=== PATIENT | male | born 1970 | race Caucasian/White ===

== ENCOUNTER 2017-05-17 07:07 | Emergency (ER) | payer MEDICAID, SELFPAY ==
[2017-05-17] MEDS: KETOROLAC 60 MG/2 ML VIAL (J1885) IM ×2 (07:48)
[2017-05-17] MEDS: METHOCARBAMOL 500 MG TAB PO ×2 (07:48)
[2017-05-17] MEDS: NORCO, ANEXSIA 5/325MG TABLET (HYDROcodone/ACETAMINOPHEN) PO ×2 (07:48)
== END 2017-05-17 08:32 | disposition home or self-care (01) ==
LOC: M ED 07:07
DX: S39.012A Strain of muscle, fascia and tendon of lower back, initial encounter (principal); X50.0XXA Overexertion from strenuous movement or load, initial encounter; Y92.009 Unspecified place in unspecified non-institutional (private) residence as the place of occurrence of the external cause; Y93.89 Activity, other specified; F17.210 Nicotine dependence, cigarettes, uncomplicated; Z79.899 Other long term (current) drug therapy
CPT/HCPCS: J1885

== ENCOUNTER 2017-05-17 23:27 | Inpatient (IN) | payer MEDICAID, SELFPAY ==
[2017-05-17] MEDS: NS 1,000 ML IV ×2 (23:43→23:50)
[2017-05-17] MEDS: EPINEPHrine 1MG/10ML SYRINGE 1.5IN IV ×2 (23:45→23:48)
[2017-05-17] MEDS: SODIUM BICARBONATE 8.4% INJ 50 ML SYRINGE IV ×2 (23:45→23:47)
[2017-05-17] MEDS: VECURONIUM BROMIDE 10 MG VIAL IV (23:55)
[2017-05-17] MEDS ORDERED: ISOVUE-370 76% 100ML VIAL (Q9967) As Ordered (23:56)
[2017-05-18] MEDS: NS 1,000 ML IV ×3 (00:10→18:07)
[2017-05-18 00:38] LABS: BEDSIDE GLUCOSE 440 MG/DL (70-105)
[2017-05-18 00:39] LABS: INR 1.21; PROTHROMBIN TIME 15.5 SECONDS (12.4-14.5)
[2017-05-18 00:40] LABS: ANION GAP 16 MEQ/L (8-16); BLOOD UREA NITROGEN 32 MG/DL (7-18); CALCIUM LEVEL 8.3 MG/DL (8.5-10.1); CARBON DIOXIDE LEVEL 18 MEQ/L (21-32); CHLORIDE LEVEL 107 MEQ/L (98-107); CREATININE FOR GFR 2.45 MG/DL (0.70-1.30); GLOMERULAR FILTRATION RATE 30.2 (>60); GLUCOSE, FASTING 321 MG/DL (70-100); PARTIAL THROMBOPLASTIN TIME 23.5 SECONDS (26.8-37.9); POTASSIUM SERUM 3.4 MEQ/L (3.5-5.1); SODIUM LEVEL 141 MEQ/L (136-145)
[2017-05-18 00:41] LABS: ABG BASE EXCESS -19.7 (-2.0-2.0); ABG HCO3 11.2 MEQ/L (22.0-26.0); ABG O2 SATURATION 97.6 % (95.0-99.0); ABG PARTIAL PRESSURE CO2 54.2 mmHg (35.0-45.0); ABG PARTIAL PRESSURE O2 151.1 mmHg (75.0-100.0); ABG STANDARD HCO3 9.2 MEQ/L (22.0-26.0); ABG TOTAL CO2 12.9 MEQ/L (22.0-29.0)
[2017-05-18 00:47] LABS: ABG pH (ARTERIAL) 6.933 UNITS (7.350-7.450)
[2017-05-18 01:01] LABS: ALBUMIN 3.2 GM/DL (3.2-5.2); ALBUMIN/GLOBULIN RATIO 0.97 (1.00-1.93); ALKALINE PHOSPHATASE 78 U/L (45-117); ALT/SGPT 29 U/L (12-78); AMYLASE 29 U/L (25-115); AST/SGOT 19 U/L (7-37); BILIRUBIN,DIRECT < 0.1 MG/DL (0.0-0.2); BILIRUBIN,TOTAL 0.5 MG/DL (0.2-1.0); CK-MB VALUE MASS 5.6 NG/ML (0.0-3.6); CPK CREATINE PHOSPHOKINASE 200 U/L (39-308); ETHYL ALCOHOL (ETHANOL) < 0.003 % (0.000-0.010); LIPASE 110 U/L (73-393); TOTAL PROTEIN 6.5 GM/DL (6.4-8.2); TROPONIN I 0.29 NG/ML (< 0.10)
[2017-05-18 01:12] LABS: IMMEDIATE SPIN CROSSMATCH 1 20
[2017-05-18 01:24] LABS: LACTIC ACID SEPSIS PROTOCOL 10.2 MMOL/L (0.4-2.0)
[2017-05-18] MEDS: ceFAZolin 1GM INJ (J0690 PER 500MG) As Ordered (01:41)
[2017-05-18] MEDS: HEPARIN SOD (PORCINE) 5000 UNITS/ML VIAL As Ordered (01:45)
[2017-05-18] MEDS: VASOPRESSIN INJ 20 UNITS/ML VIAL As Ordered (01:45)
[2017-05-18 01:50] LABS: TYPE AND SCREEN 1
[2017-05-18] MEDS ORDERED: MIDAZOLAM INJ 5 MG/ML VIAL (J2250) As Ordered ×3 (01:51→02:48)
[2017-05-18] MEDS ORDERED: PHENYLephrine HCL 500 MCG/5 ML (100MCG/ML) SYRINGE (J2370) As Ordered ×3 (02:00→02:13)
[2017-05-18 02:07] LABS: BASO % 0.2 % (0.0-1.0); HEMATOCRIT 33.1 % (42.0-52.0); HEMOGLOBIN 10.8 g/dl (14.0-18.0); IMMATURE GRANULOCYTE % 1.4 % (0-3.0); LYMPH # 5.7 10^3/uL (1.5-4.5); LYMPH % 22.6 % (24.0-44.0); MEAN CORPUSCULAR HEMOGLOBIN 33.2 pg (27.0-33.0); MEAN CORPUSCULAR HGB CONC 32.6 g/dl (32.0-36.5); MEAN CORPUSCULAR VOLUME 101.8 fl (80.0-96.0); MONO # 1.4 10^3/uL (0.0-0.8); MONO % 5.6 % (0.0-5.0); NEUTROPHILS # 17.6 10^3/uL (1.8-7.7); NEUTROPHILS % 70.2 % (36.0-66.0); PLATELET COUNT, AUTOMATED 203 10^3/uL (150-450); POSITIVE DIFF POS FLAG; RED BLOOD COUNT 3.25 10^6/uL (4.30-6.10); RED CELL DISTRIBUTION WIDTH 13.1 % (11.5-14.5)
[2017-05-18 02:23] LABS: ABG DEVICE MECHAN. VENT; ABG HCO3 19.6 MEQ/L (22.0-26.0); ABG O2 SATURATION 99.3 % (95.0-99.0); ABG PARTIAL PRESSURE CO2 58.1 mmHg (35.0-45.0); ABG PARTIAL PRESSURE O2 206.8 mmHg (75.0-100.0); ABG SITE ART LINE; ABG STANDARD HCO3 17.1 MEQ/L (22.0-26.0); ABG TOTAL CO2 21.4 MEQ/L (22.0-29.0)
[2017-05-18 02:26] LABS: ABG pH (ARTERIAL) 7.146 UNITS (7.350-7.450)
[2017-05-18] MEDS ORDERED: ROCURONIUM BROMIDE 50 MG/5 ML VIAL As Ordered ×2 (02:36→02:48)
[2017-05-18] MEDS ORDERED: fentaNYL 250 MCG/5 ML INJECTION (J3010) As Ordered (02:48)
[2017-05-18] MEDS ORDERED: PROPOFOL 200 MG/20 ML VIAL As Ordered (02:48)
[2017-05-18] MEDS ORDERED: ETOMIDATE INJ 20MG/10ML VIAL As Ordered (02:48)
[2017-05-18] MEDS ORDERED: CALCIUM CHLORIDE 10% 1 GM/10 ML SYR As Ordered (02:50)
[2017-05-18] MEDS ORDERED: SODIUM BICARBONATE 8.4% INJ 50 ML SYRINGE As Ordered (02:50)
[2017-05-18 02:59] LABS: ABG BASE EXCESS -8.2 (-2.0-2.0); ABG DEVICE MECHAN. VENT; ABG HCO3 20.1 MEQ/L (22.0-26.0); ABG O2 SATURATION 99.3 % (95.0-99.0); ABG PARTIAL PRESSURE CO2 55.5 mmHg (35.0-45.0); ABG PARTIAL PRESSURE O2 221.4 mmHg (75.0-100.0); ABG STANDARD HCO3 17.8 MEQ/L (22.0-26.0); ABG TOTAL CO2 21.8 MEQ/L (22.0-29.0)
[2017-05-18 03:02] LABS: ABG pH (ARTERIAL) 7.176 UNITS (7.350-7.450)
[2017-05-18] MEDS ORDERED: FUROSEMIDE 100 MG/10 ML VIAL (J1940) As Ordered (03:03)
[2017-05-18 03:09] LABS: HEMATOCRIT 26.9 % (42.0-52.0); HEMOGLOBIN 8.9 g/dl (14.0-18.0); MEAN CORPUSCULAR HEMOGLOBIN 31.6 pg (27.0-33.0); MEAN CORPUSCULAR HGB CONC 33.1 g/dl (32.0-36.5); MEAN CORPUSCULAR VOLUME 95.4 fl (80.0-96.0); RED BLOOD COUNT 2.82 10^6/uL (4.30-6.10); RED CELL DISTRIBUTION WIDTH 14.6 % (11.5-14.5)
[2017-05-18] MEDS: ISOVUE-300 61% 50ML VIAL (Q9967) As Ordered ×2 (03:18)
[2017-05-18 03:28] LABS: INR 2.18; PROTHROMBIN TIME 25.1 SECONDS (12.4-14.5)
[2017-05-18 03:29] LABS: PLATELET COUNT, AUTOMATED 66 10^3/uL (150-450)
[2017-05-18 03:30] LABS: IMMATURE PLATELET FRACTION % 7.4 % (0.0-10.9)
[2017-05-18 03:34] LABS: FIBRINOGEN 115 MG/DL (221-452)
[2017-05-18] MEDS ORDERED: MORPHINE 2 MG/ML 1ML SYRINGE (J2270) IV (03:45)
[2017-05-18] MEDS ORDERED: MOM 30ML SUSPENSION UDC PO (03:45)
[2017-05-18] MEDS ORDERED: BISACODYL 10 MG SUPP PR (03:45)
[2017-05-18 03:55] LABS: ANION GAP 6 MEQ/L (8-16); BLOOD UREA NITROGEN 29 MG/DL (7-18); CARBON DIOXIDE LEVEL 25 MEQ/L (21-32); CHLORIDE LEVEL 113 MEQ/L (98-107); CREATININE FOR GFR 1.72 MG/DL (0.70-1.30); GLOMERULAR FILTRATION RATE 45.4 (>60); GLUCOSE, FASTING 216 MG/DL (70-100); SODIUM LEVEL 144 MEQ/L (136-145)
[2017-05-18] MEDS: METOPROLOL 5 MG/5 ML VIAL IV ×4 (04:00→21:40)
[2017-05-18 04:07] LABS: BASO # 0.1 10^3/uL (0.0-0.2); BASO % 0.3 % (0.0-1.0); EOS % 0.2 % (0.0-3.0); HEMATOCRIT 31.1 % (42.0-52.0); HEMOGLOBIN 10.4 g/dl (14.0-18.0); IMMATURE GRANULOCYTE % 3.3 % (0-3.0); LYMPH # 2.1 10^3/uL (1.5-4.5); LYMPH % 10.4 % (24.0-44.0); MEAN CORPUSCULAR HEMOGLOBIN 31.6 pg (27.0-33.0); MEAN CORPUSCULAR HGB CONC 33.4 g/dl (32.0-36.5); MEAN CORPUSCULAR VOLUME 94.5 fl (80.0-96.0); MONO # 1.4 10^3/uL (0.0-0.8); MONO % 7.1 % (0.0-5.0); NEUTROPHILS % 78.7 % (36.0-66.0); RED BLOOD COUNT 3.29 10^6/uL (4.30-6.10); RED CELL DISTRIBUTION WIDTH 14.8 % (11.5-14.5); WHITE BLOOD COUNT 20.4 10^3/uL (4.0-10.0)
[2017-05-18 04:08] LABS: PLATELET COUNT, AUTOMATED 80 10^3/uL (150-450)
[2017-05-18 04:12] LABS: CALCIUM LEVEL 5.3 MG/DL (8.5-10.1); POTASSIUM SERUM 7.1 MEQ/L (3.5-5.1)
[2017-05-18] MEDS ORDERED: CALCIUM GLUCONATE 1,000MG/10ML VIAL (100MG/ML) (J0610) As Ordered (04:13)
[2017-05-18 04:17] LABS: ABG DEVICE MECHAN. VENT; ABG O2 LITER FLOW 100; ABG O2 SATURATION 95.9 % (95.0-99.0); ABG PARTIAL PRESSURE CO2 56.2 mmHg (35.0-45.0); ABG PARTIAL PRESSURE O2 87.2 mmHg (75.0-100.0); ABG STANDARD HCO3 20.3 MEQ/L (22.0-26.0); ABG TOTAL CO2 24.7 MEQ/L (22.0-29.0)
[2017-05-18 04:18] LABS: ABG pH (ARTERIAL) 7.229 UNITS (7.350-7.450)
[2017-05-18] MEDS ORDERED: SUCCINYLCHOLINE 100 MG/5 ML SYRINGE (J0330) (04:18)
[2017-05-18] MEDS ORDERED: NOREPINEPHRINE 4 MG/4 ML AMP As Ordered (04:18)
[2017-05-18] MEDS ORDERED: ETOMIDATE INJ 20MG/10ML VIAL (04:19)
[2017-05-18] MEDS ORDERED: VECURONIUM BROMIDE 10 MG VIAL (04:19)
[2017-05-18] MEDS ORDERED: MIDAZOLAM INJ 2 MG/2 ML VIAL (J2250) As Ordered (04:25)
[2017-05-18] MEDS: NOREPINEPHRINE BITARTRATE 8 MG in D5W 492 ML IV ×5 (04:30→23:07)
[2017-05-18] MEDS: MIDAZOLAM INJ 2 MG/2 ML VIAL (J2250) IV ×12 (04:45→19:53)
[2017-05-18] MEDS: CALCIUM GLUCONATE 1,000 MG in D5W MINI-BAG PLUS 100 ML IV ×4 (04:45→21:08)
[2017-05-18] MEDS: SOD POLYSTYRENE SULFONATE SUSP 15 GM/60 ML UD NG (04:45)
[2017-05-18 05:16] LABS: ALBUMIN 2.4 GM/DL (3.2-5.2); ALKALINE PHOSPHATASE 62 U/L (45-117); ALT/SGPT 50 U/L (12-78); ANION GAP 8 MEQ/L (8-16); AST/SGOT 58 U/L (7-37); BILIRUBIN,TOTAL 0.3 MG/DL (0.2-1.0); BLOOD UREA NITROGEN 30 MG/DL (7-18); CALCIUM LEVEL 7.1 MG/DL (8.5-10.1); CARBON DIOXIDE LEVEL 24 MEQ/L (21-32); CHLORIDE LEVEL 113 MEQ/L (98-107); GLOMERULAR FILTRATION RATE 43.1 (>60); GLUCOSE, FASTING 156 MG/DL (70-100); SODIUM LEVEL 145 MEQ/L (136-145); TOTAL PROTEIN 4.8 GM/DL (6.4-8.2)
[2017-05-18 05:17] LABS: TYPE AND SCREEN 1
[2017-05-18 05:19] LABS: POTASSIUM SERUM 5.3 MEQ/L (3.5-5.1)
[2017-05-18] MEDS: NS 0.45% 1,000 ML IV ×2 (05:24→12:42)
[2017-05-18] MEDS ORDERED: SODIUM BICARBONATE 8.4% INJ 50 ML SYRINGE ×2 (05:43→06:35)
[2017-05-18] MEDS ORDERED: REFRIGERATOR IV KEYS XX (06:00)
[2017-05-18] MEDS: MIDAZOLAM HCL 100 MG in D5W 80 ML IV (06:09)
[2017-05-18 06:14] LABS: ABG BASE EXCESS -2.2 (-2.0-2.0); ABG HCO3 22.5 MEQ/L (22.0-26.0); ABG O2 SATURATION 97.3 % (95.0-99.0); ABG PARTIAL PRESSURE CO2 38.6 mmHg (35.0-45.0); ABG PARTIAL PRESSURE O2 95.6 mmHg (75.0-100.0); ABG STANDARD HCO3 22.6 MEQ/L (22.0-26.0); ABG TOTAL CO2 23.7 MEQ/L (22.0-29.0); ABG pH (ARTERIAL) 7.384 UNITS (7.350-7.450)
[2017-05-18] MEDS ORDERED: EPINEPHrine 1MG/10ML SYRINGE 1.5IN (06:35)
[2017-05-18 06:58] LABS: HEMATOCRIT 30.9 % (42.0-52.0); HEMOGLOBIN 10.4 g/dl (14.0-18.0); MEAN CORPUSCULAR HEMOGLOBIN 31.2 pg (27.0-33.0); MEAN CORPUSCULAR HGB CONC 33.7 g/dl (32.0-36.5); MEAN CORPUSCULAR VOLUME 92.8 fl (80.0-96.0); RED BLOOD COUNT 3.33 10^6/uL (4.30-6.10); WHITE BLOOD COUNT 22.5 10^3/uL (4.0-10.0)
[2017-05-18 07:00] LABS: PLATELET COUNT, AUTOMATED 79 10^3/uL (150-450)
[2017-05-18 07:11] LABS: INR 1.27; PROTHROMBIN TIME 16.2 SECONDS (12.4-14.5)
[2017-05-18 07:12] LABS: PARTIAL THROMBOPLASTIN TIME 32.4 SECONDS (26.8-37.9)
[2017-05-18 07:16] LABS: ANION GAP 8 MEQ/L (8-16); BLOOD UREA NITROGEN 32 MG/DL (7-18); CALCIUM LEVEL 7.3 MG/DL (8.5-10.1); CARBON DIOXIDE LEVEL 25 MEQ/L (21-32); CHLORIDE LEVEL 113 MEQ/L (98-107); GLOMERULAR FILTRATION RATE 40.5 (>60); GLUCOSE, FASTING 145 MG/DL (70-100); POTASSIUM SERUM 4.2 MEQ/L (3.5-5.1); SODIUM LEVEL 146 MEQ/L (136-145)
[2017-05-18] MEDS: MORPHINE 4 MG/ML 1ML VIAL/SYRINGE (J2270) IV ×7 (07:24→21:00)
[2017-05-18] MEDS: DOCUSATE SODIUM 100 MG CAP PO ×2 (07:58→21:00)
[2017-05-18] MEDS: SENOKOT S TAB PO ×2 (07:59→21:00)
[2017-05-18] MEDS: IPRATROPIUM 0.5MG/ALBUTEROL 2.5MG INH SOL UD 3ML (DUONEB)(J7620) NEB ×5 (08:14→23:40)
[2017-05-18] MEDS: PANTOPRAZOLE 40MG INJ (PROTONIX) (C9113) IV ×2 (08:26→21:08)
[2017-05-18] MEDS: CHLORHEXIDINE ORAL RINSE 0.12%/15ML 120ML BOTTLE MT ×2 (10:05→20:59)
[2017-05-18 11:17] LABS: PHOSPHORUS LEVEL 3.7 MG/DL (2.5-4.9)
[2017-05-18 12:28] LABS: ALBUMIN 2.9 GM/DL (3.2-5.2); ALBUMIN/GLOBULIN RATIO 1.12 (1.00-1.93); ALKALINE PHOSPHATASE 61 U/L (45-117); ALT/SGPT 63 U/L (12-78); ANION GAP 9 MEQ/L (8-16); AST/SGOT 92 U/L (7-37); BILIRUBIN,TOTAL 0.3 MG/DL (0.2-1.0); BLOOD UREA NITROGEN 35 MG/DL (7-18); CALCIUM LEVEL 7.3 MG/DL (8.5-10.1); CARBON DIOXIDE LEVEL 25 MEQ/L (21-32); CHLORIDE LEVEL 112 MEQ/L (98-107); GLOMERULAR FILTRATION RATE 40.5 (>60); GLUCOSE, FASTING 168 MG/DL (70-100); POTASSIUM SERUM 4.1 MEQ/L (3.5-5.1); SODIUM LEVEL 146 MEQ/L (136-145); TOTAL PROTEIN 5.5 GM/DL (6.4-8.2)
[2017-05-18 12:30] LABS: LACTIC ACID SEPSIS PROTOCOL 2.1 MMOL/L (0.4-2.0)
[2017-05-18 15:42] LABS: HEMATOCRIT 28.6 % (42.0-52.0); HEMOGLOBIN 9.9 g/dl (14.0-18.0)
[2017-05-18 17:17] LABS: HEMATOCRIT 27.6 % (42.0-52.0); HEMOGLOBIN 9.5 g/dl (14.0-18.0); MEAN CORPUSCULAR HEMOGLOBIN 31.6 pg (27.0-33.0); MEAN CORPUSCULAR HGB CONC 34.4 g/dl (32.0-36.5); MEAN CORPUSCULAR VOLUME 91.7 fl (80.0-96.0); RED BLOOD COUNT 3.01 10^6/uL (4.30-6.10); WHITE BLOOD COUNT 23.3 10^3/uL (4.0-10.0)
[2017-05-18 17:24] LABS: PLATELET COUNT, AUTOMATED 75 10^3/uL (150-450); POS COUNT POS FLAG
[2017-05-18 17:26] LABS: IMMATURE PLATELET FRACTION % 11.7 % (0.0-10.9)
[2017-05-18 17:28] LABS: INR 1.21; PARTIAL THROMBOPLASTIN TIME 26.9 SECONDS (26.8-37.9); PROTHROMBIN TIME 15.5 SECONDS (12.4-14.5)
[2017-05-18 17:40] LABS: ALBUMIN 2.9 GM/DL (3.2-5.2); ALBUMIN/GLOBULIN RATIO 1.16 (1.00-1.93); ALKALINE PHOSPHATASE 58 U/L (45-117); ALT/SGPT 60 U/L (12-78); ANION GAP 9 MEQ/L (8-16); AST/SGOT 97 U/L (7-37); BILIRUBIN,TOTAL 0.4 MG/DL (0.2-1.0); BLOOD UREA NITROGEN 38 MG/DL (7-18); CARBON DIOXIDE LEVEL 25 MEQ/L (21-32); CHLORIDE LEVEL 111 MEQ/L (98-107); CREATININE FOR GFR 2.18 MG/DL (0.70-1.30); GLOMERULAR FILTRATION RATE 34.5 (>60); GLUCOSE, FASTING 145 MG/DL (70-100); PHOSPHORUS LEVEL 4.2 MG/DL (2.5-4.9); SODIUM LEVEL 145 MEQ/L (136-145); TOTAL PROTEIN 5.4 GM/DL (6.4-8.2)
[2017-05-18 22:43] LABS: CK-MB VALUE MASS 45.6 NG/ML (0.0-3.6); CPK CREATINE PHOSPHOKINASE 3557 U/L (39-308); MB/CK RELATIVE INDEX 1.28 (< OR =4)
[2017-05-18] MEDS: NS 500 ML IV (22:45)
[2017-05-18 22:53] LABS: TROPONIN I 1.75 NG/ML (< 0.10)
[2017-05-18 23:45] LABS: CPK CREATINE PHOSPHOKINASE 3535 U/L (39-308)
[2017-05-18 23:46] LABS: CK-MB VALUE MASS 42.1 NG/ML (0.0-3.6); MB/CK RELATIVE INDEX 1.19 (< OR =4); TROPONIN I 1.71 NG/ML (< 0.10)
[2017-05-19 00:11] LABS: HEMATOCRIT 27.5 % (42.0-52.0); HEMOGLOBIN 9.5 g/dl (14.0-18.0)
[2017-05-19 00:53] LABS: CPK CREATINE PHOSPHOKINASE 3832 U/L (39-308)
[2017-05-19 00:54] LABS: MB/CK RELATIVE INDEX 1.06 (< OR =4); TROPONIN I 1.54 NG/ML (< 0.10)
[2017-05-19] MEDS: MIDAZOLAM INJ 2 MG/2 ML VIAL (J2250) IV ×8 (01:01→22:29)
[2017-05-19] MEDS: MORPHINE 4 MG/ML 1ML VIAL/SYRINGE (J2270) IV ×5 (01:02→22:29)
[2017-05-19 01:03] LABS: ABG BASE EXCESS -1.4 (-2.0-2.0); ABG HCO3 22.3 MEQ/L (22.0-26.0); ABG O2 SATURATION 88.1 % (95.0-99.0); ABG PARTIAL PRESSURE CO2 34.1 mmHg (35.0-45.0); ABG PARTIAL PRESSURE O2 54.9 mmHg (75.0-100.0); ABG STANDARD HCO3 23.1 MEQ/L (22.0-26.0); ABG TOTAL CO2 23.4 MEQ/L (22.0-29.0); ABG pH (ARTERIAL) 7.434 UNITS (7.350-7.450)
[2017-05-19] MEDS: NS 1,000 ML IV ×3 (01:31→10:00)
[2017-05-19 02:02] LABS: CPK CREATINE PHOSPHOKINASE 4331 U/L (39-308)
[2017-05-19 02:04] LABS: CK-MB VALUE MASS 43.6 NG/ML (0.0-3.6); TROPONIN I 1.74 NG/ML (< 0.10)
[2017-05-19] MEDS: MIDAZOLAM HCL 100 MG in D5W 80 ML IV (03:07)
[2017-05-19] MEDS: METOPROLOL 5 MG/5 ML VIAL IV ×4 (04:00→21:19)
[2017-05-19] MEDS: IPRATROPIUM 0.5MG/ALBUTEROL 2.5MG INH SOL UD 3ML (DUONEB)(J7620) NEB ×3 (04:10→11:28)
[2017-05-19 05:25] LABS: HEMATOCRIT 26.1 % (42.0-52.0); HEMOGLOBIN 8.9 g/dl (14.0-18.0); MEAN CORPUSCULAR HEMOGLOBIN 31.9 pg (27.0-33.0); MEAN CORPUSCULAR HGB CONC 34.1 g/dl (32.0-36.5); MEAN CORPUSCULAR VOLUME 93.5 fl (80.0-96.0); RED BLOOD COUNT 2.79 10^6/uL (4.30-6.10); RED CELL DISTRIBUTION WIDTH 16.3 % (11.5-14.5)
[2017-05-19 05:36] LABS: INR 1.22; PARTIAL THROMBOPLASTIN TIME 30.3 SECONDS (26.8-37.9); PROTHROMBIN TIME 15.6 SECONDS (12.4-14.5)
[2017-05-19 05:41] LABS: PLATELET COUNT, AUTOMATED 69 10^3/uL (150-450)
[2017-05-19 05:47] LABS: ALBUMIN 2.6 GM/DL (3.2-5.2); ALBUMIN/GLOBULIN RATIO 0.84 (1.00-1.93); ALKALINE PHOSPHATASE 57 U/L (45-117); ALT/SGPT 69 U/L (12-78); ANION GAP 8 MEQ/L (8-16); AST/SGOT 183 U/L (7-37); BILIRUBIN,DIRECT 0.1 MG/DL (0.0-0.2); BILIRUBIN,TOTAL 0.4 MG/DL (0.2-1.0); BLOOD UREA NITROGEN 39 MG/DL (7-18); CARBON DIOXIDE LEVEL 25 MEQ/L (21-32); CHLORIDE LEVEL 112 MEQ/L (98-107); CREATININE FOR GFR 1.78 MG/DL (0.70-1.30); GLOMERULAR FILTRATION RATE 43.6 (>60); GLUCOSE, FASTING 157 MG/DL (70-100); POTASSIUM SERUM 3.9 MEQ/L (3.5-5.1); SODIUM LEVEL 145 MEQ/L (136-145); TOTAL PROTEIN 5.7 GM/DL (6.4-8.2)
[2017-05-19 05:57] LABS: CPK CREATINE PHOSPHOKINASE 5189 U/L (39-308)
[2017-05-19 05:58] LABS: CK-MB VALUE MASS 43.9 NG/ML (0.0-3.6); MB/CK RELATIVE INDEX 0.84 (< OR =4); TROPONIN I 1.81 NG/ML (< 0.10)
[2017-05-19 06:01] LABS: ABG BASE EXCESS -0.8 (-2.0-2.0); ABG HCO3 22.9 MEQ/L (22.0-26.0); ABG O2 SATURATION 97.5 % (95.0-99.0); ABG PARTIAL PRESSURE CO2 34.4 mmHg (35.0-45.0); ABG PARTIAL PRESSURE O2 98.8 mmHg (75.0-100.0); ABG STANDARD HCO3 23.8 MEQ/L (22.0-26.0); ABG pH (ARTERIAL) 7.442 UNITS (7.350-7.450)
[2017-05-19] MEDS: NOREPINEPHRINE BITARTRATE 8 MG in D5W 492 ML IV ×2 (06:56→09:28)
[2017-05-19] MEDS: BUDESONIDE 0.5 MG/2 ML INHALATION SUSPENSION INH ×2 (08:00→20:23)
[2017-05-19] MEDS ORDERED: PROPOFOL 1,000 MG/100 ML VIAL As Ordered (08:10)
[2017-05-19] MEDS: PROPOFOL 1,000 MG in APPROPRIATE DILUENT 1 EA IV ×4 (08:20→23:57)
[2017-05-19] MEDS: SENOKOT S TAB PO ×2 (09:00→21:19)
[2017-05-19] MEDS: DOCUSATE SODIUM 100 MG CAP PO ×2 (09:00→20:33)
[2017-05-19 09:01] LABS: ABG BASE EXCESS -2.9 (-2.0-2.0); ABG HCO3 21.7 MEQ/L (22.0-26.0); ABG PARTIAL PRESSURE CO2 36.8 mmHg (35.0-45.0); ABG PARTIAL PRESSURE O2 56.7 mmHg (75.0-100.0); ABG STANDARD HCO3 21.9 MEQ/L (22.0-26.0); ABG TOTAL CO2 22.8 MEQ/L (22.0-29.0); ABG pH (ARTERIAL) 7.388 UNITS (7.350-7.450)
[2017-05-19 11:37] LABS: ABG BASE EXCESS -1.4 (-2.0-2.0); ABG HCO3 22.4 MEQ/L (22.0-26.0); ABG O2 SATURATION 88.6 % (95.0-99.0); ABG PARTIAL PRESSURE CO2 34.4 mmHg (35.0-45.0); ABG PARTIAL PRESSURE O2 53.7 mmHg (75.0-100.0); ABG STANDARD HCO3 23.2 MEQ/L (22.0-26.0); ABG TOTAL CO2 23.5 MEQ/L (22.0-29.0); ABG pH (ARTERIAL) 7.432 UNITS (7.350-7.450)
[2017-05-19] MEDS: CHLORHEXIDINE ORAL RINSE 0.12%/15ML 120ML BOTTLE MT ×2 (11:54→20:33)
[2017-05-19] MEDS: CALCIUM GLUCONATE 1,000 MG in D5W MINI-BAG PLUS 100 ML IV (11:54)
[2017-05-19] MEDS: PANTOPRAZOLE 40MG INJ (PROTONIX) (C9113) IV ×2 (11:54→20:15)
[2017-05-19 12:26] LABS: MAGNESIUM LEVEL 1.8 MG/DL (1.8-2.4)
[2017-05-19 13:01] LABS: HEMATOCRIT 29.2 % (42.0-52.0); HEMOGLOBIN 9.9 g/dl (14.0-18.0); MEAN CORPUSCULAR HEMOGLOBIN 31.4 pg (27.0-33.0); MEAN CORPUSCULAR HGB CONC 33.9 g/dl (32.0-36.5); MEAN CORPUSCULAR VOLUME 92.7 fl (80.0-96.0); RED BLOOD COUNT 3.15 10^6/uL (4.30-6.10); RED CELL DISTRIBUTION WIDTH 16.1 % (11.5-14.5); WHITE BLOOD COUNT 20.7 10^3/uL (4.0-10.0)
[2017-05-19 13:02] LABS: PLATELET COUNT, AUTOMATED 63 10^3/uL (150-450)
[2017-05-19 13:17] LABS: ANION GAP 7 MEQ/L (8-16); BLOOD UREA NITROGEN 37 MG/DL (7-18); CALCIUM LEVEL 7.1 MG/DL (8.5-10.1); CARBON DIOXIDE LEVEL 25 MEQ/L (21-32); CHLORIDE LEVEL 113 MEQ/L (98-107); GLOMERULAR FILTRATION RATE 49.4 (>60); GLUCOSE, FASTING 146 MG/DL (70-100); SODIUM LEVEL 145 MEQ/L (136-145)
[2017-05-19] MEDS: NS 0.45% 1,000 ML IV (14:00)
[2017-05-19] MEDS ORDERED: FUROSEMIDE 40 MG/4 ML VIAL (J1940) As Ordered (14:35)
[2017-05-19] MEDS: FUROSEMIDE 40 MG/4 ML VIAL (J1940) IV (14:45)
[2017-05-19] MEDS: ALBUTEROL SULFATE 2.5 MG/0.5 ML INH NEB SOLN NEB ×2 (15:46→20:23)
[2017-05-19] MEDS: VANCOMYCIN HCL 1,000 MG, VIAL MATE ADAPTER 1 EACH in D5W 250 ML IV ×2 (16:07→20:15)
[2017-05-19 16:31] LABS: BEDSIDE GLUCOSE 131 MG/DL (70-105)
[2017-05-19] MEDS: PIPERACILLIN/TAZOBACTAM SOD 3.375 GM in APPROPRIATE DILUENT 1 EA IV ×2 (17:57→23:56)
[2017-05-20] MEDS: ALBUTEROL SULFATE 2.5 MG/0.5 ML INH NEB SOLN NEB ×7 (00:17→23:38)
[2017-05-20] MEDS: MORPHINE 4 MG/ML 1ML VIAL/SYRINGE (J2270) IV ×2 (00:36→16:01)
[2017-05-20] MEDS: PROPOFOL 1,000 MG in APPROPRIATE DILUENT 1 EA IV ×7 (02:56→22:18)
[2017-05-20] MEDS: METOPROLOL 5 MG/5 ML VIAL IV ×5 (04:19→21:17)
[2017-05-20] MEDS: VANCOMYCIN HCL 1,000 MG, VIAL MATE ADAPTER 1 EACH in D5W 250 ML IV ×3 (04:39→20:21)
[2017-05-20] MEDS: PIPERACILLIN/TAZOBACTAM SOD 3.375 GM in APPROPRIATE DILUENT 1 EA IV ×4 (05:06→23:57)
[2017-05-20 05:23] LABS: HEMATOCRIT 27.3 % (42.0-52.0); MEAN CORPUSCULAR HEMOGLOBIN 31.3 pg (27.0-33.0); MEAN CORPUSCULAR VOLUME 94.8 fl (80.0-96.0); RED BLOOD COUNT 2.88 10^6/uL (4.30-6.10); RED CELL DISTRIBUTION WIDTH 16.4 % (11.5-14.5); WHITE BLOOD COUNT 19.7 10^3/uL (4.0-10.0)
[2017-05-20 05:24] LABS: ABG BASE EXCESS -0.5 (-2.0-2.0); ABG HCO3 23.2 MEQ/L (22.0-26.0); ABG O2 SATURATION 92.6 % (95.0-99.0); ABG PARTIAL PRESSURE CO2 34.6 mmHg (35.0-45.0); ABG PARTIAL PRESSURE O2 64.4 mmHg (75.0-100.0); ABG TOTAL CO2 24.3 MEQ/L (22.0-29.0); ABG pH (ARTERIAL) 7.445 UNITS (7.350-7.450)
[2017-05-20 05:26] LABS: IMMATURE PLATELET FRACTION % 8.6 % (0.0-10.9); PLATELET COUNT, AUTOMATED 68 10^3/uL (150-450)
[2017-05-20 05:34] LABS: INR 1.34; PARTIAL THROMBOPLASTIN TIME 33.8 SECONDS (26.8-37.9); PROTHROMBIN TIME 16.9 SECONDS (12.4-14.5)
[2017-05-20 05:39] LABS: ALBUMIN 2.5 GM/DL (3.2-5.2); ALBUMIN/GLOBULIN RATIO 0.74 (1.00-1.93); ALKALINE PHOSPHATASE 63 U/L (45-117); ALT/SGPT 83 U/L (12-78); ANION GAP 6 MEQ/L (8-16); AST/SGOT 286 U/L (7-37); BILIRUBIN,DIRECT 0.4 MG/DL (0.0-0.2); BILIRUBIN,TOTAL 0.7 MG/DL (0.2-1.0); BLOOD UREA NITROGEN 38 MG/DL (7-18); CALCIUM LEVEL 7.2 MG/DL (8.5-10.1); CARBON DIOXIDE LEVEL 26 MEQ/L (21-32); CHLORIDE LEVEL 111 MEQ/L (98-107); CREATININE FOR GFR 1.71 MG/DL (0.70-1.30); GLOMERULAR FILTRATION RATE 45.7 (>60); GLUCOSE, FASTING 159 MG/DL (70-100); POTASSIUM SERUM 3.8 MEQ/L (3.5-5.1); SODIUM LEVEL 143 MEQ/L (136-145); TOTAL PROTEIN 5.9 GM/DL (6.4-8.2)
[2017-05-20] MEDS: BUDESONIDE 0.5 MG/2 ML INHALATION SUSPENSION INH ×2 (07:51→20:07)
[2017-05-20] MEDS: MIDAZOLAM INJ 2 MG/2 ML VIAL (J2250) IV ×2 (09:24→16:00)
[2017-05-20] MEDS: DOCUSATE SODIUM 100 MG CAP PO ×2 (09:27→20:16)
[2017-05-20] MEDS: CHLORHEXIDINE ORAL RINSE 0.12%/15ML 120ML BOTTLE MT ×2 (09:27→20:16)
[2017-05-20] MEDS: PANTOPRAZOLE 40MG INJ (PROTONIX) (C9113) IV ×2 (11:01→20:17)
[2017-05-20] MEDS: SENOKOT S TAB PO ×2 (11:02→20:17)
[2017-05-20] MEDS: NS 500 ML IV ×2 (13:00→13:01)
[2017-05-20 13:10] LABS: VANCOMYCIN LEVEL TROUGH 13.5 UG/ML (10.0-20.0)
[2017-05-20] MEDS: NS 0.45% 1,000 ML IV (13:20)
[2017-05-20] MEDS: ACETAMINOPHEN TAB 650MG DOSE (2X325MG) PO (16:25)
[2017-05-20 18:28] LABS: BEDSIDE GLUCOSE 127 MG/DL (70-105)
[2017-05-21] MEDS: PROPOFOL 1,000 MG in APPROPRIATE DILUENT 1 EA IV ×8 (01:39→23:22)
[2017-05-21] MEDS: ALBUTEROL SULFATE 2.5 MG/0.5 ML INH NEB SOLN NEB ×6 (03:56→23:45)
[2017-05-21] MEDS: VANCOMYCIN HCL 1,000 MG, VIAL MATE ADAPTER 1 EACH in D5W 250 ML IV ×3 (04:24→20:49)
[2017-05-21] MEDS: METOPROLOL 5 MG/5 ML VIAL IV ×4 (04:25→21:15)
[2017-05-21] MEDS: NS 0.45% 1,000 ML IV (04:26)
[2017-05-21] MEDS: MIDAZOLAM INJ 2 MG/2 ML VIAL (J2250) IV ×4 (04:26→18:10)
[2017-05-21] MEDS: PIPERACILLIN/TAZOBACTAM SOD 3.375 GM in APPROPRIATE DILUENT 1 EA IV ×4 (06:07→23:24)
[2017-05-21 06:11] LABS: HEMATOCRIT 27.4 % (42.0-52.0); HEMOGLOBIN 8.4 g/dl (14.0-18.0); MEAN CORPUSCULAR HEMOGLOBIN 32.4 pg (27.0-33.0); MEAN CORPUSCULAR HGB CONC 30.7 g/dl (32.0-36.5); MEAN CORPUSCULAR VOLUME 105.8 fl (80.0-96.0); RED BLOOD COUNT 2.59 10^6/uL (4.30-6.10); RED CELL DISTRIBUTION WIDTH 16.4 % (11.5-14.5); WHITE BLOOD COUNT 16.8 10^3/uL (4.0-10.0)
[2017-05-21 06:13] LABS: PLATELET COUNT, AUTOMATED 87 10^3/uL (150-450)
[2017-05-21 06:14] LABS: ABG BASE EXCESS -1.5 (-2.0-2.0); ABG O2 SATURATION 96.2 % (95.0-99.0); ABG PARTIAL PRESSURE CO2 32.5 mmHg (35.0-45.0); ABG PARTIAL PRESSURE O2 82.4 mmHg (75.0-100.0); ABG STANDARD HCO3 23.2 MEQ/L (22.0-26.0); ABG pH (ARTERIAL) 7.449 UNITS (7.350-7.450)
[2017-05-21 06:15] LABS: IMMATURE PLATELET FRACTION % 8.8 % (0.0-10.9)
[2017-05-21 06:21] LABS: INR 1.21; PROTHROMBIN TIME 15.5 SECONDS (12.4-14.5)
[2017-05-21 06:22] LABS: PARTIAL THROMBOPLASTIN TIME 34.3 SECONDS (26.8-37.9)
[2017-05-21 06:31] LABS: ALBUMIN 2.3 GM/DL (3.2-5.2); ALBUMIN/GLOBULIN RATIO 0.62 (1.00-1.93); ALKALINE PHOSPHATASE 64 U/L (45-117); ALT/SGPT 84 U/L (12-78); ANION GAP 6 MEQ/L (8-16); AST/SGOT 242 U/L (7-37); BILIRUBIN,DIRECT 0.6 MG/DL (0.0-0.2); BILIRUBIN,TOTAL 1.1 MG/DL (0.2-1.0); BLOOD UREA NITROGEN 34 MG/DL (7-18); CALCIUM LEVEL 7.4 MG/DL (8.5-10.1); CARBON DIOXIDE LEVEL 25 MEQ/L (21-32); CHLORIDE LEVEL 113 MEQ/L (98-107); CREATININE FOR GFR 1.78 MG/DL (0.70-1.30); GLOMERULAR FILTRATION RATE 43.6 (>60); GLUCOSE, FASTING 144 MG/DL (70-100); POTASSIUM SERUM 3.7 MEQ/L (3.5-5.1); SODIUM LEVEL 144 MEQ/L (136-145)
[2017-05-21] MEDS: BUDESONIDE 0.5 MG/2 ML INHALATION SUSPENSION INH ×2 (07:25→19:59)
[2017-05-21] MEDS: CHLORHEXIDINE ORAL RINSE 0.12%/15ML 120ML BOTTLE MT ×2 (08:35→20:50)
[2017-05-21] MEDS: SENOKOT S TAB PO ×2 (09:37→20:50)
[2017-05-21] MEDS: PANTOPRAZOLE 40MG INJ (PROTONIX) (C9113) IV ×2 (09:37→20:49)
[2017-05-21] MEDS: DOCUSATE SODIUM 100 MG CAP PO ×2 (09:37→20:50)
[2017-05-21 11:25] LABS: MAGNESIUM LEVEL 2.5 MG/DL (1.8-2.4); PHOSPHORUS LEVEL 2.5 MG/DL (2.5-4.9)
[2017-05-21 13:37] LABS: VANCOMYCIN LEVEL TROUGH 18.9 UG/ML (10.0-20.0)
[2017-05-21] MEDS: HEPARIN SOD (PORCINE) 5000 UNITS/ML VIAL SQ ×2 (14:20→21:16)
[2017-05-21] MEDS ORDERED: SLF 3 ML SYR IV (16:00)
[2017-05-21] MEDS ORDERED: SODIUM CHLORIDE 0.9% INJ 10 ML SYR IV (16:00)
[2017-05-21] MEDS: POTASSIUM CHLORIDE IV (17:57)
[2017-05-21] MEDS: FAT EMULSION IV 20% 500 ML IV (17:57)
[2017-05-21] MEDS: SODIUM CHLORIDE IV (17:57)
[2017-05-21] MEDS: [UNRECOGNIZED DRUG - OTHER] IV (17:57)
[2017-05-21 17:58] LABS: BEDSIDE GLUCOSE 107 MG/DL (70-105)
[2017-05-21] MEDS: HumaLOG INSULIN (NovoLOG) PER UNIT SC ×2 (17:58→23:32)
[2017-05-21] MEDS: SODIUM CHLORIDE 0.9% INJ 10 ML SYR IV (21:16)
[2017-05-21] MEDS: SLF 3 ML SYR IV (21:23)
[2017-05-21 23:36] LABS: BEDSIDE GLUCOSE 144 MG/DL (70-105)
[2017-05-22] MEDS: PROPOFOL 1,000 MG in APPROPRIATE DILUENT 1 EA IV ×9 (02:13→22:16)
[2017-05-22] MEDS: ALBUTEROL SULFATE 2.5 MG/0.5 ML INH NEB SOLN NEB ×6 (02:58→22:52)
[2017-05-22] MEDS: METOPROLOL 5 MG/5 ML VIAL IV ×4 (04:10→21:34)
[2017-05-22 04:27] LABS: HEMOGLOBIN 8.2 g/dl (14.0-18.0); MEAN CORPUSCULAR HEMOGLOBIN 31.8 pg (27.0-33.0); MEAN CORPUSCULAR HGB CONC 32.8 g/dl (32.0-36.5); MEAN CORPUSCULAR VOLUME 96.9 fl (80.0-96.0); PLATELET COUNT, AUTOMATED 112 10^3/uL (150-450); RED BLOOD COUNT 2.58 10^6/uL (4.30-6.10); RED CELL DISTRIBUTION WIDTH 16.1 % (11.5-14.5); WHITE BLOOD COUNT 12.2 10^3/uL (4.0-10.0)
[2017-05-22] MEDS: VANCOMYCIN HCL 1,000 MG, VIAL MATE ADAPTER 1 EACH in D5W 250 ML IV ×3 (04:30→21:33)
[2017-05-22 04:40] LABS: ANION GAP 8 MEQ/L (8-16); BLOOD UREA NITROGEN 32 MG/DL (7-18); CALCIUM LEVEL 7.5 MG/DL (8.5-10.1); CARBON DIOXIDE LEVEL 23 MEQ/L (21-32); CHLORIDE LEVEL 116 MEQ/L (98-107); CREATININE FOR GFR 1.48 MG/DL (0.70-1.30); GLUCOSE, FASTING 145 MG/DL (70-100); MAGNESIUM LEVEL 2.5 MG/DL (1.8-2.4); PHOSPHORUS LEVEL 2.3 MG/DL (2.5-4.9); POTASSIUM SERUM 3.4 MEQ/L (3.5-5.1); SODIUM LEVEL 147 MEQ/L (136-145)
[2017-05-22 04:50] LABS: INR 1.24; PROTHROMBIN TIME 15.8 SECONDS (12.4-14.5)
[2017-05-22 04:51] LABS: PARTIAL THROMBOPLASTIN TIME 36.8 SECONDS (26.8-37.9)
[2017-05-22] MEDS: MIDAZOLAM INJ 2 MG/2 ML VIAL (J2250) IV ×5 (05:16→21:27)
[2017-05-22] MEDS: HEPARIN SOD (PORCINE) 5000 UNITS/ML VIAL SQ ×3 (05:17→21:33)
[2017-05-22] MEDS: PIPERACILLIN/TAZOBACTAM SOD 3.375 GM in APPROPRIATE DILUENT 1 EA IV ×4 (05:17→23:56)
[2017-05-22] MEDS: SODIUM CHLORIDE 0.9% INJ 10 ML SYR IV ×3 (05:17→21:35)
[2017-05-22] MEDS: SLF 3 ML SYR IV ×3 (05:17→21:35)
[2017-05-22] MEDS: HumaLOG INSULIN (NovoLOG) PER UNIT SC ×4 (05:39→23:56)
[2017-05-22 05:40] LABS: BEDSIDE GLUCOSE 182 MG/DL (70-105)
[2017-05-22 05:43] LABS: ABG BASE EXCESS -2.8 (-2.0-2.0); ABG HCO3 20.8 MEQ/L (22.0-26.0); ABG O2 SATURATION 94.4 % (95.0-99.0); ABG PARTIAL PRESSURE CO2 31.4 mmHg (35.0-45.0); ABG PARTIAL PRESSURE O2 70.7 mmHg (75.0-100.0); ABG TOTAL CO2 21.8 MEQ/L (22.0-29.0)
[2017-05-22] MEDS: KCL 20MEQ IN 100ML SWI (KRUN) 20 MEQ in APPROPRIATE DILUENT 1 EA IV (08:21)
[2017-05-22] MEDS: PANTOPRAZOLE 40MG INJ (PROTONIX) (C9113) IV (08:28)
[2017-05-22] MEDS: BUDESONIDE 0.5 MG/2 ML INHALATION SUSPENSION INH ×2 (08:41→18:12)
[2017-05-22] MEDS: DOCUSATE SODIUM 100 MG CAP PO ×2 (08:53→21:00)
[2017-05-22] MEDS: SENOKOT S TAB PO ×2 (08:53→21:00)
[2017-05-22] MEDS: CHLORHEXIDINE ORAL RINSE 0.12%/15ML 120ML BOTTLE MT ×2 (09:36→21:27)
[2017-05-22] MEDS: POTASSIUM PHOSPHATE INJ 15 MMOL in D5W 250 ML IV (09:38)
[2017-05-22] MEDS: D5W 1,000 ML IV (11:57)
[2017-05-22 12:01] LABS: BEDSIDE GLUCOSE 149 MG/DL (70-105)
[2017-05-22 17:46] LABS: BEDSIDE GLUCOSE 127 MG/DL (70-105)
[2017-05-22] MEDS: FAT EMULSION IV 20% 500 ML IV (17:49)
[2017-05-22] MEDS: [UNRECOGNIZED DRUG - OTHER] IV (17:50)
[2017-05-22] MEDS: POTASSIUM PHOSPHATE IV (17:50)
[2017-05-22] MEDS: POTASSIUM CHLORIDE IV (17:50)
[2017-05-22] MEDS: MORPHINE 4 MG/ML 1ML VIAL/SYRINGE (J2270) IV (23:34)
[2017-05-22 23:58] LABS: BEDSIDE GLUCOSE 146 MG/DL (70-105)
[2017-05-23] MEDS: PROPOFOL 1,000 MG in APPROPRIATE DILUENT 1 EA IV ×10 (00:38→22:35)
[2017-05-23] MEDS: MORPHINE 4 MG/ML 1ML VIAL/SYRINGE (J2270) IV ×2 (02:37→07:40)
[2017-05-23] MEDS: ALBUTEROL SULFATE 2.5 MG/0.5 ML INH NEB SOLN NEB ×6 (03:04→23:49)
[2017-05-23] MEDS: MIDAZOLAM INJ 2 MG/2 ML VIAL (J2250) IV ×5 (03:28→16:23)
[2017-05-23] MEDS: METOPROLOL 5 MG/5 ML VIAL IV ×4 (03:29→22:16)
[2017-05-23] MEDS: VANCOMYCIN HCL 1,000 MG, VIAL MATE ADAPTER 1 EACH in D5W 250 ML IV ×3 (05:16→20:51)
[2017-05-23 05:29] LABS: HEMATOCRIT 27.1 % (42.0-52.0); HEMOGLOBIN 8.7 g/dl (14.0-18.0); MEAN CORPUSCULAR HEMOGLOBIN 31.4 pg (27.0-33.0); MEAN CORPUSCULAR HGB CONC 32.1 g/dl (32.0-36.5); MEAN CORPUSCULAR VOLUME 97.8 fl (80.0-96.0); PLATELET COUNT, AUTOMATED 162 10^3/uL (150-450); RED BLOOD COUNT 2.77 10^6/uL (4.30-6.10); RED CELL DISTRIBUTION WIDTH 15.9 % (11.5-14.5); WHITE BLOOD COUNT 14.5 10^3/uL (4.0-10.0)
[2017-05-23 05:35] LABS: ABG BASE EXCESS -3.3 (-2.0-2.0); ABG HCO3 20.1 MEQ/L (22.0-26.0); ABG O2 SATURATION 92.3 % (95.0-99.0); ABG PARTIAL PRESSURE CO2 30.2 mmHg (35.0-45.0); ABG PARTIAL PRESSURE O2 65.3 mmHg (75.0-100.0); ABG STANDARD HCO3 21.7 MEQ/L (22.0-26.0); ABG TOTAL CO2 21.1 MEQ/L (22.0-29.0); ABG pH (ARTERIAL) 7.442 UNITS (7.350-7.450)
[2017-05-23 05:40] LABS: INR 1.16; PARTIAL THROMBOPLASTIN TIME 32.2 SECONDS (26.8-37.9)
[2017-05-23 05:49] LABS: ANION GAP 9 MEQ/L (8-16); BLOOD UREA NITROGEN 23 MG/DL (7-18); CALCIUM LEVEL 7.5 MG/DL (8.5-10.1); CARBON DIOXIDE LEVEL 23 MEQ/L (21-32); CHLORIDE LEVEL 116 MEQ/L (98-107); CREATININE FOR GFR 1.28 MG/DL (0.70-1.30); GLOMERULAR FILTRATION RATE > 60.0 (>60); GLUCOSE, FASTING 136 MG/DL (70-100); MAGNESIUM LEVEL 2.1 MG/DL (1.8-2.4); PHOSPHORUS LEVEL 3.9 MG/DL (2.5-4.9); POTASSIUM SERUM 3.8 MEQ/L (3.5-5.1); SODIUM LEVEL 148 MEQ/L (136-145)
[2017-05-23] MEDS: SODIUM CHLORIDE 0.9% INJ 10 ML SYR IV ×3 (06:00→22:17)
[2017-05-23] MEDS: HumaLOG INSULIN (NovoLOG) PER UNIT SC ×3 (06:26→17:09)
[2017-05-23] MEDS: HEPARIN SOD (PORCINE) 5000 UNITS/ML VIAL SQ ×3 (06:27→22:16)
[2017-05-23] MEDS: SLF 3 ML SYR IV ×3 (06:27→22:16)
[2017-05-23] MEDS: PIPERACILLIN/TAZOBACTAM SOD 3.375 GM in APPROPRIATE DILUENT 1 EA IV ×3 (06:28→17:09)
[2017-05-23] MEDS: BUDESONIDE 0.5 MG/2 ML INHALATION SUSPENSION INH ×2 (08:42→19:46)
[2017-05-23] MEDS: CHLORHEXIDINE ORAL RINSE 0.12%/15ML 120ML BOTTLE MT ×2 (09:13→20:51)
[2017-05-23] MEDS: PANTOPRAZOLE 40MG INJ (PROTONIX) (C9113) IV (09:13)
[2017-05-23] MEDS: SENOKOT S TAB PO (09:14)
[2017-05-23] MEDS: DOCUSATE SODIUM 100 MG CAP PO (09:14)
[2017-05-23] MEDS: ACETAMINOPHEN 325 MG/10.15 ML UDC GT ×2 (09:52→16:23)
[2017-05-23 10:19] LABS: LACTIC ACID SEPSIS PROTOCOL 0.9 MMOL/L (0.4-2.0)
[2017-05-23] MEDS: FLUCONAZOLE 200 MG in APPROPRIATE DILUENT 1 EA IV (11:32)
[2017-05-23 11:59] LABS: AMORPHOUS SEDIMENT MODERATE (NEGATIVE); APPEARANCE, URINE CLOUDY (CLEAR); BACTERIA, URINE AUTO NEGATIVE (NEGATIVE); BILIRUBIN, URINE AUTO NEGATIVE (NEGATIVE); BLOOD, URINE BLOOD 2+ (NEGATIVE); COLOR, URINE AMBER (YELLOW); GLUCOSE, URINE (UA) AUTO NEGATIVE (NEGATIVE); KETONE, URINE AUTO NEGATIVE (NEGATIVE); LEUKOCYTE ESTERASE, URINE AUTO NEGATIVE (NEGATIVE); MUCUS, URINE SMALL (NEGATIVE); NITRITE, URINE AUTO NEGATIVE (NEGATIVE); PROTEIN, URINE AUTO 2+ mg/dL (NEGATIVE); RBC, URINE AUTO 118 /HPF (0-3); SQUAMOUS EPITHELIAL CELL UR AU 0 /HPF (0-6); UROBILINOGEN, URINE AUTO 0.2 mg/dL (0.0-2.0); WBC, URINE AUTO 10 /HPF (0-3)
[2017-05-23 12:08] LABS: BEDSIDE GLUCOSE 157 MG/DL (70-105)
[2017-05-23 12:26] LABS: VANCOMYCIN LEVEL TROUGH 16.7 UG/ML (10.0-20.0)
[2017-05-23 17:02] LABS: ALBUMIN 2.1 GM/DL (3.2-5.2); ALBUMIN/GLOBULIN RATIO 0.55 (1.00-1.93); ALKALINE PHOSPHATASE 58 U/L (45-117); ALT/SGPT 90 U/L (12-78); AST/SGOT 128 U/L (7-37); BILIRUBIN,TOTAL 1.4 MG/DL (0.2-1.0); TOTAL PROTEIN 5.9 GM/DL (6.4-8.2)
[2017-05-23 17:14] LABS: BEDSIDE GLUCOSE 166 MG/DL (70-105)
[2017-05-23] MEDS ORDERED: SODIUM PHOSPHATE IV (18:00)
[2017-05-23] MEDS ORDERED: [UNRECOGNIZED DRUG - OTHER] IV (18:00)
[2017-05-23] MEDS ORDERED: FAT EMULSION IV 20% 500 ML IV (18:00)
[2017-05-23] MEDS ORDERED: POTASSIUM CHLORIDE IV (18:00)
[2017-05-24 00:01] LABS: BEDSIDE GLUCOSE 113 MG/DL (70-105)
[2017-05-24] MEDS: HumaLOG INSULIN (NovoLOG) PER UNIT SC ×3 (00:31→11:11)
[2017-05-24] MEDS: PIPERACILLIN/TAZOBACTAM SOD 3.375 GM in APPROPRIATE DILUENT 1 EA IV ×4 (00:31→17:21)
[2017-05-24] MEDS: MORPHINE 4 MG/ML 1ML VIAL/SYRINGE (J2270) IV (00:56)
[2017-05-24] MEDS: PROPOFOL 1,000 MG in APPROPRIATE DILUENT 1 EA IV ×11 (01:03→22:29)
[2017-05-24] MEDS: MIDAZOLAM INJ 2 MG/2 ML VIAL (J2250) IV ×2 (02:05→11:41)
[2017-05-24] MEDS: ALBUTEROL SULFATE 2.5 MG/0.5 ML INH NEB SOLN NEB ×6 (03:37→23:38)
[2017-05-24] MEDS: METOPROLOL 5 MG/5 ML VIAL IV ×4 (04:06→21:14)
[2017-05-24] MEDS: VANCOMYCIN HCL 1,000 MG, VIAL MATE ADAPTER 1 EACH in D5W 250 ML IV ×2 (04:21→16:05)
[2017-05-24] MEDS: ACETAMINOPHEN 325 MG/10.15 ML UDC GT ×4 (04:21→20:05)
[2017-05-24 05:20] LABS: HEMATOCRIT 29.2 % (42.0-52.0); HEMOGLOBIN 9.4 g/dl (14.0-18.0); MEAN CORPUSCULAR HEMOGLOBIN 31.3 pg (27.0-33.0); MEAN CORPUSCULAR HGB CONC 32.2 g/dl (32.0-36.5); MEAN CORPUSCULAR VOLUME 97.3 fl (80.0-96.0); PLATELET COUNT, AUTOMATED 190 10^3/uL (150-450); RED CELL DISTRIBUTION WIDTH 16.1 % (11.5-14.5); WHITE BLOOD COUNT 16.7 10^3/uL (4.0-10.0)
[2017-05-24 05:30] LABS: INR 1.17; PROTHROMBIN TIME 15.1 SECONDS (12.4-14.5)
[2017-05-24 05:31] LABS: PARTIAL THROMBOPLASTIN TIME 34.1 SECONDS (26.8-37.9)
[2017-05-24 05:37] LABS: ANION GAP 10 MEQ/L (8-16); BLOOD UREA NITROGEN 25 MG/DL (7-18); CALCIUM LEVEL 7.9 MG/DL (8.5-10.1); CARBON DIOXIDE LEVEL 22 MEQ/L (21-32); CHLORIDE LEVEL 116 MEQ/L (98-107); CREATININE FOR GFR 1.52 MG/DL (0.70-1.30); GLOMERULAR FILTRATION RATE 52.4 (>60); GLUCOSE, FASTING 114 MG/DL (70-100); MAGNESIUM LEVEL 2.3 MG/DL (1.8-2.4); PHOSPHORUS LEVEL 3.5 MG/DL (2.5-4.9); POTASSIUM SERUM 4.1 MEQ/L (3.5-5.1); SODIUM LEVEL 148 MEQ/L (136-145)
[2017-05-24 05:47] LABS: ABG BASE EXCESS -2.9 (-2.0-2.0); ABG HCO3 20.6 MEQ/L (22.0-26.0); ABG O2 SATURATION 92.9 % (95.0-99.0); ABG PARTIAL PRESSURE CO2 31.2 mmHg (35.0-45.0); ABG PARTIAL PRESSURE O2 67.1 mmHg (75.0-100.0); ABG TOTAL CO2 21.6 MEQ/L (22.0-29.0); ABG pH (ARTERIAL) 7.438 UNITS (7.350-7.450)
[2017-05-24] MEDS: SODIUM CHLORIDE 0.9% INJ 10 ML SYR IV ×4 (05:56→21:14)
[2017-05-24] MEDS: SLF 3 ML SYR IV ×3 (05:56→21:14)
[2017-05-24] MEDS: HEPARIN SOD (PORCINE) 5000 UNITS/ML VIAL SQ ×3 (05:56→21:13)
[2017-05-24] MEDS: CHLORHEXIDINE ORAL RINSE 0.12%/15ML 120ML BOTTLE MT ×2 (08:08→20:04)
[2017-05-24] MEDS: BUDESONIDE 0.5 MG/2 ML INHALATION SUSPENSION INH ×2 (08:47→19:43)
[2017-05-24] MEDS: PANTOPRAZOLE 40MG INJ (PROTONIX) (C9113) IV (09:07)
[2017-05-24] MEDS: SENOKOT S TAB PO (09:11)
[2017-05-24 11:16] LABS: BEDSIDE GLUCOSE 126 MG/DL (70-105)
[2017-05-24] MEDS ORDERED: LIDOCAINE 1% MDV 20ML VIAL As Ordered (11:31)
[2017-05-24 13:24] LABS: VANCOMYCIN LEVEL TROUGH 18.5 UG/ML (10.0-20.0)
[2017-05-24 14:45] LABS: ALBUMIN/GLOBULIN RATIO 0.48 (1.00-1.93); ALKALINE PHOSPHATASE 59 U/L (45-117); ALT/SGPT 82 U/L (12-78); AST/SGOT 110 U/L (7-37); BILIRUBIN,TOTAL 1.3 MG/DL (0.2-1.0); CHOLESTEROL LEVEL 160 MG/DL (< 200); CPK CREATINE PHOSPHOKINASE 2920 U/L (39-308); LDH LACTATE DEHYDROGENASE 430 U/L (87-241); TOTAL PROTEIN 6.2 GM/DL (6.4-8.2); TRIGLYCERIDES LEVEL 300 MG/DL (<150)
[2017-05-24] MEDS ORDERED: SODIUM CHLORIDE 0.9% INJ 10 ML SYR IV (14:45)
[2017-05-24 17:31] LABS: BEDSIDE GLUCOSE 138 MG/DL (70-105)
[2017-05-24] MEDS: IBUPROFEN 100 MG/5 ML SUSP UDC DYE FREE PO (21:15)
[2017-05-25] MEDS: METOPROLOL 5 MG/5 ML VIAL IV ×6 (00:21→21:35)
[2017-05-25] MEDS: PIPERACILLIN/TAZOBACTAM SOD 3.375 GM in APPROPRIATE DILUENT 1 EA IV ×4 (00:50→18:05)
[2017-05-25] MEDS: PROPOFOL 1,000 MG in APPROPRIATE DILUENT 1 EA IV ×8 (00:51→22:49)
[2017-05-25] MEDS: NS 1,000 ML IV (01:55)
[2017-05-25] MEDS ORDERED: FUROSEMIDE 40 MG/4 ML VIAL (J1940) As Ordered (02:43)
[2017-05-25] MEDS: FUROSEMIDE 40 MG/4 ML VIAL (J1940) IV (02:55)
[2017-05-25] MEDS: MIDAZOLAM INJ 2 MG/2 ML VIAL (J2250) IV (03:01)
[2017-05-25] MEDS ORDERED: LIDOCAINE 1% MDV 20ML VIAL As Ordered (03:17)
[2017-05-25] MEDS ORDERED: ROCURONIUM BROMIDE 50 MG/5 ML VIAL As Ordered (03:30)
[2017-05-25] MEDS ORDERED: VECURONIUM BROMIDE 10 MG VIAL As Ordered (03:47)
[2017-05-25 03:56] LABS: ABG BASE EXCESS -6.4 (-2.0-2.0); ABG HCO3 18.7 MEQ/L (22.0-26.0); ABG O2 SATURATION 95.5 % (95.0-99.0); ABG PARTIAL PRESSURE O2 88.7 mmHg (75.0-100.0); ABG STANDARD HCO3 19.2 MEQ/L (22.0-26.0); ABG TOTAL CO2 19.8 MEQ/L (22.0-29.0); ABG pH (ARTERIAL) 7.334 UNITS (7.350-7.450)
[2017-05-25] MEDS: ALBUTEROL SULFATE 2.5 MG/0.5 ML INH NEB SOLN NEB ×6 (04:00→23:36)
[2017-05-25] MEDS: VECURONIUM BROMIDE 50 MG in D5W 50 ML IV ×4 (04:43→21:25)
[2017-05-25] MEDS: VECURONIUM BROMIDE 10 MG VIAL IV (04:45)
[2017-05-25] MEDS: VANCOMYCIN HCL 1,000 MG, VIAL MATE ADAPTER 1 EACH in D5W 250 ML IV ×2 (05:21→17:37)
[2017-05-25] MEDS: diltiaZEM 125 MG in NS 100 ML IV ×2 (05:41→19:59)
[2017-05-25 05:57] LABS: MEAN CORPUSCULAR HEMOGLOBIN 30.7 pg (27.0-33.0); MEAN CORPUSCULAR HGB CONC 30.3 g/dl (32.0-36.5); MEAN CORPUSCULAR VOLUME 101.2 fl (80.0-96.0); PLATELET COUNT, AUTOMATED 225 10^3/uL (150-450); RED BLOOD COUNT 3.26 10^6/uL (4.30-6.10); WHITE BLOOD COUNT 19.9 10^3/uL (4.0-10.0)
[2017-05-25] MEDS: SODIUM CHLORIDE 0.9% INJ 10 ML SYR IV ×5 (06:00→21:26)
[2017-05-25] MEDS: SLF 3 ML SYR IV ×3 (06:00→21:26)
[2017-05-25 06:03] LABS: ABG BASE EXCESS -6.8 (-2.0-2.0); ABG HCO3 19.8 MEQ/L (22.0-26.0); ABG O2 SATURATION 93.8 % (95.0-99.0); ABG PARTIAL PRESSURE CO2 44.2 mmHg (35.0-45.0); ABG PARTIAL PRESSURE O2 81.3 mmHg (75.0-100.0); ABG STANDARD HCO3 18.8 MEQ/L (22.0-26.0); ABG TOTAL CO2 21.2 MEQ/L (22.0-29.0); ABG pH (ARTERIAL) 7.269 UNITS (7.350-7.450)
[2017-05-25 06:08] LABS: INR 1.14; PROTHROMBIN TIME 14.8 SECONDS (12.4-14.5)
[2017-05-25 06:09] LABS: PARTIAL THROMBOPLASTIN TIME 33.2 SECONDS (26.8-37.9)
[2017-05-25 06:15] LABS: ANION GAP 11 MEQ/L (8-16); BLOOD UREA NITROGEN 40 MG/DL (7-18); CALCIUM LEVEL 7.4 MG/DL (8.5-10.1); CARBON DIOXIDE LEVEL 20 MEQ/L (21-32); CHLORIDE LEVEL 117 MEQ/L (98-107); CREATININE FOR GFR 2.22 MG/DL (0.70-1.30); GLOMERULAR FILTRATION RATE 33.8 (>60); GLUCOSE, FASTING 123 MG/DL (70-100); MAGNESIUM LEVEL 2.6 MG/DL (1.8-2.4); PHOSPHORUS LEVEL 6.2 MG/DL (2.5-4.9); SODIUM LEVEL 148 MEQ/L (136-145)
[2017-05-25] MEDS: HEPARIN SOD (PORCINE) 5000 UNITS/ML VIAL SQ ×3 (06:46→21:26)
[2017-05-25] MEDS: ROCURONIUM BROMIDE 50 MG/5 ML VIAL IV (06:50)
[2017-05-25] MEDS: BUDESONIDE 0.5 MG/2 ML INHALATION SUSPENSION INH ×2 (08:00→19:45)
[2017-05-25] MEDS: SENOKOT S TAB PO (09:00)
[2017-05-25] MEDS: CHLORHEXIDINE ORAL RINSE 0.12%/15ML 120ML BOTTLE MT ×2 (09:36→20:39)
[2017-05-25] MEDS: PANTOPRAZOLE 40MG INJ (PROTONIX) (C9113) IV (10:03)
[2017-05-25 10:35] LABS: VANCOMYCIN LEVEL TROUGH 23.3 UG/ML (10.0-20.0)
[2017-05-25 10:38] LABS: HEPATITIS B SURFACE ANTIGEN NEGATIVE (NEGATIVE)
[2017-05-25 10:38] LABS: HEPATITIS C VIRUS ABY INDEX 0.1 INDEX (<0.8)
[2017-05-25 10:41] LABS: HIV 1&2 SCREEN CENTAUR NEGATIVE (NEGATIVE)
[2017-05-25] MEDS: D5W 1,000 ML IV ×2 (11:15→22:49)
[2017-05-25] MEDS: ACETAMINOPHEN 325 MG/10.15 ML UDC GT (11:18)
[2017-05-25] MEDS ORDERED: LIDOCAINE W/EPINEPHRINE 1% 20ML VIAL As Ordered (12:25)
[2017-05-25] MEDS: MORPHINE 4 MG/ML 1ML VIAL/SYRINGE (J2270) IV (13:30)
[2017-05-25 14:36] LABS: ABG BASE EXCESS -5.9 (-2.0-2.0); ABG HCO3 21.5 MEQ/L (22.0-26.0); ABG O2 SATURATION 91.1 % (95.0-99.0); ABG PARTIAL PRESSURE CO2 50.7 mmHg (35.0-45.0); ABG PARTIAL PRESSURE O2 69.3 mmHg (75.0-100.0); ABG STANDARD HCO3 19.5 MEQ/L (22.0-26.0)
[2017-05-25 14:37] LABS: ABG pH (ARTERIAL) 7.245 UNITS (7.350-7.450)
[2017-05-25 18:07] LABS: ABG BASE EXCESS -5.9 (-2.0-2.0); ABG HCO3 20.8 MEQ/L (22.0-26.0); ABG O2 SATURATION 94.3 % (95.0-99.0); ABG PARTIAL PRESSURE CO2 46.1 mmHg (35.0-45.0); ABG PARTIAL PRESSURE O2 77.9 mmHg (75.0-100.0); ABG STANDARD HCO3 19.5 MEQ/L (22.0-26.0); ABG TOTAL CO2 22.2 MEQ/L (22.0-29.0); ABG pH (ARTERIAL) 7.272 UNITS (7.350-7.450)
[2017-05-26] MEDS: PIPERACILLIN/TAZOBACTAM SOD 3.375 GM in APPROPRIATE DILUENT 1 EA IV ×5 (00:45→23:08)
[2017-05-26] MEDS: PROPOFOL 1,000 MG in APPROPRIATE DILUENT 1 EA IV ×4 (01:12→08:17)
[2017-05-26] MEDS: METOPROLOL 5 MG/5 ML VIAL IV ×4 (03:36→21:02)
[2017-05-26] MEDS: ALBUTEROL SULFATE 2.5 MG/0.5 ML INH NEB SOLN NEB ×6 (04:11→23:36)
[2017-05-26] MEDS: VANCOMYCIN HCL 1,000 MG, VIAL MATE ADAPTER 1 EACH in D5W 250 ML IV ×2 (05:27→23:51)
[2017-05-26] MEDS: HEPARIN SOD (PORCINE) 5000 UNITS/ML VIAL SQ ×3 (05:28→21:02)
[2017-05-26] MEDS: SLF 3 ML SYR IV ×3 (05:38→21:03)
[2017-05-26] MEDS: SODIUM CHLORIDE 0.9% INJ 10 ML SYR IV ×5 (05:38→21:03)
[2017-05-26] MEDS: VECURONIUM BROMIDE 50 MG in D5W 50 ML IV (05:43)
[2017-05-26 05:53] LABS: INR 1.18; PROTHROMBIN TIME 15.2 SECONDS (12.4-14.5)
[2017-05-26 05:54] LABS: PARTIAL THROMBOPLASTIN TIME 30.7 SECONDS (26.8-37.9)
[2017-05-26 06:01] LABS: ABG BASE EXCESS -7.3 (-2.0-2.0); ABG HCO3 19.6 MEQ/L (22.0-26.0); ABG O2 SATURATION 92.2 % (95.0-99.0); ABG PARTIAL PRESSURE CO2 45.8 mmHg (35.0-45.0); ABG PARTIAL PRESSURE O2 70.3 mmHg (75.0-100.0); ABG STANDARD HCO3 18.4 MEQ/L (22.0-26.0)
[2017-05-26 06:22] LABS: ANION GAP 10 MEQ/L (8-16); BLOOD UREA NITROGEN 53 MG/DL (7-18); CALCIUM LEVEL 7.3 MG/DL (8.5-10.1); CARBON DIOXIDE LEVEL 23 MEQ/L (21-32); CHLORIDE LEVEL 114 MEQ/L (98-107); CREATININE FOR GFR 2.78 MG/DL (0.70-1.30); GLOMERULAR FILTRATION RATE 26.1 (>60); GLUCOSE, FASTING 148 MG/DL (70-100); MAGNESIUM LEVEL 2.9 MG/DL (1.8-2.4); PHOSPHORUS LEVEL 6.5 MG/DL (2.5-4.9); POTASSIUM SERUM 5.1 MEQ/L (3.5-5.1); SODIUM LEVEL 147 MEQ/L (136-145)
[2017-05-26] MEDS: SENOKOT S TAB PO (07:33)
[2017-05-26] MEDS: D5W 1,000 ML IV ×2 (08:37→18:19)
[2017-05-26] MEDS: CHLORHEXIDINE ORAL RINSE 0.12%/15ML 120ML BOTTLE MT ×2 (08:37→21:02)
[2017-05-26] MEDS: PANTOPRAZOLE 40MG INJ (PROTONIX) (C9113) IV (08:37)
[2017-05-26] MEDS: BUDESONIDE 0.5 MG/2 ML INHALATION SUSPENSION INH ×2 (11:29→19:38)
[2017-05-26] MEDS: diltiaZEM 125 MG in NS 100 ML IV ×2 (14:40→17:56)
[2017-05-26] MEDS: ACETAMINOPHEN 325 MG/10.15 ML UDC GT (15:07)
[2017-05-26 19:03] LABS: VANCOMYCIN LEVEL TROUGH 22.2 UG/ML (10.0-20.0)
[2017-05-26] MEDS: MORPHINE 4 MG/ML 1ML VIAL/SYRINGE (J2270) IV (22:30)
[2017-05-26] MEDS: MIDAZOLAM INJ 2 MG/2 ML VIAL (J2250) IV ×2 (23:33→23:53)
[2017-05-27] MEDS: MIDAZOLAM INJ 2 MG/2 ML VIAL (J2250) IV ×5 (01:28→15:12)
[2017-05-27] MEDS: D5W 1,000 ML IV ×3 (03:06→23:43)
[2017-05-27] MEDS: METOPROLOL 5 MG/5 ML VIAL IV ×3 (03:07→19:21)
[2017-05-27] MEDS: ALBUTEROL SULFATE 2.5 MG/0.5 ML INH NEB SOLN NEB ×6 (03:37→23:52)
[2017-05-27 05:46] LABS: INR 1.08; PROTHROMBIN TIME 14.2 SECONDS (12.4-14.5)
[2017-05-27 05:47] LABS: PARTIAL THROMBOPLASTIN TIME 24.7 SECONDS (26.8-37.9)
[2017-05-27] MEDS: diltiaZEM 125 MG in NS 100 ML IV (05:55)
[2017-05-27 05:57] LABS: ANION GAP 10 MEQ/L (8-16); BLOOD UREA NITROGEN 71 MG/DL (7-18); CALCIUM LEVEL 7.2 MG/DL (8.5-10.1); CARBON DIOXIDE LEVEL 21 MEQ/L (21-32); CHLORIDE LEVEL 116 MEQ/L (98-107); GLOMERULAR FILTRATION RATE 20.7 (>60); GLUCOSE, FASTING 158 MG/DL (70-100); MAGNESIUM LEVEL 2.9 MG/DL (1.8-2.4); PHOSPHORUS LEVEL 1.9 MG/DL (2.5-4.9); POTASSIUM SERUM 3.5 MEQ/L (3.5-5.1); SODIUM LEVEL 147 MEQ/L (136-145)
[2017-05-27] MEDS: SODIUM CHLORIDE 0.9% INJ 10 ML SYR IV ×5 (06:00→21:15)
[2017-05-27] MEDS: SLF 3 ML SYR IV ×3 (06:00→21:15)
[2017-05-27] MEDS: HEPARIN SOD (PORCINE) 5000 UNITS/ML VIAL SQ ×3 (06:12→21:15)
[2017-05-27 06:21] LABS: ABG BASE EXCESS -5.7 (-2.0-2.0); ABG HCO3 17.9 MEQ/L (22.0-26.0); ABG O2 SATURATION 96.3 % (95.0-99.0); ABG PARTIAL PRESSURE CO2 29.2 mmHg (35.0-45.0); ABG PARTIAL PRESSURE O2 85.5 mmHg (75.0-100.0); ABG STANDARD HCO3 19.7 MEQ/L (22.0-26.0); ABG TOTAL CO2 18.8 MEQ/L (22.0-29.0); ABG pH (ARTERIAL) 7.406 UNITS (7.350-7.450)
[2017-05-27] MEDS: ACETAMINOPHEN 325 MG/10.15 ML UDC GT ×2 (07:21→19:31)
[2017-05-27] MEDS: MORPHINE 4 MG/ML 1ML VIAL/SYRINGE (J2270) IV (07:38)
[2017-05-27] MEDS: BUDESONIDE 0.5 MG/2 ML INHALATION SUSPENSION INH ×2 (08:06→20:09)
[2017-05-27] MEDS: PANTOPRAZOLE 40MG INJ (PROTONIX) (C9113) IV (08:19)
[2017-05-27] MEDS: CHLORHEXIDINE ORAL RINSE 0.12%/15ML 120ML BOTTLE MT ×2 (08:20→21:14)
[2017-05-27] MEDS: SENOKOT S TAB PO (08:20)
[2017-05-27] MEDS ORDERED: IBUPROFEN 800 MG TAB As Ordered (08:28)
[2017-05-27] MEDS: IBUPROFEN 800 MG TAB PO (08:44)
[2017-05-27] MEDS ORDERED: LIDOCAINE 1% MDV 20ML VIAL As Ordered (08:49)
[2017-05-27] MEDS: LIDOCAINE 1% MDV 20ML VIAL SC (09:10)
[2017-05-27] MEDS: NS 1,000 ML IV (09:33)
[2017-05-27] MEDS: PROPOFOL 1,000 MG in APPROPRIATE DILUENT 1 EA IV (10:54)
[2017-05-27] MEDS: OXAZEPAM 15 MG CAP PO ×3 (13:12→23:43)
[2017-05-27 20:41] LABS: VANCOMYCIN LEVEL TROUGH 21.8 UG/ML (10.0-20.0)
[2017-05-27] MEDS: NEBIVOLOL 5 MG TAB (BYSTOLIC) PO (21:15)
[2017-05-28] MEDS: METOPROLOL 5 MG/5 ML VIAL IV ×4 (02:09→19:35)
[2017-05-28] MEDS: ALBUTEROL SULFATE 2.5 MG/0.5 ML INH NEB SOLN NEB ×5 (03:30→21:47)
[2017-05-28] MEDS: MORPHINE 4 MG/ML 1ML VIAL/SYRINGE (J2270) IV ×3 (04:33→23:27)
[2017-05-28] MEDS: OXAZEPAM 15 MG CAP PO ×4 (05:06→23:26)
[2017-05-28] MEDS: HEPARIN SOD (PORCINE) 5000 UNITS/ML VIAL SQ ×3 (05:07→21:06)
[2017-05-28] MEDS: SLF 3 ML SYR IV ×2 (05:07→14:00)
[2017-05-28] MEDS: SODIUM CHLORIDE 0.9% INJ 10 ML SYR IV ×4 (05:08→17:56)
[2017-05-28] MEDS: ACETAMINOPHEN 325 MG/10.15 ML UDC GT (05:12)
[2017-05-28 05:13] LABS: INR 1.15; PROTHROMBIN TIME 14.9 SECONDS (12.4-14.5)
[2017-05-28 05:14] LABS: PARTIAL THROMBOPLASTIN TIME 30.3 SECONDS (26.8-37.9)
[2017-05-28 05:32] LABS: ANION GAP 10 MEQ/L (8-16); BLOOD UREA NITROGEN 87 MG/DL (7-18); CALCIUM LEVEL 7.4 MG/DL (8.5-10.1); CARBON DIOXIDE LEVEL 20 MEQ/L (21-32); CHLORIDE LEVEL 116 MEQ/L (98-107); CREATININE FOR GFR 4.07 MG/DL (0.70-1.30); GLOMERULAR FILTRATION RATE 16.8 (>60); GLUCOSE, FASTING 145 MG/DL (70-100); MAGNESIUM LEVEL 3.3 MG/DL (1.8-2.4); POTASSIUM SERUM 3.3 MEQ/L (3.5-5.1); SODIUM LEVEL 146 MEQ/L (136-145)
[2017-05-28 06:16] LABS: ABG BASE EXCESS -5.7 (-2.0-2.0); ABG HCO3 18.1 MEQ/L (22.0-26.0); ABG O2 SATURATION 97.4 % (95.0-99.0); ABG PARTIAL PRESSURE CO2 30.1 mmHg (35.0-45.0); ABG PARTIAL PRESSURE O2 94.1 mmHg (75.0-100.0); ABG STANDARD HCO3 19.7 MEQ/L (22.0-26.0); ABG TOTAL CO2 19.1 MEQ/L (22.0-29.0); ABG pH (ARTERIAL) 7.398 UNITS (7.350-7.450)
[2017-05-28] MEDS: BUDESONIDE 0.5 MG/2 ML INHALATION SUSPENSION INH ×2 (07:59→21:47)
[2017-05-28] MEDS: POTASSIUM CHLORIDE 10% LIQ 20 MEQ/15 ML UDC NG (08:10)
[2017-05-28] MEDS: KCL 20MEQ IN D5W 1000ML 1,000 ML IV ×2 (08:43→17:58)
[2017-05-28] MEDS: SENOKOT S TAB PO (09:00)
[2017-05-28] MEDS: VANCOMYCIN HCL 1,000 MG, VIAL MATE ADAPTER 1 EACH in D5W 250 ML IV (09:40)
[2017-05-28] MEDS: PANTOPRAZOLE 40MG INJ (PROTONIX) (C9113) IV (09:40)
[2017-05-28] MEDS: NEBIVOLOL 5 MG TAB (BYSTOLIC) PO ×2 (09:41→21:06)
[2017-05-28] MEDS: CHLORHEXIDINE ORAL RINSE 0.12%/15ML 120ML BOTTLE MT ×2 (09:42→21:06)
[2017-05-28 11:34] LABS: BASO # 0.1 10^3/uL (0.0-0.2); BASO % 0.4 % (0.0-1.0); EOS # 1.3 10^3/uL (0.0-0.50); EOS % 5.6 % (0.0-3.0); HEMATOCRIT 29.3 % (42.0-52.0); HEMOGLOBIN 9.3 g/dl (14.0-18.0); IMMATURE GRANULOCYTE % 4.9 % (0-3.0); LYMPH % 8.8 % (24.0-44.0); MEAN CORPUSCULAR HEMOGLOBIN 30.7 pg (27.0-33.0); MEAN CORPUSCULAR HGB CONC 31.7 g/dl (32.0-36.5); MEAN CORPUSCULAR VOLUME 96.7 fl (80.0-96.0); MONO # 1.2 10^3/uL (0.0-0.8); MONO % 5.2 % (0.0-5.0); NEUTROPHILS # 17.1 10^3/uL (1.8-7.7); NEUTROPHILS % 75.1 % (36.0-66.0); PLATELET COUNT, AUTOMATED 235 10^3/uL (150-450); RED BLOOD COUNT 3.03 10^6/uL (4.30-6.10); RED CELL DISTRIBUTION WIDTH 15.9 % (11.5-14.5); WHITE BLOOD COUNT 22.7 10^3/uL (4.0-10.0)
[2017-05-28] MEDS: CETIRIZINE (ZyrTEC) 5 MG/5 ML UDC DYE FREE NG (17:56)
[2017-05-29] MEDS: ALBUTEROL SULFATE 2.5 MG/0.5 ML INH NEB SOLN NEB ×7 (00:06→23:31)
[2017-05-29] MEDS: METOPROLOL 5 MG/5 ML VIAL IV ×3 (02:15→13:32)
[2017-05-29] MEDS: KCL 20MEQ IN D5W 1000ML 1,000 ML IV ×2 (03:16→13:27)
[2017-05-29] MEDS: HEPARIN SOD (PORCINE) 5000 UNITS/ML VIAL SQ ×3 (05:16→21:26)
[2017-05-29] MEDS: SODIUM CHLORIDE 0.9% INJ 10 ML SYR IV ×2 (05:17→18:03)
[2017-05-29] MEDS: OXAZEPAM 15 MG CAP PO ×3 (05:17→21:26)
[2017-05-29 05:46] LABS: HEMATOCRIT 27.6 % (42.0-52.0); HEMOGLOBIN 8.7 g/dl (14.0-18.0); MEAN CORPUSCULAR HGB CONC 31.5 g/dl (32.0-36.5); MEAN CORPUSCULAR VOLUME 98.2 fl (80.0-96.0); PLATELET COUNT, AUTOMATED 243 10^3/uL (150-450); RED BLOOD COUNT 2.81 10^6/uL (4.30-6.10); RED CELL DISTRIBUTION WIDTH 15.9 % (11.5-14.5); WHITE BLOOD COUNT 21.4 10^3/uL (4.0-10.0)
[2017-05-29 05:47] LABS: ADD MANUAL DIFFER YES; DIFF SLIDE NUMBER 65; POS COUNT POS FLAG; POSITIVE MORPH POS FLAG
[2017-05-29 05:56] LABS: INR 1.08; PROTHROMBIN TIME 14.2 SECONDS (12.4-14.5)
[2017-05-29 05:57] LABS: ABG BASE EXCESS -7.1 (-2.0-2.0); ABG HCO3 17.6 MEQ/L (22.0-26.0); ABG O2 SATURATION 95.6 % (95.0-99.0); ABG PARTIAL PRESSURE CO2 32.7 mmHg (35.0-45.0); ABG PARTIAL PRESSURE O2 80.4 mmHg (75.0-100.0); ABG STANDARD HCO3 18.6 MEQ/L (22.0-26.0); ABG TOTAL CO2 18.7 MEQ/L (22.0-29.0); PARTIAL THROMBOPLASTIN TIME 29.1 SECONDS (26.8-37.9)
[2017-05-29 06:22] LABS: ALBUMIN 1.9 GM/DL (3.2-5.2); ALBUMIN/GLOBULIN RATIO 0.45 (1.00-1.93); ALKALINE PHOSPHATASE 70 U/L (45-117); ALT/SGPT 87 U/L (12-78); ANION GAP 9 MEQ/L (8-16); AST/SGOT 94 U/L (7-37); BILIRUBIN,TOTAL 0.8 MG/DL (0.2-1.0); BLOOD UREA NITROGEN 96 MG/DL (7-18); CALCIUM LEVEL 7.2 MG/DL (8.5-10.1); CARBON DIOXIDE LEVEL 21 MEQ/L (21-32); CHLORIDE LEVEL 116 MEQ/L (98-107); CHOLESTEROL LEVEL 128 MG/DL (< 200); CPK CREATINE PHOSPHOKINASE 1456 U/L (39-308); CREATININE FOR GFR 4.03 MG/DL (0.70-1.30); GLUCOSE, FASTING 139 MG/DL (70-100); LDH LACTATE DEHYDROGENASE 803 U/L (87-241); PHOSPHORUS LEVEL 3.2 MG/DL (2.5-4.9); POTASSIUM SERUM 3.6 MEQ/L (3.5-5.1); SODIUM LEVEL 146 MEQ/L (136-145); TOTAL PROTEIN 6.1 GM/DL (6.4-8.2); TRIGLYCERIDES LEVEL 278 MG/DL (<150)
[2017-05-29 06:37] LABS: ATYPICAL LYMPH 1 % (0-5); BANDS 1 % (< 11); EOSINOPHILS 4 % (0-5); LYMPHOCYTES 9 % (16-52); METAMYELOCYTES 1 % (0-0); MONOCYTES 1 % (0-8); MYELOCYTES 1 % (0-0); NEUTROPHILS 82 % (35-75)
[2017-05-29 06:39] LABS: PLATELET ESTIMATE NORMAL (NORMAL)
[2017-05-29 06:40] LABS: ANISOCYTOSIS 1+
[2017-05-29] MEDS: BUDESONIDE 0.5 MG/2 ML INHALATION SUSPENSION INH ×2 (07:58→19:35)
[2017-05-29] MEDS: PANTOPRAZOLE 40MG INJ (PROTONIX) (C9113) IV (08:53)
[2017-05-29] MEDS: CETIRIZINE (ZyrTEC) 5 MG/5 ML UDC DYE FREE NG (08:54)
[2017-05-29] MEDS: NEBIVOLOL 5 MG TAB (BYSTOLIC) PO ×2 (08:56→21:26)
[2017-05-29] MEDS: SENOKOT S TAB PO (09:00)
[2017-05-29] MEDS: CHLORHEXIDINE ORAL RINSE 0.12%/15ML 120ML BOTTLE MT ×2 (09:13→21:24)
[2017-05-29] MEDS: FUROSEMIDE 100 MG/10 ML VIAL (J1940) IV (10:12)
[2017-05-29] MEDS: POTASSIUM CHLORIDE 10% LIQ 20 MEQ/15 ML UDC PO (10:12)
[2017-05-29] MEDS: METOPROLOL TART 25 MG TABLET PO (18:02)
[2017-05-30] MEDS: ALBUTEROL SULFATE 2.5 MG/0.5 ML INH NEB SOLN NEB ×6 (03:38→23:02)
[2017-05-30 05:27] LABS: ABG BASE EXCESS -6.3 (-2.0-2.0); ABG HCO3 17.9 MEQ/L (22.0-26.0); ABG O2 SATURATION 99.3 % (95.0-99.0); ABG PARTIAL PRESSURE CO2 30.9 mmHg (35.0-45.0); ABG PARTIAL PRESSURE O2 156.1 mmHg (75.0-100.0); ABG STANDARD HCO3 19.3 MEQ/L (22.0-26.0); ABG TOTAL CO2 18.9 MEQ/L (22.0-29.0); ABG pH (ARTERIAL) 7.381 UNITS (7.350-7.450)
[2017-05-30 06:04] LABS: HEMATOCRIT 28.2 % (42.0-52.0); MEAN CORPUSCULAR HEMOGLOBIN 31.1 pg (27.0-33.0); MEAN CORPUSCULAR HGB CONC 31.9 g/dl (32.0-36.5); MEAN CORPUSCULAR VOLUME 97.6 fl (80.0-96.0); PLATELET COUNT, AUTOMATED 230 10^3/uL (150-450); RED BLOOD COUNT 2.89 10^6/uL (4.30-6.10); WHITE BLOOD COUNT 16.8 10^3/uL (4.0-10.0)
[2017-05-30 06:14] LABS: ADD MANUAL DIFFER YES; DIFF SLIDE NUMBER 55; POS COUNT POS FLAG; POSITIVE MORPH POS FLAG
[2017-05-30 06:21] LABS: INR 1.07
[2017-05-30 06:22] LABS: PARTIAL THROMBOPLASTIN TIME 27.4 SECONDS (26.8-37.9)
[2017-05-30] MEDS: METOPROLOL TART 25 MG TABLET PO ×2 (06:26→17:25)
[2017-05-30 06:27] LABS: ANION GAP 11 MEQ/L (8-16); BLOOD UREA NITROGEN 106 MG/DL (7-18); CALCIUM LEVEL 7.9 MG/DL (8.5-10.1); CARBON DIOXIDE LEVEL 19 MEQ/L (21-32); CHLORIDE LEVEL 117 MEQ/L (98-107); CREATININE FOR GFR 4.16 MG/DL (0.70-1.30); GLOMERULAR FILTRATION RATE 16.4 (>60); GLUCOSE, FASTING 120 MG/DL (70-100); POTASSIUM SERUM 3.7 MEQ/L (3.5-5.1); SODIUM LEVEL 147 MEQ/L (136-145)
[2017-05-30] MEDS: OXAZEPAM 15 MG CAP PO ×3 (06:28→21:10)
[2017-05-30] MEDS: HEPARIN SOD (PORCINE) 5000 UNITS/ML VIAL SQ ×3 (06:28→21:10)
[2017-05-30] MEDS: SODIUM CHLORIDE 0.9% INJ 10 ML SYR IV ×2 (06:29→18:02)
[2017-05-30 06:40] LABS: ANISOCYTOSIS 1+; BANDS 1 % (< 11); EOSINOPHILS 4 % (0-5); LYMPHOCYTES 14 % (16-52); METAMYELOCYTES 2 % (0-0); MONOCYTES 3 % (0-8); MYELOCYTES 3 % (0-0); NEUTROPHILS 73 % (35-75); PLATELET ESTIMATE NORMAL (NORMAL)
[2017-05-30] MEDS: BUDESONIDE 0.5 MG/2 ML INHALATION SUSPENSION INH ×2 (08:04→20:01)
[2017-05-30] MEDS: SENOKOT S TAB PO (08:47)
[2017-05-30 09:37] LABS: ABG BASE EXCESS -5.9 (-2.0-2.0); ABG HCO3 18.1 MEQ/L (22.0-26.0); ABG O2 SATURATION 92.9 % (95.0-99.0); ABG PARTIAL PRESSURE CO2 30.4 mmHg (35.0-45.0); ABG PARTIAL PRESSURE O2 68.9 mmHg (75.0-100.0); ABG STANDARD HCO3 19.6 MEQ/L (22.0-26.0); ABG pH (ARTERIAL) 7.393 UNITS (7.350-7.450)
[2017-05-30] MEDS: CETIRIZINE (ZyrTEC) 5 MG/5 ML UDC DYE FREE NG (09:42)
[2017-05-30] MEDS: NEBIVOLOL 5 MG TAB (BYSTOLIC) PO ×2 (09:44→21:10)
[2017-05-30] MEDS: PANTOPRAZOLE 40MG INJ (PROTONIX) (C9113) IV (09:44)
[2017-05-30] MEDS: CHLORHEXIDINE ORAL RINSE 0.12%/15ML 120ML BOTTLE MT ×2 (09:44→21:11)
[2017-05-30] MEDS: MORPHINE 4 MG/ML 1ML VIAL/SYRINGE (J2270) IV ×3 (11:45→23:43)
[2017-05-30] MEDS: KCL 20MEQ IN D5W 1000ML 1,000 ML IV (14:41)
[2017-05-30] MEDS ORDERED: METOPROLOL 5 MG/5 ML VIAL As Ordered (16:25)
[2017-05-30] MEDS: METOPROLOL 5 MG/5 ML VIAL IV (16:29)
[2017-05-30 16:55] LABS: ABG BASE EXCESS -6.7 (-2.0-2.0); ABG HCO3 18.1 MEQ/L (22.0-26.0); ABG O2 SATURATION 94.8 % (95.0-99.0); ABG PARTIAL PRESSURE CO2 33.6 mmHg (35.0-45.0); ABG PARTIAL PRESSURE O2 77.4 mmHg (75.0-100.0); ABG TOTAL CO2 19.2 MEQ/L (22.0-29.0)
[2017-05-30] MEDS ORDERED: AMIODARONE HCL 150 MG/100 ML PREMIXED BAG (NEXTERONE) As Ordered (17:51)
[2017-05-30] MEDS: AMIODARONE HCL 150 MG in APPROPRIATE DILUENT 1 EA IV (18:01)
[2017-05-31] MEDS: ALBUTEROL SULFATE 2.5 MG/0.5 ML INH NEB SOLN NEB ×6 (02:55→23:32)
[2017-05-31] MEDS: OXAZEPAM 15 MG CAP PO ×3 (05:31→22:06)
[2017-05-31] MEDS: METOPROLOL TART 25 MG TABLET PO ×2 (05:32→17:10)
[2017-05-31] MEDS: SODIUM CHLORIDE 0.9% INJ 10 ML SYR IV ×2 (05:32→17:10)
[2017-05-31] MEDS: HEPARIN SOD (PORCINE) 5000 UNITS/ML VIAL SQ ×3 (05:33→22:05)
[2017-05-31 05:58] LABS: ALBUMIN 2.1 GM/DL (3.2-5.2); ALBUMIN/GLOBULIN RATIO 0.45 (1.00-1.93); ALKALINE PHOSPHATASE 71 U/L (45-117); ALT/SGPT 84 U/L (12-78); ANION GAP 6 MEQ/L (8-16); AST/SGOT 70 U/L (7-37); BILIRUBIN,TOTAL 0.7 MG/DL (0.2-1.0); BLOOD UREA NITROGEN 109 MG/DL (7-18); CALCIUM LEVEL 7.7 MG/DL (8.5-10.1); CARBON DIOXIDE LEVEL 22 MEQ/L (21-32); CHLORIDE LEVEL 121 MEQ/L (98-107); CHOLESTEROL LEVEL 105 MG/DL (< 200); CPK CREATINE PHOSPHOKINASE 480 U/L (39-308); CREATININE FOR GFR 3.99 MG/DL (0.70-1.30); GLOMERULAR FILTRATION RATE 17.2 (>60); GLUCOSE, FASTING 133 MG/DL (70-100); LDH LACTATE DEHYDROGENASE 766 U/L (87-241); PHOSPHORUS LEVEL 4.5 MG/DL (2.5-4.9); POTASSIUM SERUM 3.9 MEQ/L (3.5-5.1); SODIUM LEVEL 149 MEQ/L (136-145); TOTAL PROTEIN 6.8 GM/DL (6.4-8.2); TRIGLYCERIDES LEVEL 232 MG/DL (<150)
[2017-05-31 06:06] LABS: INR 1.18; PROTHROMBIN TIME 15.2 SECONDS (12.4-14.5)
[2017-05-31 06:07] LABS: PARTIAL THROMBOPLASTIN TIME 29.8 SECONDS (26.8-37.9)
[2017-05-31 06:36] LABS: ABG BASE EXCESS -6.5 (-2.0-2.0); ABG HCO3 17.5 MEQ/L (22.0-26.0); ABG O2 SATURATION 96.6 % (95.0-99.0); ABG PARTIAL PRESSURE CO2 29.4 mmHg (35.0-45.0); ABG PARTIAL PRESSURE O2 86.7 mmHg (75.0-100.0); ABG STANDARD HCO3 19.1 MEQ/L (22.0-26.0); ABG TOTAL CO2 18.4 MEQ/L (22.0-29.0); ABG pH (ARTERIAL) 7.392 UNITS (7.350-7.450)
[2017-05-31] MEDS: CETIRIZINE (ZyrTEC) 5 MG/5 ML UDC DYE FREE NG (08:17)
[2017-05-31] MEDS: NEBIVOLOL 5 MG TAB (BYSTOLIC) PO (08:17)
[2017-05-31] MEDS: PANTOPRAZOLE 40MG INJ (PROTONIX) (C9113) IV (08:17)
[2017-05-31] MEDS: SENOKOT S TAB PO (08:18)
[2017-05-31] MEDS: KCL 20MEQ IN D5W 1000ML 1,000 ML IV (08:19)
[2017-05-31] MEDS: CHLORHEXIDINE ORAL RINSE 0.12%/15ML 120ML BOTTLE MT ×2 (08:19→22:05)
[2017-05-31] MEDS: BUDESONIDE 0.5 MG/2 ML INHALATION SUSPENSION INH ×2 (09:16→19:44)
[2017-05-31] MEDS: METOPROLOL TART 50 MG TAB PO (22:06)
[2017-06-01] MEDS: ALBUTEROL SULFATE 2.5 MG/0.5 ML INH NEB SOLN NEB ×6 (03:52→23:55)
[2017-06-01] MEDS: KCL 20MEQ IN D5W 1000ML 1,000 ML IV ×2 (04:42→16:41)
[2017-06-01] MEDS: OXAZEPAM 15 MG CAP PO ×3 (05:12→22:11)
[2017-06-01] MEDS: HEPARIN SOD (PORCINE) 5000 UNITS/ML VIAL SQ ×3 (05:12→22:12)
[2017-06-01] MEDS: METOPROLOL TART 50 MG TAB PO ×3 (05:12→18:00)
[2017-06-01] MEDS: SODIUM CHLORIDE 0.9% INJ 10 ML SYR IV ×2 (05:13→17:06)
[2017-06-01 06:22] LABS: ABG HCO3 19.9 MEQ/L (22.0-26.0); ABG O2 SATURATION 97.4 % (95.0-99.0); ABG PARTIAL PRESSURE CO2 32.2 mmHg (35.0-45.0); ABG PARTIAL PRESSURE O2 94.2 mmHg (75.0-100.0); ABG STANDARD HCO3 21.2 MEQ/L (22.0-26.0); ABG TOTAL CO2 20.9 MEQ/L (22.0-29.0); ABG pH (ARTERIAL) 7.409 UNITS (7.350-7.450)
[2017-06-01 06:44] LABS: INR 1.17; PARTIAL THROMBOPLASTIN TIME 30.5 SECONDS (26.8-37.9); PROTHROMBIN TIME 15.1 SECONDS (12.4-14.5)
[2017-06-01 06:53] LABS: ALBUMIN 2.2 GM/DL (3.2-5.2); ALBUMIN/GLOBULIN RATIO 0.41 (1.00-1.93); ALKALINE PHOSPHATASE 70 U/L (45-117); ALT/SGPT 80 U/L (12-78); ANION GAP 8 MEQ/L (8-16); AST/SGOT 67 U/L (7-37); BILIRUBIN,TOTAL 0.6 MG/DL (0.2-1.0); BLOOD UREA NITROGEN 114 MG/DL (7-18); CALCIUM LEVEL 8.1 MG/DL (8.5-10.1); CARBON DIOXIDE LEVEL 22 MEQ/L (21-32); CHLORIDE LEVEL 125 MEQ/L (98-107); CHOLESTEROL LEVEL 101 MG/DL (< 200); CPK CREATINE PHOSPHOKINASE 354 U/L (39-308); CREATININE FOR GFR 3.67 MG/DL (0.70-1.30); GLOMERULAR FILTRATION RATE 18.9 (>60); GLUCOSE, FASTING 129 MG/DL (70-100); LDH LACTATE DEHYDROGENASE 762 U/L (87-241); PHOSPHORUS LEVEL 3.7 MG/DL (2.5-4.9); POTASSIUM SERUM 4.2 MEQ/L (3.5-5.1); SODIUM LEVEL 155 MEQ/L (136-145); TOTAL PROTEIN 7.6 GM/DL (6.4-8.2); TRIGLYCERIDES LEVEL 225 MG/DL (<150)
[2017-06-01 08:03] LABS: BASO # 0.1 10^3/uL (0.0-0.2); BASO % 0.7 % (0.0-1.0); EOS # 0.5 10^3/uL (0.0-0.50); EOS % 3.7 % (0.0-3.0); HEMATOCRIT 31.2 % (42.0-52.0); HEMOGLOBIN 9.7 g/dl (14.0-18.0); IMMATURE GRANULOCYTE % 3.9 % (0-3.0); LYMPH # 1.4 10^3/uL (1.5-4.5); LYMPH % 11.4 % (24.0-44.0); MEAN CORPUSCULAR HEMOGLOBIN 30.9 pg (27.0-33.0); MEAN CORPUSCULAR HGB CONC 31.1 g/dl (32.0-36.5); MEAN CORPUSCULAR VOLUME 99.4 fl (80.0-96.0); MONO # 1.3 10^3/uL (0.0-0.8); MONO % 9.9 % (0.0-5.0); NEUTROPHILS # 8.9 10^3/uL (1.8-7.7); NEUTROPHILS % 70.4 % (36.0-66.0); PLATELET COUNT, AUTOMATED 257 10^3/uL (150-450); RED BLOOD COUNT 3.14 10^6/uL (4.30-6.10); RED CELL DISTRIBUTION WIDTH 16.9 % (11.5-14.5); WHITE BLOOD COUNT 12.6 10^3/uL (4.0-10.0)
[2017-06-01] MEDS: CETIRIZINE (ZyrTEC) 5 MG/5 ML UDC DYE FREE NG (08:24)
[2017-06-01] MEDS: PANTOPRAZOLE 40MG INJ (PROTONIX) (C9113) IV (08:24)
[2017-06-01] MEDS: SENOKOT S TAB PO (08:25)
[2017-06-01] MEDS: CHLORHEXIDINE ORAL RINSE 0.12%/15ML 120ML BOTTLE MT ×2 (08:25→22:12)
[2017-06-01] MEDS: BUDESONIDE 0.5 MG/2 ML INHALATION SUSPENSION INH ×2 (08:34→20:09)
[2017-06-01 16:27] LABS: ALBUMIN 2.1 GM/DL (3.2-5.2); ANION GAP 6 MEQ/L (8-16); BLOOD UREA NITROGEN 112 MG/DL (7-18); CARBON DIOXIDE LEVEL 23 MEQ/L (21-32); CHLORIDE LEVEL 124 MEQ/L (98-107); CREATININE FOR GFR 3.61 MG/DL (0.70-1.30); GLOMERULAR FILTRATION RATE 19.3 (>60); GLUCOSE, FASTING 132 MG/DL (70-100); PHOSPHORUS LEVEL 3.9 MG/DL (2.5-4.9); POTASSIUM SERUM 4.4 MEQ/L (3.5-5.1); SODIUM LEVEL 153 MEQ/L (136-145)
[2017-06-01] MEDS: D5W 1,000 ML IV (22:11)
[2017-06-02] MEDS: METOPROLOL TART 50 MG TAB PO ×5 (00:17→23:41)
[2017-06-02] MEDS: ALBUTEROL SULFATE 2.5 MG/0.5 ML INH NEB SOLN NEB ×2 (03:14→07:55)
[2017-06-02 04:22] LABS: BASO # 0.1 10^3/uL (0.0-0.2); EOS # 0.5 10^3/uL (0.0-0.50); EOS % 4.1 % (0.0-3.0); HEMATOCRIT 31.1 % (42.0-52.0); HEMOGLOBIN 9.6 g/dl (14.0-18.0); IMMATURE GRANULOCYTE % 2.2 % (0-3.0); LYMPH # 1.8 10^3/uL (1.5-4.5); MEAN CORPUSCULAR HGB CONC 30.9 g/dl (32.0-36.5); MEAN CORPUSCULAR VOLUME 100.3 fl (80.0-96.0); MONO # 1.1 10^3/uL (0.0-0.8); MONO % 8.3 % (0.0-5.0); NEUTROPHILS # 9.2 10^3/uL (1.8-7.7); NEUTROPHILS % 70.4 % (36.0-66.0); PLATELET COUNT, AUTOMATED 202 10^3/uL (150-450); RED CELL DISTRIBUTION WIDTH 16.6 % (11.5-14.5)
[2017-06-02 04:31] LABS: INR 1.08; PROTHROMBIN TIME 14.2 SECONDS (12.4-14.5)
[2017-06-02 04:32] LABS: PARTIAL THROMBOPLASTIN TIME 21.4 SECONDS (26.8-37.9)
[2017-06-02 04:46] LABS: ALBUMIN 2.1 GM/DL (3.2-5.2); ALBUMIN/GLOBULIN RATIO 0.39 (1.00-1.93); ALKALINE PHOSPHATASE 73 U/L (45-117); ALT/SGPT 81 U/L (12-78); ANION GAP 8 MEQ/L (8-16); AST/SGOT 73 U/L (7-37); BILIRUBIN,TOTAL 0.5 MG/DL (0.2-1.0); BLOOD UREA NITROGEN 105 MG/DL (7-18); CARBON DIOXIDE LEVEL 23 MEQ/L (21-32); CHLORIDE LEVEL 120 MEQ/L (98-107); CHOLESTEROL LEVEL 93 MG/DL (< 200); CPK CREATINE PHOSPHOKINASE 233 U/L (39-308); CREATININE FOR GFR 3.47 MG/DL (0.70-1.30); GLOMERULAR FILTRATION RATE 20.2 (>60); GLUCOSE, FASTING 133 MG/DL (70-100); LDH LACTATE DEHYDROGENASE 767 U/L (87-241); MAGNESIUM LEVEL 2.7 MG/DL (1.8-2.4); PHOSPHORUS LEVEL 3.9 MG/DL (2.5-4.9); POTASSIUM SERUM 4.1 MEQ/L (3.5-5.1); SODIUM LEVEL 151 MEQ/L (136-145); TOTAL PROTEIN 7.5 GM/DL (6.4-8.2); TRIGLYCERIDES LEVEL 260 MG/DL (<150)
[2017-06-02 06:03] LABS: ABG BASE EXCESS -4.6 (-2.0-2.0); ABG HCO3 19.2 MEQ/L (22.0-26.0); ABG O2 SATURATION 95.6 % (95.0-99.0); ABG PARTIAL PRESSURE CO2 31.4 mmHg (35.0-45.0); ABG PARTIAL PRESSURE O2 80.3 mmHg (75.0-100.0); ABG STANDARD HCO3 20.6 MEQ/L (22.0-26.0); ABG TOTAL CO2 20.2 MEQ/L (22.0-29.0); ABG pH (ARTERIAL) 7.405 UNITS (7.350-7.450)
[2017-06-02] MEDS: HEPARIN SOD (PORCINE) 5000 UNITS/ML VIAL SQ ×3 (06:41→22:30)
[2017-06-02] MEDS: SODIUM CHLORIDE 0.9% INJ 10 ML SYR IV ×2 (06:42→17:52)
[2017-06-02] MEDS: OXAZEPAM 15 MG CAP PO ×3 (06:42→22:00)
[2017-06-02] MEDS: D5W 1,000 ML IV ×2 (07:37→18:03)
[2017-06-02] MEDS: BUDESONIDE 0.5 MG/2 ML INHALATION SUSPENSION INH ×2 (07:55→19:29)
[2017-06-02] MEDS: CHLORHEXIDINE ORAL RINSE 0.12%/15ML 120ML BOTTLE MT (08:41)
[2017-06-02] MEDS: SENOKOT S TAB PO (08:41)
[2017-06-02] MEDS: CETIRIZINE (ZyrTEC) 5 MG/5 ML UDC DYE FREE NG (08:45)
[2017-06-02] MEDS: PANTOPRAZOLE 40MG INJ (PROTONIX) (C9113) IV (08:46)
[2017-06-02] MEDS: IPRATROPIUM 0.5MG/ALBUTEROL 2.5MG INH SOL UD 3ML (DUONEB)(J7620) NEB ×2 (13:23→19:29)
[2017-06-02] MEDS: DIGOXIN INJ 0.5 MG/2 ML AMP (J1160) IV ×4 (20:01→23:41)
[2017-06-02] MEDS: AMIODARONE HCL 150 MG in APPROPRIATE DILUENT 1 EA IV ×2 (21:35→22:39)
[2017-06-02] MEDS: NS 0.45% 500 ML IV (22:30)
[2017-06-03] MEDS: MORPHINE 4 MG/ML 1ML VIAL/SYRINGE (J2270) IV (00:41)
[2017-06-03] MEDS: IPRATROPIUM 0.5MG/ALBUTEROL 2.5MG INH SOL UD 3ML (DUONEB)(J7620) NEB ×4 (01:29→19:49)
[2017-06-03] MEDS: METOPROLOL TART 50 MG TAB PO ×5 (01:52→23:53)
[2017-06-03] MEDS: AMIODARONE HCL 150 MG in APPROPRIATE DILUENT 1 EA IV (01:53)
[2017-06-03] MEDS: NS 0.45% 500 ML IV ×2 (01:53→02:00)
[2017-06-03 06:01] LABS: ABG BASE EXCESS -5.1 (-2.0-2.0); ABG HCO3 19.3 MEQ/L (22.0-26.0); ABG PARTIAL PRESSURE CO2 33.8 mmHg (35.0-45.0); ABG PARTIAL PRESSURE O2 95.4 mmHg (75.0-100.0); ABG TOTAL CO2 20.4 MEQ/L (22.0-29.0); ABG pH (ARTERIAL) 7.375 UNITS (7.350-7.450)
[2017-06-03 06:02] LABS: ABG O2 SATURATION 97.2 % (95.0-99.0); ABG STANDARD HCO3 20.4 MEQ/L (22.0-26.0)
[2017-06-03] MEDS ORDERED: METOPROLOL TART 50 MG TAB As Ordered (06:09)
[2017-06-03] MEDS ORDERED: HEPARIN SOD (PORCINE) 5000 UNITS/ML VIAL As Ordered (06:09)
[2017-06-03] MEDS ORDERED: OXAZEPAM 15 MG CAP As Ordered (06:09)
[2017-06-03 06:12] LABS: BASO # 0.1 10^3/uL (0.0-0.2); BASO % 0.7 % (0.0-1.0); EOS # 0.6 10^3/uL (0.0-0.50); EOS % 4.3 % (0.0-3.0); HEMATOCRIT 30.7 % (42.0-52.0); HEMOGLOBIN 9.4 g/dl (14.0-18.0); IMMATURE GRANULOCYTE % 1.9 % (0-3.0); LYMPH # 2.3 10^3/uL (1.5-4.5); LYMPH % 15.3 % (24.0-44.0); MEAN CORPUSCULAR HEMOGLOBIN 30.6 pg (27.0-33.0); MEAN CORPUSCULAR HGB CONC 30.6 g/dl (32.0-36.5); MONO % 6.9 % (0.0-5.0); NEUTROPHILS # 10.7 10^3/uL (1.8-7.7); NEUTROPHILS % 70.9 % (36.0-66.0); PLATELET COUNT, AUTOMATED 224 10^3/uL (150-450); RED BLOOD COUNT 3.07 10^6/uL (4.30-6.10); RED CELL DISTRIBUTION WIDTH 16.4 % (11.5-14.5)
[2017-06-03] MEDS: OXAZEPAM 15 MG CAP PO ×3 (06:17→21:24)
[2017-06-03] MEDS: HEPARIN SOD (PORCINE) 5000 UNITS/ML VIAL SQ ×3 (06:18→21:24)
[2017-06-03] MEDS: SODIUM CHLORIDE 0.9% INJ 10 ML SYR IV ×2 (06:18→18:05)
[2017-06-03 06:23] LABS: INR 1.12; PROTHROMBIN TIME 14.6 SECONDS (12.4-14.5)
[2017-06-03 06:24] LABS: PARTIAL THROMBOPLASTIN TIME 30.7 SECONDS (26.8-37.9)
[2017-06-03 06:50] LABS: ALBUMIN/GLOBULIN RATIO 0.41 (1.00-1.93); ALKALINE PHOSPHATASE 70 U/L (45-117); ALT/SGPT 81 U/L (12-78); ANION GAP 10 MEQ/L (8-16); AST/SGOT 73 U/L (7-37); BILIRUBIN,TOTAL 0.5 MG/DL (0.2-1.0); BLOOD UREA NITROGEN 94 MG/DL (7-18); CALCIUM LEVEL 7.6 MG/DL (8.5-10.1); CARBON DIOXIDE LEVEL 21 MEQ/L (21-32); CHLORIDE LEVEL 116 MEQ/L (98-107); CHOLESTEROL LEVEL 88 MG/DL (< 200); CPK CREATINE PHOSPHOKINASE 208 U/L (39-308); CREATININE FOR GFR 2.99 MG/DL (0.70-1.30); GLUCOSE, FASTING 253 MG/DL (70-100); LDH LACTATE DEHYDROGENASE 723 U/L (87-241); MAGNESIUM LEVEL 2.4 MG/DL (1.8-2.4); PHOSPHORUS LEVEL 4.5 MG/DL (2.5-4.9); POTASSIUM SERUM 3.9 MEQ/L (3.5-5.1); SODIUM LEVEL 147 MEQ/L (136-145); TOTAL PROTEIN 6.9 GM/DL (6.4-8.2); TRIGLYCERIDES LEVEL 265 MG/DL (<150)
[2017-06-03] MEDS: BUDESONIDE 0.5 MG/2 ML INHALATION SUSPENSION INH ×2 (07:47→19:49)
[2017-06-03] MEDS: CETIRIZINE (ZyrTEC) 5 MG/5 ML UDC DYE FREE NG (08:21)
[2017-06-03] MEDS: D5W 1,000 ML IV (11:02)
[2017-06-03] MEDS: KCL 20MEQ IN 0.45NS 1000ML 1,000 ML IV (11:42)
[2017-06-03] MEDS: AMIODARONE 200 MG TAB (PACERONE) NG ×3 (13:31→21:25)
[2017-06-03] MEDS: KCL 20MEQ IN D5W 1000ML 1,000 ML IV (15:30)
[2017-06-04] MEDS: IPRATROPIUM 0.5MG/ALBUTEROL 2.5MG INH SOL UD 3ML (DUONEB)(J7620) NEB ×4 (02:22→19:54)
[2017-06-04 02:53] LABS: BEDSIDE GLUCOSE 142 MG/DL (70-105)
[2017-06-04 04:34] LABS: BASO # 0.1 10^3/uL (0.0-0.2); BASO % 0.9 % (0.0-1.0); EOS # 0.8 10^3/uL (0.0-0.50); EOS % 5.8 % (0.0-3.0); HEMATOCRIT 31.4 % (42.0-52.0); HEMOGLOBIN 9.7 g/dl (14.0-18.0); IMMATURE GRANULOCYTE % 1.4 % (0-3.0); LYMPH # 2.3 10^3/uL (1.5-4.5); LYMPH % 16.3 % (24.0-44.0); MEAN CORPUSCULAR HEMOGLOBIN 30.5 pg (27.0-33.0); MEAN CORPUSCULAR HGB CONC 30.9 g/dl (32.0-36.5); MEAN CORPUSCULAR VOLUME 98.7 fl (80.0-96.0); MONO # 0.8 10^3/uL (0.0-0.8); MONO % 5.7 % (0.0-5.0); NEUTROPHILS # 9.7 10^3/uL (1.8-7.7); NEUTROPHILS % 69.9 % (36.0-66.0); PLATELET COUNT, AUTOMATED 208 10^3/uL (150-450); RED BLOOD COUNT 3.18 10^6/uL (4.30-6.10); WHITE BLOOD COUNT 13.8 10^3/uL (4.0-10.0)
[2017-06-04] MEDS: KCL 20MEQ IN D5W 1000ML 1,000 ML IV ×2 (04:35→14:00)
[2017-06-04 04:39] LABS: INR 1.07; PROTHROMBIN TIME 14.1 SECONDS (12.4-14.5)
[2017-06-04 04:49] LABS: ALBUMIN 2.1 GM/DL (3.2-5.2); ALT/SGPT 73 U/L (12-78); ANION GAP 8 MEQ/L (8-16); AST/SGOT 60 U/L (7-37); BLOOD UREA NITROGEN 89 MG/DL (7-18); CALCIUM LEVEL 7.9 MG/DL (8.5-10.1); CARBON DIOXIDE LEVEL 22 MEQ/L (21-32); CHLORIDE LEVEL 123 MEQ/L (98-107); CHOLESTEROL LEVEL 96 MG/DL (< 200); CREATININE FOR GFR 2.81 MG/DL (0.70-1.30); GLOMERULAR FILTRATION RATE 25.8 (>60); GLUCOSE, FASTING 125 MG/DL (70-100); MAGNESIUM LEVEL 2.5 MG/DL (1.8-2.4); POTASSIUM SERUM 4.3 MEQ/L (3.5-5.1); SODIUM LEVEL 153 MEQ/L (136-145); TROPONIN I < 0.02 NG/ML (< 0.10)
[2017-06-04 04:52] LABS: ALKALINE PHOSPHATASE 69 U/L (45-117); BILIRUBIN,TOTAL 0.5 MG/DL (0.2-1.0); CPK CREATINE PHOSPHOKINASE 160 U/L (39-308); LDH LACTATE DEHYDROGENASE 672 U/L (87-241); PHOSPHORUS LEVEL 3.8 MG/DL (2.5-4.9); TOTAL PROTEIN 7.3 GM/DL (6.4-8.2); TRIGLYCERIDES LEVEL 266 MG/DL (<150)
[2017-06-04] MEDS: OXAZEPAM 15 MG CAP PO (05:22)
[2017-06-04] MEDS: SODIUM CHLORIDE 0.9% INJ 10 ML SYR IV ×2 (05:23→18:20)
[2017-06-04] MEDS: METOPROLOL TART 50 MG TAB PO ×4 (05:23→23:58)
[2017-06-04] MEDS: HEPARIN SOD (PORCINE) 5000 UNITS/ML VIAL SQ ×3 (05:23→22:16)
[2017-06-04] MEDS: BUDESONIDE 0.5 MG/2 ML INHALATION SUSPENSION INH ×2 (07:49→19:54)
[2017-06-04] MEDS: CETIRIZINE (ZyrTEC) 5 MG/5 ML UDC DYE FREE NG (09:25)
[2017-06-04] MEDS: AMIODARONE 200 MG TAB (PACERONE) NG ×4 (09:26→20:43)
[2017-06-04] MEDS: D5W 1000 ML IV (09:30)
[2017-06-04] MEDS: ALBUTEROL SULFATE 2.5 MG/0.5 ML INH NEB SOLN NEB (10:46)
[2017-06-04] MEDS: ACETAMINOPHEN 325 MG/10.15 ML UDC GT (15:38)
[2017-06-04] MEDS: D5W 500 ML IV (17:12)
[2017-06-04 20:10] LABS: ANION GAP 11 MEQ/L (8-16); BLOOD UREA NITROGEN 81 MG/DL (7-18); CALCIUM LEVEL 7.7 MG/DL (8.5-10.1); CARBON DIOXIDE LEVEL 21 MEQ/L (21-32); CHLORIDE LEVEL 118 MEQ/L (98-107); CREATININE FOR GFR 2.61 MG/DL (0.70-1.30); GLOMERULAR FILTRATION RATE 28.1 (>60); GLUCOSE, FASTING 131 MG/DL (70-100); POTASSIUM SERUM 4.6 MEQ/L (3.5-5.1); SODIUM LEVEL 150 MEQ/L (136-145)
[2017-06-04] MEDS: D5W 1,000 ML IV (20:43)
[2017-06-05] MEDS: IPRATROPIUM 0.5MG/ALBUTEROL 2.5MG INH SOL UD 3ML (DUONEB)(J7620) NEB ×4 (01:09→20:45)
[2017-06-05 04:58] LABS: BASO # 0.1 10^3/uL (0.0-0.2); BASO % 0.6 % (0.0-1.0); EOS # 0.8 10^3/uL (0.0-0.50); EOS % 4.7 % (0.0-3.0); HEMATOCRIT 33.3 % (42.0-52.0); HEMOGLOBIN 10.4 g/dl (14.0-18.0); IMMATURE GRANULOCYTE % 1.7 % (0-3.0); LYMPH % 11.4 % (24.0-44.0); MEAN CORPUSCULAR HEMOGLOBIN 30.9 pg (27.0-33.0); MEAN CORPUSCULAR HGB CONC 31.2 g/dl (32.0-36.5); MEAN CORPUSCULAR VOLUME 98.8 fl (80.0-96.0); MONO % 5.5 % (0.0-5.0); NEUTROPHILS # 13.3 10^3/uL (1.8-7.7); NEUTROPHILS % 76.1 % (36.0-66.0); PLATELET COUNT, AUTOMATED 193 10^3/uL (150-450); RED BLOOD COUNT 3.37 10^6/uL (4.30-6.10); RED CELL DISTRIBUTION WIDTH 16.1 % (11.5-14.5); WHITE BLOOD COUNT 17.5 10^3/uL (4.0-10.0)
[2017-06-05 05:09] LABS: PROTHROMBIN TIME 14.4 SECONDS (12.4-14.5)
[2017-06-05 05:10] LABS: PARTIAL THROMBOPLASTIN TIME 28.8 SECONDS (26.8-37.9)
[2017-06-05 05:25] LABS: ALBUMIN 2.3 GM/DL (3.2-5.2); ALBUMIN/GLOBULIN RATIO 0.44 (1.00-1.93); ALKALINE PHOSPHATASE 70 U/L (45-117); ALT/SGPT 73 U/L (12-78); ANION GAP 9 MEQ/L (8-16); AST/SGOT 56 U/L (7-37); BILIRUBIN,TOTAL 0.4 MG/DL (0.2-1.0); BLOOD UREA NITROGEN 78 MG/DL (7-18); CARBON DIOXIDE LEVEL 21 MEQ/L (21-32); CHLORIDE LEVEL 119 MEQ/L (98-107); CHOLESTEROL LEVEL 98 MG/DL (< 200); CPK CREATINE PHOSPHOKINASE 129 U/L (39-308); CREATININE FOR GFR 2.44 MG/DL (0.70-1.30); GLOMERULAR FILTRATION RATE 30.3 (>60); GLUCOSE, FASTING 138 MG/DL (70-100); LDH LACTATE DEHYDROGENASE 648 U/L (87-241); MAGNESIUM LEVEL 2.2 MG/DL (1.8-2.4); PHOSPHORUS LEVEL 3.8 MG/DL (2.5-4.9); POTASSIUM SERUM 4.6 MEQ/L (3.5-5.1); SODIUM LEVEL 149 MEQ/L (136-145); TOTAL PROTEIN 7.5 GM/DL (6.4-8.2); TRIGLYCERIDES LEVEL 241 MG/DL (<150)
[2017-06-05] MEDS: METOPROLOL TART 50 MG TAB PO ×3 (06:00→18:23)
[2017-06-05] MEDS: HEPARIN SOD (PORCINE) 5000 UNITS/ML VIAL SQ ×3 (06:00→21:13)
[2017-06-05] MEDS: SODIUM CHLORIDE 0.9% INJ 10 ML SYR IV ×2 (06:00→18:21)
[2017-06-05] MEDS: D5W 1,000 ML IV ×2 (06:12→18:23)
[2017-06-05] MEDS: AMIODARONE 200 MG TAB (PACERONE) NG ×4 (07:52→21:13)
[2017-06-05] MEDS: CETIRIZINE (ZyrTEC) 5 MG/5 ML UDC DYE FREE NG (07:52)
[2017-06-05] MEDS: BUDESONIDE 0.5 MG/2 ML INHALATION SUSPENSION INH ×2 (08:00→20:45)
[2017-06-06] MEDS: METOPROLOL TART 50 MG TAB PO ×4 (00:14→17:02)
[2017-06-06] MEDS: SANTYL OINT 30GM TOP ×2 (01:00→08:31)
[2017-06-06] MEDS: IPRATROPIUM 0.5MG/ALBUTEROL 2.5MG INH SOL UD 3ML (DUONEB)(J7620) NEB ×4 (02:03→19:32)
[2017-06-06] MEDS: D5W 1,000 ML IV ×3 (02:30→22:16)
[2017-06-06 05:05] LABS: BASO # 0.1 10^3/uL (0.0-0.2); BASO % 0.7 % (0.0-1.0); EOS # 0.6 10^3/uL (0.0-0.50); EOS % 3.4 % (0.0-3.0); HEMATOCRIT 33.5 % (42.0-52.0); HEMOGLOBIN 10.6 g/dl (14.0-18.0); IMMATURE GRANULOCYTE % 2.6 % (0-3.0); LYMPH # 2.7 10^3/uL (1.5-4.5); LYMPH % 15.1 % (24.0-44.0); MEAN CORPUSCULAR HEMOGLOBIN 31.1 pg (27.0-33.0); MEAN CORPUSCULAR HGB CONC 31.6 g/dl (32.0-36.5); MEAN CORPUSCULAR VOLUME 98.2 fl (80.0-96.0); MONO # 1.2 10^3/uL (0.0-0.8); MONO % 6.9 % (0.0-5.0); NEUTROPHILS # 12.7 10^3/uL (1.8-7.7); NEUTROPHILS % 71.3 % (36.0-66.0); PLATELET COUNT, AUTOMATED 181 10^3/uL (150-450); RED BLOOD COUNT 3.41 10^6/uL (4.30-6.10); RED CELL DISTRIBUTION WIDTH 16.1 % (11.5-14.5); WHITE BLOOD COUNT 17.8 10^3/uL (4.0-10.0)
[2017-06-06 05:15] LABS: INR 1.13; PROTHROMBIN TIME 14.7 SECONDS (12.4-14.5)
[2017-06-06 05:16] LABS: PARTIAL THROMBOPLASTIN TIME 30.9 SECONDS (26.8-37.9)
[2017-06-06] MEDS: HEPARIN SOD (PORCINE) 5000 UNITS/ML VIAL SQ ×3 (05:35→20:57)
[2017-06-06] MEDS: SODIUM CHLORIDE 0.9% INJ 10 ML SYR IV ×2 (05:35→17:03)
[2017-06-06 05:36] LABS: ALBUMIN 2.3 GM/DL (3.2-5.2); ALBUMIN/GLOBULIN RATIO 0.42 (1.00-1.93); ALKALINE PHOSPHATASE 80 U/L (45-117); ALT/SGPT 69 U/L (12-78); ANION GAP 8 MEQ/L (8-16); AST/SGOT 51 U/L (7-37); BILIRUBIN,TOTAL 0.5 MG/DL (0.2-1.0); BLOOD UREA NITROGEN 69 MG/DL (7-18); CARBON DIOXIDE LEVEL 23 MEQ/L (21-32); CHLORIDE LEVEL 118 MEQ/L (98-107); CHOLESTEROL LEVEL 96 MG/DL (< 200); CPK CREATINE PHOSPHOKINASE 111 U/L (39-308); CREATININE FOR GFR 2.37 MG/DL (0.70-1.30); GLOMERULAR FILTRATION RATE 31.4 (>60); GLUCOSE, FASTING 131 MG/DL (70-100); LDH LACTATE DEHYDROGENASE 628 U/L (87-241); MAGNESIUM LEVEL 2.2 MG/DL (1.8-2.4); PHOSPHORUS LEVEL 3.9 MG/DL (2.5-4.9); POTASSIUM SERUM 4.3 MEQ/L (3.5-5.1); SODIUM LEVEL 149 MEQ/L (136-145); TOTAL PROTEIN 7.8 GM/DL (6.4-8.2); TRIGLYCERIDES LEVEL 203 MG/DL (<150)
[2017-06-06] MEDS: BUDESONIDE 0.5 MG/2 ML INHALATION SUSPENSION INH ×2 (07:54→19:32)
[2017-06-06] MEDS: CETIRIZINE (ZyrTEC) 5 MG/5 ML UDC DYE FREE NG (08:31)
[2017-06-06] MEDS: AMIODARONE 200 MG TAB (PACERONE) NG ×4 (08:31→20:56)
[2017-06-06] MEDS ORDERED: SANTYL OINT 30GM TOP (09:00)
[2017-06-07] MEDS: METOPROLOL 5 MG/5 ML VIAL IV ×5 (01:13→23:47)
[2017-06-07] MEDS: IPRATROPIUM 0.5MG/ALBUTEROL 2.5MG INH SOL UD 3ML (DUONEB)(J7620) NEB ×4 (01:22→19:11)
[2017-06-07 05:13] LABS: MAGNESIUM LEVEL 2.3 MG/DL (1.8-2.4)
[2017-06-07 05:18] LABS: BASO # 0.2 10^3/uL (0.0-0.2); BASO % 0.9 % (0.0-1.0); EOS # 0.7 10^3/uL (0.0-0.50); HEMATOCRIT 36.5 % (42.0-52.0); HEMOGLOBIN 11.3 g/dl (14.0-18.0); IMMATURE GRANULOCYTE % 2.8 % (0-3.0); LYMPH % 16.5 % (24.0-44.0); MONO # 1.2 10^3/uL (0.0-0.8); MONO % 6.7 % (0.0-5.0); NEUTROPHILS # 12.7 10^3/uL (1.8-7.7); NEUTROPHILS % 69.1 % (36.0-66.0); PLATELET COUNT, AUTOMATED 144 10^3/uL (150-450); RED BLOOD COUNT 3.65 10^6/uL (4.30-6.10); RED CELL DISTRIBUTION WIDTH 16.2 % (11.5-14.5); WHITE BLOOD COUNT 18.3 10^3/uL (4.0-10.0)
[2017-06-07] MEDS: HEPARIN SOD (PORCINE) 5000 UNITS/ML VIAL SQ ×3 (06:01→21:09)
[2017-06-07] MEDS: SODIUM CHLORIDE 0.9% INJ 10 ML SYR IV ×2 (06:02→17:13)
[2017-06-07] MEDS: BUDESONIDE 0.5 MG/2 ML INHALATION SUSPENSION INH ×2 (07:53→19:11)
[2017-06-07] MEDS: AMIODARONE 200 MG TAB (PACERONE) NG ×4 (08:40→21:08)
[2017-06-07] MEDS: D5W 1,000 ML IV ×3 (08:40→23:27)
[2017-06-07] MEDS: SANTYL OINT 30GM TOP (08:40)
[2017-06-07] MEDS: CETIRIZINE (ZyrTEC) 5 MG/5 ML UDC DYE FREE NG (08:40)
[2017-06-07 09:51] LABS: ANION GAP 12 MEQ/L (8-16); BLOOD UREA NITROGEN 66 MG/DL (7-18); CALCIUM LEVEL 8.2 MG/DL (8.5-10.1); CARBON DIOXIDE LEVEL 15 MEQ/L (21-32); CHLORIDE LEVEL 119 MEQ/L (98-107); GLOMERULAR FILTRATION RATE 30.9 (>60); GLUCOSE, FASTING 78 MG/DL (70-100); POTASSIUM SERUM 5.1 MEQ/L (3.5-5.1); SODIUM LEVEL 146 MEQ/L (136-145)
[2017-06-07 11:15] LABS: ANION GAP 7 MEQ/L (8-16); BLOOD UREA NITROGEN 66 MG/DL (7-18); CALCIUM LEVEL 8.2 MG/DL (8.5-10.1); CARBON DIOXIDE LEVEL 24 MEQ/L (21-32); CHLORIDE LEVEL 118 MEQ/L (98-107); CREATININE FOR GFR 2.33 MG/DL (0.70-1.30); GLUCOSE, FASTING 114 MG/DL (70-100); POTASSIUM SERUM 5.1 MEQ/L (3.5-5.1); SODIUM LEVEL 149 MEQ/L (136-145)
[2017-06-08] MEDS: IPRATROPIUM 0.5MG/ALBUTEROL 2.5MG INH SOL UD 3ML (DUONEB)(J7620) NEB ×3 (02:11→20:01)
[2017-06-08 04:36] LABS: BASO # 0.1 10^3/uL (0.0-0.2); BASO % 0.8 % (0.0-1.0); EOS # 0.7 10^3/uL (0.0-0.50); EOS % 4.1 % (0.0-3.0); HEMATOCRIT 36.2 % (42.0-52.0); HEMOGLOBIN 11.2 g/dl (14.0-18.0); IMMATURE GRANULOCYTE % 3.3 % (0-3.0); LYMPH # 2.9 10^3/uL (1.5-4.5); LYMPH % 17.6 % (24.0-44.0); MEAN CORPUSCULAR HEMOGLOBIN 30.4 pg (27.0-33.0); MEAN CORPUSCULAR HGB CONC 30.9 g/dl (32.0-36.5); MEAN CORPUSCULAR VOLUME 98.4 fl (80.0-96.0); MONO # 1.1 10^3/uL (0.0-0.8); MONO % 6.5 % (0.0-5.0); NEUTROPHILS # 11.2 10^3/uL (1.8-7.7); NEUTROPHILS % 67.7 % (36.0-66.0); PLATELET COUNT, AUTOMATED 159 10^3/uL (150-450); RED BLOOD COUNT 3.68 10^6/uL (4.30-6.10); WHITE BLOOD COUNT 16.5 10^3/uL (4.0-10.0)
[2017-06-08 04:45] LABS: ANION GAP 8 MEQ/L (8-16); BLOOD UREA NITROGEN 58 MG/DL (7-18); CALCIUM LEVEL 8.1 MG/DL (8.5-10.1); CARBON DIOXIDE LEVEL 23 MEQ/L (21-32); CHLORIDE LEVEL 115 MEQ/L (98-107); CREATININE FOR GFR 2.26 MG/DL (0.70-1.30); GLOMERULAR FILTRATION RATE 33.1 (>60); GLUCOSE, FASTING 118 MG/DL (70-100); MAGNESIUM LEVEL 2.1 MG/DL (1.8-2.4); POTASSIUM SERUM 4.3 MEQ/L (3.5-5.1); SODIUM LEVEL 146 MEQ/L (136-145)
[2017-06-08] MEDS: METOPROLOL 5 MG/5 ML VIAL IV (06:00)
[2017-06-08] MEDS: BUDESONIDE 0.5 MG/2 ML INHALATION SUSPENSION INH ×2 (06:11→20:01)
[2017-06-08] MEDS: SODIUM CHLORIDE 0.9% INJ 10 ML SYR IV ×2 (06:18→18:00)
[2017-06-08] MEDS: HEPARIN SOD (PORCINE) 5000 UNITS/ML VIAL SQ ×4 (06:18→23:18)
[2017-06-08] MEDS: METOPROLOL TART 50 MG TAB PO ×4 (06:20→23:19)
[2017-06-08] MEDS: D5W 1,000 ML IV ×3 (06:25→23:19)
[2017-06-08] MEDS: CETIRIZINE (ZyrTEC) 5 MG/5 ML UDC DYE FREE NG (08:43)
[2017-06-08] MEDS: AMIODARONE 200 MG TAB (PACERONE) NG (08:44)
[2017-06-08] MEDS: SANTYL OINT 30GM TOP (08:46)
[2017-06-08] MEDS: AMIODARONE 200 MG TAB (PACERONE) PO ×4 (13:31→23:19)
[2017-06-09] MEDS: METOPROLOL TART 50 MG TAB PO ×4 (00:20→18:01)
[2017-06-09] MEDS: IPRATROPIUM 0.5MG/ALBUTEROL 2.5MG INH SOL UD 3ML (DUONEB)(J7620) NEB ×4 (02:32→19:53)
[2017-06-09] MEDS: HEPARIN SOD (PORCINE) 5000 UNITS/ML VIAL SQ ×3 (05:45→21:23)
[2017-06-09 07:07] LABS: BASO # 0.2 10^3/uL (0.0-0.2); BASO % 0.9 % (0.0-1.0); EOS # 0.6 10^3/uL (0.0-0.50); EOS % 3.4 % (0.0-3.0); HEMATOCRIT 36.2 % (42.0-52.0); HEMOGLOBIN 11.3 g/dl (14.0-18.0); IMMATURE GRANULOCYTE % 3.8 % (0-3.0); LYMPH # 2.9 10^3/uL (1.5-4.5); LYMPH % 17.4 % (24.0-44.0); MEAN CORPUSCULAR HEMOGLOBIN 30.7 pg (27.0-33.0); MEAN CORPUSCULAR HGB CONC 31.2 g/dl (32.0-36.5); MEAN CORPUSCULAR VOLUME 98.4 fl (80.0-96.0); MONO # 1.2 10^3/uL (0.0-0.8); MONO % 7.2 % (0.0-5.0); NEUTROPHILS # 11.1 10^3/uL (1.8-7.7); NEUTROPHILS % 67.3 % (36.0-66.0); PLATELET COUNT, AUTOMATED 135 10^3/uL (150-450); RED BLOOD COUNT 3.68 10^6/uL (4.30-6.10); WHITE BLOOD COUNT 16.5 10^3/uL (4.0-10.0)
[2017-06-09 07:27] LABS: ANION GAP 9 MEQ/L (8-16); BLOOD UREA NITROGEN 57 MG/DL (7-18); CALCIUM LEVEL 8.4 MG/DL (8.5-10.1); CARBON DIOXIDE LEVEL 22 MEQ/L (21-32); CHLORIDE LEVEL 113 MEQ/L (98-107); CREATININE FOR GFR 2.24 MG/DL (0.70-1.30); GLOMERULAR FILTRATION RATE 33.5 (>60); GLUCOSE, FASTING 102 MG/DL (70-100); POTASSIUM SERUM 4.5 MEQ/L (3.5-5.1); SODIUM LEVEL 144 MEQ/L (136-145)
[2017-06-09] MEDS: BUDESONIDE 0.5 MG/2 ML INHALATION SUSPENSION INH ×2 (08:05→19:53)
[2017-06-09] MEDS: AMIODARONE 200 MG TAB (PACERONE) PO ×4 (09:25→21:22)
[2017-06-09] MEDS: CETIRIZINE (ZyrTEC) 10 MG TAB PO (09:27)
[2017-06-09] MEDS: SANTYL OINT 30GM TOP (09:29)
[2017-06-10] MEDS: METOPROLOL TART 50 MG TAB PO ×4 (00:17→18:00)
[2017-06-10] MEDS: IPRATROPIUM 0.5MG/ALBUTEROL 2.5MG INH SOL UD 3ML (DUONEB)(J7620) NEB ×4 (01:29→20:44)
[2017-06-10] MEDS: HEPARIN SOD (PORCINE) 5000 UNITS/ML VIAL SQ ×3 (05:15→21:51)
[2017-06-10 06:23] LABS: BASO # 0.1 10^3/uL (0.0-0.2); BASO % 0.6 % (0.0-1.0); EOS # 0.3 10^3/uL (0.0-0.50); EOS % 1.7 % (0.0-3.0); HEMATOCRIT 34.2 % (42.0-52.0); HEMOGLOBIN 10.7 g/dl (14.0-18.0); IMMATURE GRANULOCYTE % 2.5 % (0-3.0); LYMPH # 2.8 10^3/uL (1.5-4.5); LYMPH % 14.4 % (24.0-44.0); MEAN CORPUSCULAR HEMOGLOBIN 30.8 pg (27.0-33.0); MEAN CORPUSCULAR HGB CONC 31.3 g/dl (32.0-36.5); MEAN CORPUSCULAR VOLUME 98.6 fl (80.0-96.0); MONO # 1.6 10^3/uL (0.0-0.8); MONO % 8.3 % (0.0-5.0); NEUTROPHILS % 72.5 % (36.0-66.0); PLATELET COUNT, AUTOMATED 135 10^3/uL (150-450); RED BLOOD COUNT 3.47 10^6/uL (4.30-6.10); WHITE BLOOD COUNT 19.3 10^3/uL (4.0-10.0)
[2017-06-10 06:51] LABS: ANION GAP 8 MEQ/L (8-16); BLOOD UREA NITROGEN 58 MG/DL (7-18); CALCIUM LEVEL 8.2 MG/DL (8.5-10.1); CARBON DIOXIDE LEVEL 21 MEQ/L (21-32); CHLORIDE LEVEL 111 MEQ/L (98-107); GLOMERULAR FILTRATION RATE 32.5 (>60); GLUCOSE, FASTING 103 MG/DL (70-100); POTASSIUM SERUM 4.7 MEQ/L (3.5-5.1); SODIUM LEVEL 140 MEQ/L (136-145)
[2017-06-10] MEDS: BUDESONIDE 0.5 MG/2 ML INHALATION SUSPENSION INH ×2 (07:05→20:44)
[2017-06-10] MEDS: AMIODARONE 200 MG TAB (PACERONE) PO ×4 (08:47→21:35)
[2017-06-10] MEDS: CETIRIZINE (ZyrTEC) 10 MG TAB PO (08:50)
[2017-06-10] MEDS: SANTYL OINT 30GM TOP (09:00)
[2017-06-10] MEDS: ALBUTEROL SULFATE 2.5 MG/0.5 ML INH NEB SOLN NEB (23:00)
[2017-06-11] MEDS: IPRATROPIUM 0.5MG/ALBUTEROL 2.5MG INH SOL UD 3ML (DUONEB)(J7620) NEB ×4 (01:05→22:08)
[2017-06-11] MEDS: METOPROLOL TART 50 MG TAB PO ×5 (01:41→23:41)
[2017-06-11 04:40] LABS: BASO # 0.1 10^3/uL (0.0-0.2); BASO % 0.4 % (0.0-1.0); EOS # 0.2 10^3/uL (0.0-0.50); EOS % 1.3 % (0.0-3.0); HEMATOCRIT 31.8 % (42.0-52.0); HEMOGLOBIN 10.3 g/dl (14.0-18.0); IMMATURE GRANULOCYTE % 2.5 % (0-3.0); LYMPH # 2.7 10^3/uL (1.5-4.5); LYMPH % 14.2 % (24.0-44.0); MEAN CORPUSCULAR HEMOGLOBIN 31.3 pg (27.0-33.0); MEAN CORPUSCULAR HGB CONC 32.4 g/dl (32.0-36.5); MEAN CORPUSCULAR VOLUME 96.7 fl (80.0-96.0); MONO % 10.2 % (0.0-5.0); NEUTROPHILS # 13.7 10^3/uL (1.8-7.7); NEUTROPHILS % 71.4 % (36.0-66.0); PLATELET COUNT, AUTOMATED 131 10^3/uL (150-450); RED BLOOD COUNT 3.29 10^6/uL (4.30-6.10); WHITE BLOOD COUNT 19.2 10^3/uL (4.0-10.0)
[2017-06-11 05:00] LABS: ANION GAP 9 MEQ/L (8-16); BLOOD UREA NITROGEN 50 MG/DL (7-18); CALCIUM LEVEL 7.9 MG/DL (8.5-10.1); CARBON DIOXIDE LEVEL 21 MEQ/L (21-32); CHLORIDE LEVEL 108 MEQ/L (98-107); CREATININE FOR GFR 2.18 MG/DL (0.70-1.30); GLOMERULAR FILTRATION RATE 34.5 (>60); GLUCOSE, FASTING 103 MG/DL (70-100); SODIUM LEVEL 138 MEQ/L (136-145)
[2017-06-11] MEDS: HEPARIN SOD (PORCINE) 5000 UNITS/ML VIAL SQ ×3 (06:01→22:44)
[2017-06-11] MEDS: BUDESONIDE 0.5 MG/2 ML INHALATION SUSPENSION INH ×2 (07:57→22:07)
[2017-06-11] MEDS: AMIODARONE 200 MG TAB (PACERONE) PO ×4 (09:04→21:00)
[2017-06-11] MEDS: CETIRIZINE (ZyrTEC) 10 MG TAB PO (09:05)
[2017-06-11] MEDS: SANTYL OINT 30GM TOP (10:01)
[2017-06-11 10:17] LABS: ALBUMIN 2.4 GM/DL (3.2-5.2)
[2017-06-11] MEDS ORDERED: SLF 3 ML SYR IV (17:45)
[2017-06-11] MEDS: SLF 3 ML SYR IV (22:00)
[2017-06-12] MEDS: IPRATROPIUM 0.5MG/ALBUTEROL 2.5MG INH SOL UD 3ML (DUONEB)(J7620) NEB ×4 (02:00→20:17)
[2017-06-12 05:25] LABS: IONIZED CALCIUM 4.5 MG/DL (4.5-5.3)
[2017-06-12 05:32] LABS: BASO # 0.1 10^3/uL (0.0-0.2); BASO % 0.6 % (0.0-1.0); EOS # 0.3 10^3/uL (0.0-0.50); EOS % 1.7 % (0.0-3.0); HEMATOCRIT 30.8 % (42.0-52.0); IMMATURE GRANULOCYTE % 3.3 % (0-3.0); LYMPH # 2.8 10^3/uL (1.5-4.5); LYMPH % 16.6 % (24.0-44.0); MEAN CORPUSCULAR HEMOGLOBIN 31.3 pg (27.0-33.0); MEAN CORPUSCULAR HGB CONC 32.5 g/dl (32.0-36.5); MEAN CORPUSCULAR VOLUME 96.3 fl (80.0-96.0); MONO # 1.8 10^3/uL (0.0-0.8); MONO % 10.4 % (0.0-5.0); NEUTROPHILS # 11.3 10^3/uL (1.8-7.7); NEUTROPHILS % 67.4 % (36.0-66.0); PLATELET COUNT, AUTOMATED 125 10^3/uL (150-450); RED CELL DISTRIBUTION WIDTH 15.9 % (11.5-14.5); WHITE BLOOD COUNT 16.8 10^3/uL (4.0-10.0)
[2017-06-12 05:54] LABS: ANION GAP 9 MEQ/L (8-16); BLOOD UREA NITROGEN 45 MG/DL (7-18); CALCIUM LEVEL 7.8 MG/DL (8.5-10.1); CARBON DIOXIDE LEVEL 22 MEQ/L (21-32); CHLORIDE LEVEL 107 MEQ/L (98-107); CREATININE FOR GFR 2.04 MG/DL (0.70-1.30); GLOMERULAR FILTRATION RATE 37.3 (>60); GLUCOSE, FASTING 101 MG/DL (70-100); MAGNESIUM LEVEL 1.9 MG/DL (1.8-2.4); PHOSPHORUS LEVEL 4.3 MG/DL (2.5-4.9); SODIUM LEVEL 138 MEQ/L (136-145)
[2017-06-12] MEDS: SLF 3 ML SYR IV ×3 (06:00→21:49)
[2017-06-12] MEDS: METOPROLOL TART 50 MG TAB PO ×2 (06:00→12:43)
[2017-06-12] MEDS: HEPARIN SOD (PORCINE) 5000 UNITS/ML VIAL SQ ×3 (06:00→21:49)
[2017-06-12] MEDS: AMIODARONE 200 MG TAB (PACERONE) PO ×3 (09:13→17:36)
[2017-06-12] MEDS: CETIRIZINE (ZyrTEC) 10 MG TAB PO (09:13)
[2017-06-12] MEDS: BUDESONIDE 0.5 MG/2 ML INHALATION SUSPENSION INH ×2 (11:17→20:17)
[2017-06-12] MEDS: SANTYL OINT 30GM TOP (12:40)
[2017-06-12] MEDS: METOPROLOL TART 25 MG TABLET PO (21:00)
[2017-06-13] MEDS: IPRATROPIUM 0.5MG/ALBUTEROL 2.5MG INH SOL UD 3ML (DUONEB)(J7620) NEB ×4 (01:39→20:30)
[2017-06-13 05:32] LABS: BASO # 0.1 10^3/uL (0.0-0.2); BASO % 0.7 % (0.0-1.0); EOS # 0.2 10^3/uL (0.0-0.50); EOS % 1.5 % (0.0-3.0); HEMATOCRIT 29.6 % (42.0-52.0); HEMOGLOBIN 9.7 g/dl (14.0-18.0); IMMATURE GRANULOCYTE % 2.6 % (0-3.0); LYMPH # 2.4 10^3/uL (1.5-4.5); LYMPH % 16.3 % (24.0-44.0); MEAN CORPUSCULAR HGB CONC 32.8 g/dl (32.0-36.5); MEAN CORPUSCULAR VOLUME 94.6 fl (80.0-96.0); MONO # 1.4 10^3/uL (0.0-0.8); MONO % 9.4 % (0.0-5.0); NEUTROPHILS # 10.4 10^3/uL (1.8-7.7); NEUTROPHILS % 69.5 % (36.0-66.0); PLATELET COUNT, AUTOMATED 133 10^3/uL (150-450); RED BLOOD COUNT 3.13 10^6/uL (4.30-6.10); RED CELL DISTRIBUTION WIDTH 16.1 % (11.5-14.5); WHITE BLOOD COUNT 14.9 10^3/uL (4.0-10.0)
[2017-06-13 05:57] LABS: ANION GAP 9 MEQ/L (8-16); BLOOD UREA NITROGEN 40 MG/DL (7-18); CARBON DIOXIDE LEVEL 22 MEQ/L (21-32); CHLORIDE LEVEL 106 MEQ/L (98-107); CREATININE FOR GFR 1.86 MG/DL (0.70-1.30); GLOMERULAR FILTRATION RATE 41.5 (>60); GLUCOSE, FASTING 107 MG/DL (70-100); POTASSIUM SERUM 3.5 MEQ/L (3.5-5.1); SODIUM LEVEL 137 MEQ/L (136-145)
[2017-06-13] MEDS: HEPARIN SOD (PORCINE) 5000 UNITS/ML VIAL SQ ×3 (06:09→21:47)
[2017-06-13] MEDS: SLF 3 ML SYR IV ×3 (06:09→21:47)
[2017-06-13] MEDS: BUDESONIDE 0.5 MG/2 ML INHALATION SUSPENSION INH ×2 (07:37→20:30)
[2017-06-13] MEDS: CETIRIZINE (ZyrTEC) 10 MG TAB PO (08:59)
[2017-06-13] MEDS: METOPROLOL TART 25 MG TABLET PO ×2 (09:00→21:47)
[2017-06-13] MEDS: SANTYL OINT 30GM TOP (11:29)
[2017-06-14] MEDS: IPRATROPIUM 0.5MG/ALBUTEROL 2.5MG INH SOL UD 3ML (DUONEB)(J7620) NEB ×4 (01:32→20:10)
[2017-06-14] MEDS: ACETAMINOPHEN 325 MG/10.15 ML UDC GT (04:07)
[2017-06-14 05:31] LABS: BASO # 0.1 10^3/uL (0.0-0.2); BASO % 0.7 % (0.0-1.0); EOS # 0.2 10^3/uL (0.0-0.50); EOS % 1.5 % (0.0-3.0); HEMATOCRIT 29.8 % (42.0-52.0); HEMOGLOBIN 9.7 g/dl (14.0-18.0); IMMATURE GRANULOCYTE % 2.9 % (0-3.0); LYMPH # 2.3 10^3/uL (1.5-4.5); LYMPH % 16.6 % (24.0-44.0); MEAN CORPUSCULAR HGB CONC 32.6 g/dl (32.0-36.5); MEAN CORPUSCULAR VOLUME 95.2 fl (80.0-96.0); MONO # 1.4 10^3/uL (0.0-0.8); MONO % 10.1 % (0.0-5.0); NEUTROPHILS # 9.3 10^3/uL (1.8-7.7); NEUTROPHILS % 68.2 % (36.0-66.0); PLATELET COUNT, AUTOMATED 134 10^3/uL (150-450); RED BLOOD COUNT 3.13 10^6/uL (4.30-6.10); RED CELL DISTRIBUTION WIDTH 15.9 % (11.5-14.5); WHITE BLOOD COUNT 13.6 10^3/uL (4.0-10.0)
[2017-06-14] MEDS: HEPARIN SOD (PORCINE) 5000 UNITS/ML VIAL SQ ×2 (05:55→14:00)
[2017-06-14] MEDS: SLF 3 ML SYR IV ×3 (05:55→21:55)
[2017-06-14 05:57] LABS: ANION GAP 10 MEQ/L (8-16); BLOOD UREA NITROGEN 33 MG/DL (7-18); CALCIUM LEVEL 7.6 MG/DL (8.5-10.1); CARBON DIOXIDE LEVEL 21 MEQ/L (21-32); CHLORIDE LEVEL 106 MEQ/L (98-107); CREATININE FOR GFR 1.84 MG/DL (0.70-1.30); GLUCOSE, FASTING 123 MG/DL (70-100); POTASSIUM SERUM 3.5 MEQ/L (3.5-5.1); SODIUM LEVEL 137 MEQ/L (136-145)
[2017-06-14] MEDS: BUDESONIDE 0.5 MG/2 ML INHALATION SUSPENSION INH ×2 (07:10→20:10)
[2017-06-14] MEDS: D5W 1,000 ML IV (10:00)
[2017-06-14] MEDS: METOPROLOL TART 25 MG TABLET PO ×2 (10:01→21:00)
[2017-06-14] MEDS: CETIRIZINE (ZyrTEC) 10 MG TAB PO (10:02)
[2017-06-14] MEDS: SANTYL OINT 30GM TOP (10:02)
[2017-06-14] MEDS: INFLUENZA QUADRIVALENT PF VACCINE 0.5ML SYRINGE (90686) IM (10:17)
[2017-06-14] MEDS: HEPARIN DRIP 25,000 UNITS in APPROPRIATE DILUENT 1 EA IV (17:53)
[2017-06-14] MEDS: ALBUTEROL SULFATE 2.5 MG/0.5 ML INH NEB SOLN NEB (23:13)
[2017-06-15 00:36] LABS: PARTIAL THROMBOPLASTIN TIME 42.2 SECONDS (26.8-37.9)
[2017-06-15] MEDS: HEPARIN SOD (PORCINE) 5000 UNITS/ML VIAL IV ×3 (00:56→14:50)
[2017-06-15] MEDS: IPRATROPIUM 0.5MG/ALBUTEROL 2.5MG INH SOL UD 3ML (DUONEB)(J7620) NEB ×4 (02:00→19:25)
[2017-06-15] MEDS: SLF 3 ML SYR IV ×3 (05:26→22:00)
[2017-06-15] MEDS: ACETAMINOPHEN 325 MG/10.15 ML UDC GT ×2 (05:41→21:02)
[2017-06-15] MEDS: BUDESONIDE 0.5 MG/2 ML INHALATION SUSPENSION INH ×2 (06:11→19:25)
[2017-06-15 07:27] LABS: BASO # 0.1 10^3/uL (0.0-0.2); BASO % 0.5 % (0.0-1.0); EOS # 0.1 10^3/uL (0.0-0.50); EOS % 0.8 % (0.0-3.0); HEMATOCRIT 29.4 % (42.0-52.0); HEMOGLOBIN 9.5 g/dl (14.0-18.0); IMMATURE GRANULOCYTE % 2.5 % (0-3.0); LYMPH # 2.4 10^3/uL (1.5-4.5); LYMPH % 15.6 % (24.0-44.0); MEAN CORPUSCULAR HEMOGLOBIN 30.7 pg (27.0-33.0); MEAN CORPUSCULAR HGB CONC 32.3 g/dl (32.0-36.5); MEAN CORPUSCULAR VOLUME 95.1 fl (80.0-96.0); MONO # 1.2 10^3/uL (0.0-0.8); MONO % 8.1 % (0.0-5.0); NEUTROPHILS # 10.9 10^3/uL (1.8-7.7); NEUTROPHILS % 72.5 % (36.0-66.0); PLATELET COUNT, AUTOMATED 152 10^3/uL (150-450); RED BLOOD COUNT 3.09 10^6/uL (4.30-6.10); RED CELL DISTRIBUTION WIDTH 16.1 % (11.5-14.5)
[2017-06-15 07:48] LABS: PARTIAL THROMBOPLASTIN TIME 86.6 SECONDS (26.8-37.9)
[2017-06-15] MEDS: CETIRIZINE (ZyrTEC) 10 MG TAB PO (09:19)
[2017-06-15] MEDS: POTASSIUM CHLORIDE 10 MEQ SR TABLET PO (09:22)
[2017-06-15] MEDS: METOPROLOL TART 25 MG TABLET PO ×2 (09:22→20:56)
[2017-06-15] MEDS: HEPARIN DRIP 25,000 UNITS in APPROPRIATE DILUENT 1 EA IV (09:30)
[2017-06-15] MEDS: SANTYL OINT 30GM TOP (13:33)
[2017-06-15 13:51] LABS: PARTIAL THROMBOPLASTIN TIME 37.8 SECONDS (26.8-37.9)
[2017-06-15 21:31] LABS: PARTIAL THROMBOPLASTIN TIME 71.5 SECONDS (26.8-37.9)
[2017-06-16] MEDS: HEPARIN DRIP 25,000 UNITS in APPROPRIATE DILUENT 1 EA IV ×2 (00:22→14:27)
[2017-06-16] MEDS: IPRATROPIUM 0.5MG/ALBUTEROL 2.5MG INH SOL UD 3ML (DUONEB)(J7620) NEB ×4 (01:47→19:20)
[2017-06-16 04:30] LABS: PARTIAL THROMBOPLASTIN TIME 69.8 SECONDS (26.8-37.9)
[2017-06-16] MEDS: SLF 3 ML SYR IV ×3 (06:00→21:41)
[2017-06-16] MEDS: BUDESONIDE 0.5 MG/2 ML INHALATION SUSPENSION INH ×2 (08:10→20:00)
[2017-06-16 08:28] LABS: BASO # 0.1 10^3/uL (0.0-0.2); BASO % 0.5 % (0.0-1.0); EOS # 0.1 10^3/uL (0.0-0.50); EOS % 0.6 % (0.0-3.0); HEMOGLOBIN 10.2 g/dl (14.0-18.0); IMMATURE GRANULOCYTE % 1.7 % (0-3.0); LYMPH # 2.3 10^3/uL (1.5-4.5); LYMPH % 12.5 % (24.0-44.0); MEAN CORPUSCULAR HEMOGLOBIN 30.8 pg (27.0-33.0); MEAN CORPUSCULAR HGB CONC 31.9 g/dl (32.0-36.5); MEAN CORPUSCULAR VOLUME 96.7 fl (80.0-96.0); MONO # 1.4 10^3/uL (0.0-0.8); MONO % 7.7 % (0.0-5.0); PLATELET COUNT, AUTOMATED 162 10^3/uL (150-450); RED BLOOD COUNT 3.31 10^6/uL (4.30-6.10); RED CELL DISTRIBUTION WIDTH 16.1 % (11.5-14.5); WHITE BLOOD COUNT 18.1 10^3/uL (4.0-10.0)
[2017-06-16 09:05] LABS: ALBUMIN 2.3 GM/DL (3.2-5.2); ALBUMIN/GLOBULIN RATIO 0.46 (1.00-1.93); ALKALINE PHOSPHATASE 134 U/L (45-117); ALT/SGPT 123 U/L (12-78); ANION GAP 8 MEQ/L (8-16); AST/SGOT 68 U/L (7-37); BILIRUBIN,TOTAL 0.7 MG/DL (0.2-1.0); BLOOD UREA NITROGEN 24 MG/DL (7-18); CALCIUM LEVEL 7.9 MG/DL (8.5-10.1); CARBON DIOXIDE LEVEL 24 MEQ/L (21-32); CHLORIDE LEVEL 105 MEQ/L (98-107); CREATININE FOR GFR 1.75 MG/DL (0.70-1.30); GLOMERULAR FILTRATION RATE 44.5 (>60); GLUCOSE, FASTING 91 MG/DL (70-100); MAGNESIUM LEVEL 1.7 MG/DL (1.8-2.4); POTASSIUM SERUM 3.8 MEQ/L (3.5-5.1); SODIUM LEVEL 137 MEQ/L (136-145); TOTAL PROTEIN 7.3 GM/DL (6.4-8.2)
[2017-06-16 10:32] LABS: APPEARANCE, URINE CLOUDY (CLEAR); BACTERIA, URINE AUTO 2+ (NEGATIVE); BILIRUBIN, URINE AUTO NEGATIVE (NEGATIVE); BLOOD, URINE BLOOD 2+ (NEGATIVE); COLOR, URINE YELLOW (YELLOW); GLUCOSE, URINE (UA) AUTO NEGATIVE (NEGATIVE); KETONE, URINE AUTO NEGATIVE (NEGATIVE); LEUKOCYTE ESTERASE, URINE AUTO 3+ (NEGATIVE); NITRITE, URINE AUTO NEGATIVE (NEGATIVE); PROTEIN, URINE AUTO NEGATIVE (NEGATIVE); RBC, URINE AUTO 46 /HPF (0-3); SPECIFIC GRAVITY URINE AUTO 1.005 (1.002-1.035); SQUAMOUS EPITHELIAL CELL UR AU 0 /HPF (0-6); UROBILINOGEN, URINE AUTO 0.2 mg/dL (0.0-2.0); WBC, URINE AUTO 167 /HPF (0-3)
[2017-06-16] MEDS: CETIRIZINE (ZyrTEC) 10 MG TAB PO (10:43)
[2017-06-16] MEDS: METOPROLOL TART 25 MG TABLET PO ×2 (10:44→21:36)
[2017-06-16] MEDS: PIPERACILLIN/TAZOBACTAM SOD 2.25 GM in APPROPRIATE DILUENT 1 EA IV ×3 (11:26→21:36)
[2017-06-16] MEDS: SANTYL OINT 30GM TOP (13:09)
[2017-06-17] MEDS: IPRATROPIUM 0.5MG/ALBUTEROL 2.5MG INH SOL UD 3ML (DUONEB)(J7620) NEB ×4 (00:45→19:52)
[2017-06-17] MEDS: ACETAMINOPHEN 325 MG/10.15 ML UDC GT ×2 (01:31→23:48)
[2017-06-17] MEDS: NS 1,000 ML IV (01:43)
[2017-06-17] MEDS: PIPERACILLIN/TAZOBACTAM SOD 2.25 GM in APPROPRIATE DILUENT 1 EA IV ×4 (04:31→21:00)
[2017-06-17 05:30] LABS: PARTIAL THROMBOPLASTIN TIME 60.8 SECONDS (26.8-37.9)
[2017-06-17] MEDS: SLF 3 ML SYR IV ×3 (06:00→21:07)
[2017-06-17] MEDS: HEPARIN DRIP 25,000 UNITS in APPROPRIATE DILUENT 1 EA IV ×2 (06:02→18:16)
[2017-06-17] MEDS: BUDESONIDE 0.5 MG/2 ML INHALATION SUSPENSION INH ×2 (07:23→19:52)
[2017-06-17 08:05] LABS: BASO # 0.1 10^3/uL (0.0-0.2); BASO % 0.3 % (0.0-1.0); EOS # 0.1 10^3/uL (0.0-0.50); EOS % 0.8 % (0.0-3.0); HEMATOCRIT 28.1 % (42.0-52.0); IMMATURE GRANULOCYTE % 1.6 % (0-3.0); LYMPH # 2.5 10^3/uL (1.5-4.5); LYMPH % 15.7 % (24.0-44.0); MEAN CORPUSCULAR VOLUME 96.9 fl (80.0-96.0); MONO # 1.2 10^3/uL (0.0-0.8); MONO % 7.9 % (0.0-5.0); NEUTROPHILS # 11.6 10^3/uL (1.8-7.7); NEUTROPHILS % 73.7 % (36.0-66.0); PLATELET COUNT, AUTOMATED 173 10^3/uL (150-450); RED CELL DISTRIBUTION WIDTH 15.9 % (11.5-14.5); WHITE BLOOD COUNT 15.7 10^3/uL (4.0-10.0)
[2017-06-17 08:09] LABS: ALBUMIN/GLOBULIN RATIO 0.39 (1.00-1.93); ALKALINE PHOSPHATASE 115 U/L (45-117); ALT/SGPT 105 U/L (12-78); ANION GAP 7 MEQ/L (8-16); AST/SGOT 58 U/L (7-37); BILIRUBIN,TOTAL 0.5 MG/DL (0.2-1.0); BLOOD UREA NITROGEN 30 MG/DL (7-18); CALCIUM LEVEL 7.9 MG/DL (8.5-10.1); CARBON DIOXIDE LEVEL 23 MEQ/L (21-32); CHLORIDE LEVEL 106 MEQ/L (98-107); GLOMERULAR FILTRATION RATE 49.4 (>60); GLUCOSE, FASTING 94 MG/DL (70-100); MAGNESIUM LEVEL 1.8 MG/DL (1.8-2.4); POTASSIUM SERUM 3.6 MEQ/L (3.5-5.1); SODIUM LEVEL 136 MEQ/L (136-145); TOTAL PROTEIN 7.1 GM/DL (6.4-8.2)
[2017-06-17] MEDS: METOPROLOL TART 25 MG TABLET PO ×2 (08:49→20:52)
[2017-06-17] MEDS: SANTYL OINT 30GM TOP (08:50)
[2017-06-17] MEDS: CETIRIZINE (ZyrTEC) 10 MG TAB PO (08:50)
[2017-06-17 11:59] LABS: PARTIAL THROMBOPLASTIN TIME 55.3 SECONDS (26.8-37.9)
[2017-06-17] MEDS: HEPARIN SOD (PORCINE) 5000 UNITS/ML VIAL IV (12:46)
[2017-06-17 18:57] LABS: PARTIAL THROMBOPLASTIN TIME > 240.0 SECONDS (26.8-37.9)
[2017-06-18] MEDS: IPRATROPIUM 0.5MG/ALBUTEROL 2.5MG INH SOL UD 3ML (DUONEB)(J7620) NEB ×4 (02:45→20:29)
[2017-06-18] MEDS: PIPERACILLIN/TAZOBACTAM SOD 2.25 GM in APPROPRIATE DILUENT 1 EA IV ×4 (03:00→21:23)
[2017-06-18 03:12] LABS: HEMATOCRIT 27.4 % (42.0-52.0); HEMOGLOBIN 8.9 g/dl (14.0-18.0); MEAN CORPUSCULAR HEMOGLOBIN 31.1 pg (27.0-33.0); MEAN CORPUSCULAR HGB CONC 32.5 g/dl (32.0-36.5); MEAN CORPUSCULAR VOLUME 95.8 fl (80.0-96.0); PLATELET COUNT, AUTOMATED 178 10^3/uL (150-450); RED BLOOD COUNT 2.86 10^6/uL (4.30-6.10); RED CELL DISTRIBUTION WIDTH 15.9 % (11.5-14.5); WHITE BLOOD COUNT 13.1 10^3/uL (4.0-10.0)
[2017-06-18 03:23] LABS: PARTIAL THROMBOPLASTIN TIME 64.1 SECONDS (26.8-37.9)
[2017-06-18 03:34] LABS: ANION GAP 7 MEQ/L (8-16); BLOOD UREA NITROGEN 23 MG/DL (7-18); CALCIUM LEVEL 7.5 MG/DL (8.5-10.1); CARBON DIOXIDE LEVEL 25 MEQ/L (21-32); CHLORIDE LEVEL 106 MEQ/L (98-107); GLOMERULAR FILTRATION RATE 53.2 (>60); GLUCOSE, FASTING 119 MG/DL (70-100); MAGNESIUM LEVEL 1.8 MG/DL (1.8-2.4); POTASSIUM SERUM 3.7 MEQ/L (3.5-5.1); SODIUM LEVEL 138 MEQ/L (136-145)
[2017-06-18] MEDS: HEPARIN SOD (PORCINE) 5000 UNITS/ML VIAL IV ×2 (04:43→13:34)
[2017-06-18] MEDS: SLF 3 ML SYR IV ×3 (06:00→21:24)
[2017-06-18] MEDS: BUDESONIDE 0.5 MG/2 ML INHALATION SUSPENSION INH ×2 (06:59→20:29)
[2017-06-18] MEDS: METOPROLOL TART 25 MG TABLET PO ×2 (09:00→21:24)
[2017-06-18] MEDS: CETIRIZINE (ZyrTEC) 10 MG TAB PO (09:10)
[2017-06-18] MEDS: SANTYL OINT 30GM TOP (09:11)
[2017-06-18 11:29] LABS: PARTIAL THROMBOPLASTIN TIME 59.9 SECONDS (26.8-37.9)
[2017-06-18] MEDS: HEPARIN DRIP 25,000 UNITS in APPROPRIATE DILUENT 1 EA IV (17:28)
[2017-06-18 21:06] LABS: PARTIAL THROMBOPLASTIN TIME 87.3 SECONDS (26.8-37.9)
[2017-06-19] MEDS: IPRATROPIUM 0.5MG/ALBUTEROL 2.5MG INH SOL UD 3ML (DUONEB)(J7620) NEB ×4 (01:41→19:54)
[2017-06-19 02:22] LABS: PARTIAL THROMBOPLASTIN TIME 91.3 SECONDS (26.8-37.9)
[2017-06-19] MEDS: PIPERACILLIN/TAZOBACTAM SOD 3.375 GM in APPROPRIATE DILUENT 1 EA IV ×4 (04:31→21:04)
[2017-06-19] MEDS: HEPARIN DRIP 25,000 UNITS in APPROPRIATE DILUENT 1 EA IV (04:33)
[2017-06-19] MEDS: SLF 3 ML SYR IV ×3 (05:45→21:04)
[2017-06-19 05:56] LABS: HEMOGLOBIN 8.9 g/dl (14.0-18.0); MEAN CORPUSCULAR HEMOGLOBIN 30.3 pg (27.0-33.0); MEAN CORPUSCULAR HGB CONC 31.8 g/dl (32.0-36.5); MEAN CORPUSCULAR VOLUME 95.2 fl (80.0-96.0); PLATELET COUNT, AUTOMATED 204 10^3/uL (150-450); RED BLOOD COUNT 2.94 10^6/uL (4.30-6.10); RED CELL DISTRIBUTION WIDTH 15.6 % (11.5-14.5); WHITE BLOOD COUNT 12.9 10^3/uL (4.0-10.0)
[2017-06-19 06:15] LABS: ANION GAP 6 MEQ/L (8-16); BLOOD UREA NITROGEN 17 MG/DL (7-18); CARBON DIOXIDE LEVEL 28 MEQ/L (21-32); CHLORIDE LEVEL 104 MEQ/L (98-107); CREATININE FOR GFR 1.44 MG/DL (0.70-1.30); GLOMERULAR FILTRATION RATE 55.7 (>60); GLUCOSE, FASTING 99 MG/DL (70-100); MAGNESIUM LEVEL 1.7 MG/DL (1.8-2.4); POTASSIUM SERUM 3.6 MEQ/L (3.5-5.1); SODIUM LEVEL 138 MEQ/L (136-145)
[2017-06-19] MEDS: BUDESONIDE 0.5 MG/2 ML INHALATION SUSPENSION INH ×2 (07:39→19:54)
[2017-06-19] MEDS: CETIRIZINE (ZyrTEC) 10 MG TAB PO (09:46)
[2017-06-19] MEDS: MAGNESIUM OXIDE 400 MG TAB (MAG-OX) PO ×2 (09:46→21:04)
[2017-06-19] MEDS: METOPROLOL TART 25 MG TABLET PO ×2 (09:46→20:50)
[2017-06-19] MEDS: RIVAROXABAN 15 MG TAB (XARELTO) PO (17:26)
[2017-06-19] MEDS: ALBUTEROL SULFATE 2.5 MG/0.5 ML INH NEB SOLN NEB (22:06)
[2017-06-20] MEDS: IPRATROPIUM 0.5MG/ALBUTEROL 2.5MG INH SOL UD 3ML (DUONEB)(J7620) NEB ×4 (02:03→19:27)
[2017-06-20] MEDS: PIPERACILLIN/TAZOBACTAM SOD 3.375 GM in APPROPRIATE DILUENT 1 EA IV ×4 (03:47→21:31)
[2017-06-20] MEDS: SLF 3 ML SYR IV ×3 (03:48→21:31)
[2017-06-20 05:51] LABS: HEMATOCRIT 28.2 % (42.0-52.0); MEAN CORPUSCULAR HEMOGLOBIN 30.4 pg (27.0-33.0); MEAN CORPUSCULAR HGB CONC 31.9 g/dl (32.0-36.5); MEAN CORPUSCULAR VOLUME 95.3 fl (80.0-96.0); PLATELET COUNT, AUTOMATED 217 10^3/uL (150-450); RED BLOOD COUNT 2.96 10^6/uL (4.30-6.10); RED CELL DISTRIBUTION WIDTH 15.9 % (11.5-14.5); WHITE BLOOD COUNT 14.7 10^3/uL (4.0-10.0)
[2017-06-20 06:16] LABS: ANION GAP 7 MEQ/L (8-16); BLOOD UREA NITROGEN 16 MG/DL (7-18); CALCIUM LEVEL 8.4 MG/DL (8.5-10.1); CARBON DIOXIDE LEVEL 27 MEQ/L (21-32); CHLORIDE LEVEL 104 MEQ/L (98-107); CREATININE FOR GFR 1.36 MG/DL (0.70-1.30); GLOMERULAR FILTRATION RATE 59.5 (>60); GLUCOSE, FASTING 106 MG/DL (70-100); MAGNESIUM LEVEL 1.9 MG/DL (1.8-2.4); POTASSIUM SERUM 3.8 MEQ/L (3.5-5.1); SODIUM LEVEL 138 MEQ/L (136-145)
[2017-06-20] MEDS: BUDESONIDE 0.5 MG/2 ML INHALATION SUSPENSION INH ×2 (07:28→19:27)
[2017-06-20] MEDS: MAGNESIUM OXIDE 400 MG TAB (MAG-OX) PO ×2 (09:10→21:00)
[2017-06-20] MEDS: METOPROLOL TART 25 MG TABLET PO ×2 (09:10→21:00)
[2017-06-20] MEDS: RIVAROXABAN 15 MG TAB (XARELTO) PO ×2 (09:10→17:53)
[2017-06-20] MEDS: CETIRIZINE (ZyrTEC) 10 MG TAB PO (09:11)
[2017-06-20] MEDS: SANTYL OINT 30GM TOP (17:53)
[2017-06-21] MEDS: IPRATROPIUM 0.5MG/ALBUTEROL 2.5MG INH SOL UD 3ML (DUONEB)(J7620) NEB ×4 (01:59→20:02)
[2017-06-21] MEDS: PIPERACILLIN/TAZOBACTAM SOD 3.375 GM in APPROPRIATE DILUENT 1 EA IV ×4 (04:00→20:55)
[2017-06-21] MEDS: SLF 3 ML SYR IV ×3 (04:06→20:56)
[2017-06-21 05:36] LABS: HEMATOCRIT 27.3 % (42.0-52.0); HEMOGLOBIN 8.5 g/dl (14.0-18.0); MEAN CORPUSCULAR HEMOGLOBIN 29.9 pg (27.0-33.0); MEAN CORPUSCULAR HGB CONC 31.1 g/dl (32.0-36.5); MEAN CORPUSCULAR VOLUME 96.1 fl (80.0-96.0); PLATELET COUNT, AUTOMATED 232 10^3/uL (150-450); RED BLOOD COUNT 2.84 10^6/uL (4.30-6.10); RED CELL DISTRIBUTION WIDTH 15.8 % (11.5-14.5); WHITE BLOOD COUNT 11.2 10^3/uL (4.0-10.0)
[2017-06-21 05:47] LABS: ANION GAP 6 MEQ/L (8-16); BLOOD UREA NITROGEN 16 MG/DL (7-18); CARBON DIOXIDE LEVEL 28 MEQ/L (21-32); CHLORIDE LEVEL 105 MEQ/L (98-107); GLOMERULAR FILTRATION RATE > 60.0 (>60); GLUCOSE, FASTING 125 MG/DL (70-100); MAGNESIUM LEVEL 1.8 MG/DL (1.8-2.4); POTASSIUM SERUM 3.8 MEQ/L (3.5-5.1); SODIUM LEVEL 139 MEQ/L (136-145)
[2017-06-21] MEDS: BUDESONIDE 0.5 MG/2 ML INHALATION SUSPENSION INH ×2 (07:12→20:02)
[2017-06-21] MEDS: METOPROLOL TART 25 MG TABLET PO ×2 (08:52→20:56)
[2017-06-21] MEDS: MAGNESIUM OXIDE 400 MG TAB (MAG-OX) PO ×2 (08:52→20:56)
[2017-06-21] MEDS: RIVAROXABAN 15 MG TAB (XARELTO) PO ×2 (08:52→18:01)
[2017-06-21] MEDS: CETIRIZINE (ZyrTEC) 10 MG TAB PO (08:53)
[2017-06-21] MEDS: SANTYL OINT 30GM TOP (08:53)
[2017-06-22] MEDS: IPRATROPIUM 0.5MG/ALBUTEROL 2.5MG INH SOL UD 3ML (DUONEB)(J7620) NEB ×3 (01:46→13:17)
[2017-06-22] MEDS: SLF 3 ML SYR IV ×2 (05:14→14:00)
[2017-06-22] MEDS: LevoFLOXacin 750 MG TABLET PO (05:14)
[2017-06-22 05:56] LABS: HEMATOCRIT 28.7 % (42.0-52.0); HEMOGLOBIN 8.9 g/dl (14.0-18.0); MEAN CORPUSCULAR HEMOGLOBIN 30.1 pg (27.0-33.0); PLATELET COUNT, AUTOMATED 228 10^3/uL (150-450); RED BLOOD COUNT 2.96 10^6/uL (4.30-6.10); RED CELL DISTRIBUTION WIDTH 15.8 % (11.5-14.5); WHITE BLOOD COUNT 11.2 10^3/uL (4.0-10.0)
[2017-06-22 06:21] LABS: ANION GAP 7 MEQ/L (8-16); BLOOD UREA NITROGEN 14 MG/DL (7-18); CARBON DIOXIDE LEVEL 27 MEQ/L (21-32); CHLORIDE LEVEL 103 MEQ/L (98-107); CREATININE FOR GFR 1.24 MG/DL (0.70-1.30); GLOMERULAR FILTRATION RATE > 60.0 (>60); GLUCOSE, FASTING 111 MG/DL (70-100); MAGNESIUM LEVEL 1.8 MG/DL (1.8-2.4); POTASSIUM SERUM 3.5 MEQ/L (3.5-5.1); SODIUM LEVEL 137 MEQ/L (136-145)
[2017-06-22] MEDS: BUDESONIDE 0.5 MG/2 ML INHALATION SUSPENSION INH (07:27)
[2017-06-22] MEDS: RIVAROXABAN 15 MG TAB (XARELTO) PO (09:26)
[2017-06-22] MEDS: MAGNESIUM OXIDE 400 MG TAB (MAG-OX) PO (09:26)
[2017-06-22] MEDS: SANTYL OINT 30GM TOP (09:26)
[2017-06-22] MEDS: CETIRIZINE (ZyrTEC) 10 MG TAB PO (09:26)
[2017-06-22] MEDS: METOPROLOL TART 25 MG TABLET PO (09:26)
[2017-06-22 09:35] LABS: C REACTIVE PROTEIN QUANTITATIV 6.43 MG/DL (0.00-0.30)
== END 2017-06-22 15:29 | disposition home health service (06) | DRG 4 ==
LOC: M PCU 06-08 16:24 → M ED 23:27 → M ED INP 05-18 01:00 → M ICU 05-18 03:30
PROC: 0BH17EZ Insertion of Endotracheal Airway into Trachea, Via Natural or Artificial Opening (ICD-10-PCS; principal; 2017-05-18 01:33)
PROC: 0BCJ8ZZ Extirpation of Matter from Left Lower Lung Lobe, Via Natural or Artificial Opening Endoscopic (ICD-10-PCS; 2017-05-18 01:33)
PROC: 0B9M8ZZ Drainage of Bilateral Lungs, Via Natural or Artificial Opening Endoscopic (ICD-10-PCS; 2017-05-18 01:33)
PROC: 0B114F4 Bypass Trachea to Cutaneous with Tracheostomy Device, Percutaneous Endoscopic Approach (ICD-10-PCS; 2017-05-18 01:33)
PROC: 0BJ08ZZ Inspection of Tracheobronchial Tree, Via Natural or Artificial Opening Endoscopic (ICD-10-PCS; 2017-05-18 01:33)
PROC: 5A1955Z Respiratory Ventilation, Greater than 96 Consecutive Hours (ICD-10-PCS; 2017-05-18 01:33)
PROC: 0B918ZZ Drainage of Trachea, Via Natural or Artificial Opening Endoscopic (ICD-10-PCS; 2017-05-18 01:33)
PROC: 02HV33Z Insertion of Infusion Device into Superior Vena Cava, Percutaneous Approach (ICD-10-PCS; 2017-05-18 01:33)
PROC: 30253N1 (ICD-10-PCS; 2017-05-18 01:33)
PROC: 30253K1 (ICD-10-PCS; 2017-05-18 01:33)
PROC: 30253R1 (ICD-10-PCS; 2017-05-18 01:33)
PROC: 04V03DZ Restriction of Abdominal Aorta with Intraluminal Device, Percutaneous Approach (ICD-10-PCS; 2017-05-18 01:33)
PROC: 0HB6XZZ Excision of Back Skin, External Approach (ICD-10-PCS; 2017-05-18 01:33)
DX: I71.3 Abdominal aortic aneurysm, ruptured (principal); R57.8 Other shock; K72.00 Acute and subacute hepatic failure without coma; J69.0 Pneumonitis due to inhalation of food and vomit; G62.81 Critical illness polyneuropathy; A41.9 Sepsis, unspecified organism; G93.41 Metabolic encephalopathy; N17.9 Acute kidney failure, unspecified; E87.0 Hyperosmolality and hypernatremia; L89.320 Pressure ulcer of left buttock, unstageable; J96.01 Acute respiratory failure with hypoxia; E46 Unspecified protein-calorie malnutrition; I82.412 Acute embolism and thrombosis of left femoral vein; D69.6 Thrombocytopenia, unspecified; E87.2 Acidosis; I47.1 Supraventricular tachycardia; J43.9 Emphysema, unspecified; B96.20 Unspecified Escherichia coli [E. coli] as the cause of diseases classified elsewhere; G47.33 Obstructive sleep apnea (adult) (pediatric); F17.210 Nicotine dependence, cigarettes, uncomplicated; E83.41 Hypermagnesemia; E87.6 Hypokalemia; J98.11 Atelectasis; D64.9 Anemia, unspecified; E83.39 Other disorders of phosphorus metabolism; I48.91 Unspecified atrial fibrillation; I48.92 Unspecified atrial flutter; I11.9 Hypertensive heart disease without heart failure; Z79.891 Long term (current) use of opiate analgesic; Z79.82 Long term (current) use of aspirin; Z79.899 Other long term (current) drug therapy

== ENCOUNTER 2017-06-25 16:21 | Emergency (ER) | payer MEDICAID, OTHER ==
[2017-06-25 19:36] LABS: KETONE, URINE AUTO RFX NEGATIVE (NEGATIVE); LEUKOCYTE ESTERASE UR AUTO RFX NEGATIVE (NEGATIVE); NITRITE, URINE AUTO RFX NEGATIVE (NEGATIVE); RBC, URINE AUTO RFX 5 /HPF (0-3); SPECIFIC GRAVITY UR AUTO RFX 1.006 (1.002-1.035); SQUAM EPITHELIAL CELL UR AURFX 0 /HPF (0-6); WBC, URINE AUTO RFX 4 /HPF (0-3)
[2017-06-25 20:04] LABS: BASO # 0.1 10^3/uL (0.0-0.2); BASO % 0.5 % (0.0-1.0); EOS # 0.3 10^3/uL (0.0-0.50); EOS % 2.5 % (0.0-3.0); HEMATOCRIT 33.4 % (42.0-52.0); HEMOGLOBIN 10.8 g/dl (14.0-18.0); IMMATURE GRANULOCYTE % 3.8 % (0-3.0); LYMPH # 2.2 10^3/uL (1.5-4.5); MEAN CORPUSCULAR HEMOGLOBIN 31.3 pg (27.0-33.0); MEAN CORPUSCULAR HGB CONC 32.3 g/dl (32.0-36.5); MEAN CORPUSCULAR VOLUME 96.8 fl (80.0-96.0); MONO # 0.8 10^3/uL (0.0-0.8); MONO % 7.4 % (0.0-5.0); NEUTROPHILS # 7.2 10^3/uL (1.8-7.7); NEUTROPHILS % 65.8 % (36.0-66.0); PLATELET COUNT, AUTOMATED 223 10^3/uL (150-450); RED BLOOD COUNT 3.45 10^6/uL (4.30-6.10); RED CELL DISTRIBUTION WIDTH 15.9 % (11.5-14.5); WHITE BLOOD COUNT 10.9 10^3/uL (4.0-10.0)
[2017-06-25 20:20] LABS: INR 2.03; PROTHROMBIN TIME 23.7 SECONDS (12.4-14.5)
[2017-06-25 20:21] LABS: PARTIAL THROMBOPLASTIN TIME 59.6 SECONDS (26.8-37.9)
[2017-06-25 20:27] LABS: LACTIC ACID SEPSIS PROTOCOL 1.7 MMOL/L (0.4-2.0)
[2017-06-25 20:27] LABS: ALBUMIN 2.5 GM/DL (3.2-5.2); ALBUMIN/GLOBULIN RATIO 0.43 (1.00-1.93); ALKALINE PHOSPHATASE 115 U/L (45-117); ALT/SGPT 69 U/L (12-78); ANION GAP 8 MEQ/L (8-16); AST/SGOT 37 U/L (7-37); BILIRUBIN,DIRECT 0.2 MG/DL (0.0-0.2); BILIRUBIN,TOTAL 0.3 MG/DL (0.2-1.0); BLOOD UREA NITROGEN 17 MG/DL (7-18); CALCIUM LEVEL 8.4 MG/DL (8.5-10.1); CARBON DIOXIDE LEVEL 28 MEQ/L (21-32); CHLORIDE LEVEL 102 MEQ/L (98-107); CREATININE FOR GFR 1.14 MG/DL (0.70-1.30); GLOMERULAR FILTRATION RATE > 60.0 (>60); GLUCOSE, FASTING 93 MG/DL (70-100); POTASSIUM SERUM 4.1 MEQ/L (3.5-5.1); SODIUM LEVEL 138 MEQ/L (136-145); TOTAL PROTEIN 8.3 GM/DL (6.4-8.2)
== END 2017-06-25 22:56 | disposition home or self-care (01) ==
LOC: M ED 16:21
DX: I82.402 Acute embolism and thrombosis of unspecified deep veins of left lower extremity (principal); I48.91 Unspecified atrial fibrillation; Z86.79 Personal history of other diseases of the circulatory system; R51 Headache; G47.30 Sleep apnea, unspecified; Z87.891 Personal history of nicotine dependence; Z79.82 Long term (current) use of aspirin; Z79.899 Other long term (current) drug therapy; Z88.6 Allergy status to analgesic agent; Z88.5 Allergy status to narcotic agent
CPT/HCPCS: 93971

== ENCOUNTER → 2017-07-23 | Outpatient (CLI) | payer OTHER, MEDICAID | LOC: M RAD 07:51 | DX: I71.3 Abdominal aortic aneurysm, ruptured (principal) | CPT/HCPCS: 76775 ==

== ENCOUNTER → 2017-08-26 | Outpatient (CLI) | payer OTHER | LOC: M SLEEP 20:00 | DX: G47.30 Sleep apnea, unspecified (principal) | CPT/HCPCS: 95811 ==

== ENCOUNTER → 2017-09-24 | Outpatient (CLI) | payer OTHER | LOC: M RAD 10:10 | DX: I70.203 Unspecified atherosclerosis of native arteries of extremities, bilateral legs (principal); I82.432 Acute embolism and thrombosis of left popliteal vein | CPT/HCPCS: 93923 ==

== ENCOUNTER → 2018-05-28 | Outpatient (CLI) | payer OTHER ==
[~2018-05-28] MED LIST: ASPI1CHW2 PO; ASPI1TAB15 PO; ATEN25TA PO; GLUCTAB6 PO; LEVA750T7 PO; METO1TAB87 PO; NORCOTAB PO; ROBA500T PO; SANT250O8 TOP; XARE15TA PO
--- NOTE | 2018-05-28 08:46 | REP ---
LEFT LOWER EXTREMITY DOPPLER VENOUS ULTRASOUND: 05/28/2018. 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 Comparison: 06/25/2017. Findings. Study again shows nonocclusive DVT from the groin to the popliteus Color flow is seen within. There is some respiratory variation and augmented flow but incomplete compressibility of the deep venous system again noted. Impression: 1. Study positive for deep venous thrombosis from the inguinal region with the common femoral vein through the popliteal fossa. The vessel loops are incompletely compressible but color flow is maintained. This represents chronic DVT. I do not see significant interval change. Electronically Signed by Jeffrey Waggoner MD 05/28/2018 05:43 P
--- NOTE | 2018-05-29 06:17 | REP ---
Clinical: Ruptured abdominal aortic aneurysm. Comparison: 07/23/2017 Technique: Real time liu scale ultrasound examination using curved array transducer. Findings: Examination is severely limited due to body habitus and overlying bowel gas. The visualized proximal aorta measures 3.0 x 3.6 cm. The mid to distal aorta measures between 6.2 x 8.4 cm and 5.3 x 6.6 cm, respectively. A 6.6 x 4.9 x 6.0 cm fluid collection along the right side of the distal aorta is identified and has decreased from prior examination. Aorto iliac stent extends into the right common iliac artery. Impression: Stented abdominal aortic aneurysm. Decreased periaortic fluid collection. Electronically Signed by Diomedes Perez MD 05/29/2018 06:07 A
== END ==
LOC: M RAD 07:17
PROVIDERS: ATTEND Surgery Vascular Surgery
DX: I82.502 Chronic embolism and thrombosis of unspecified deep veins of left lower extremity (principal)

== ENCOUNTER 2018-12-09 09:03 | Emergency (ER) | payer OTHER ==
[~2018-12-09] VITALS: Ht 188 cm; Wt 126.0 kg
[~2018-12-09 09:03] MED LIST changes: +HYDR-3715 PO; -NORCOTAB PO
[2018-12-09] MEDS ORDERED: ATOR1TAB21 (09:12)
[2018-12-09] MEDS ORDERED: LISI10TA15 (09:12)
[2018-12-09] MEDS ORDERED: XARE20TA (09:12)
[2018-12-09] MEDS ORDERED: ISOVUE-370 76% 100ML VIAL (Q9967) As Ordered ONE (09:34)
[2018-12-09 10:04] LABS: BASO # 0.1 10^3/uL (0.0-0.2); BASO % 0.3 % (0.0-1.0); EOS # 0.1 10^3/uL (0.0-0.5); EOS % 0.4 % (0.0-3.0); HEMATOCRIT 44.6 % (42.0-52.0); HEMOGLOBIN 15.4 g/dl (13.5-17.5); LYMPH # 2.9 10^3/uL (1.5-5.0); LYMPH % 15.9 % (24.0-44.0); MEAN CORPUSCULAR HEMOGLOBIN 33.8 pg (27.0-33.0); MEAN CORPUSCULAR HGB CONC 34.5 g/dl (32.0-36.5); MONO # 1.8 10^3/uL (0.0-0.8); MONO % 9.9 % (0.0-5.0); NEUTROPHILS # 13.2 10^3/uL (1.5-8.5); NEUTROPHILS % 72.8 % (36.0-66.0); PLATELET COUNT, AUTOMATED 144 10^3/uL (150-450); RED BLOOD COUNT 4.55 10^6/uL (4.30-6.10); WHITE BLOOD COUNT 18.1 10^3/uL (4.0-10.0)
[2018-12-09 10:09] LABS: ALBUMIN 3.5 GM/DL (3.2-5.2); ALT/SGPT 73 U/L (12-78); BILIRUBIN,DIRECT 0.3 MG/DL (0.0-0.2); BLOOD UREA NITROGEN 17 MG/DL (7-18); CALCIUM LEVEL 8.8 MG/DL (8.5-10.1); CARBON DIOXIDE LEVEL 23 MEQ/L (21-32); CHLORIDE LEVEL 106 MEQ/L (98-107); CREATININE FOR GFR 1.16 MG/DL (0.70-1.30); GLOMERULAR FILTRATION RATE > 60.0 (>60); GLUCOSE, FASTING 181 MG/DL (70-100); LIPASE 116 U/L (73-393); POTASSIUM SERUM 3.8 MEQ/L (3.5-5.1); SODIUM LEVEL 137 MEQ/L (136-145); TOTAL PROTEIN 7.9 GM/DL (6.4-8.2)
[2018-12-09] MEDS: NS 1,000 ML IV ONE (10:12)
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
[2018-12-09] MEDS: CIPROFLOXACIN 500 MG TAB PO ONE (10:43)
[2018-12-09] MEDS: metroNIDAZOLE (FLAGYL) 500 MG TAB PO ONE (10:43)
[2018-12-09 11:16] VITALS: BP 109/70
[2018-12-09] MEDS ORDERED: CIPR-249 PO (11:23)
[2018-12-09] MEDS ORDERED: FLAG500T PO (11:23)
== END 2018-12-09 11:43 | disposition home or self-care (01) ==
LOC: M ED 09:03
DX: K57.32 Diverticulitis of large intestine without perforation or abscess without bleeding (principal); Z79.899 Other long term (current) drug therapy; Z79.82 Long term (current) use of aspirin
CPT/HCPCS: 36415; 74174; 80048; 80076; 81001; 83690; 85025; 86850; 86900; 86901; 93041; 99285; Q9967

== ENCOUNTER → 2019-03-04 | Outpatient (CLI) | payer OTHER ==
[~2019-03-04] MED LIST changes: +ATOR1TAB21; +CIPR-249 PO; +FLAG500T PO; +LISI10TA15; +XARE20TA
--- NOTE | 2019-03-04 08:02 | REP ---
Clinical: History of DVT . Comparison: 05/28/2018 Technique: Mejia scale and color Doppler evaluation of the left lower extremity using linear high frequency transducer. Findings: Ultrasound examination of the left lower extremity deep venous structures from the common femoral vein to the popliteal vein demonstrates chronic nonocclusive thrombus from the superficial femoral vein through popliteal vein. Thrombus may be slightly decreased when compared with prior examination. Impression: Continued evidence for chronic nonocclusive thrombus involving the femoral through popliteal vein. Electronically Signed by Diomedes Perez MD 03/04/2019 07:54 A
--- NOTE | 2019-03-04 08:07 | REP ---
Clinical: History of ruptured abdominal aortic aneurysm. Comparison: 05/28/2018 Technique: Real time liu scale ultrasound examination using curved array transducer. Findings: Evaluation is significantly limited due to body habitus and overlying bowel gas. The patient is noted to be status post endoluminal aortic stenting for prior ruptured aneurysm. There is no obvious evidence for leak. A known hematoma/fluid collection along the right distal aorta currently measures approximately 5.0 x 3.9 x 3.4 cm and is decreased from prior examination. Proximal aorta 2.5 x 3.2 cm. Mid aorta (renal artery level) not visualized Mid aorta 3.6 x 3.4 cm. Distal aorta 3.6 x 5.3 cm. Right common iliac artery 2.0 cm maximal diameter. Left common iliac artery 2.0 cm maximal diameter. Impression: 1. Limited examination demonstrating satisfactory aortoiliac stent placement without evidence for endoleak. 2. The right para-aortic hematoma/fluid collection is decreased when compared to prior examination. Electronically Signed by Diomedes Perez MD 03/04/2019 07:59 A
== END ==
LOC: M RAD 06:30
PROVIDERS: ATTEND Physician Assistant
DX: I82.502 Chronic embolism and thrombosis of unspecified deep veins of left lower extremity (principal); I71.3 Abdominal aortic aneurysm, ruptured

== ENCOUNTER → 2019-04-03 | Outpatient (CLI) | payer OTHER ==
[~2019-04-03] MED LIST changes: +ISOVUE-370 76% 100ML VIAL (Q9967) As Ordered ONE
--- NOTE | 2019-04-03 09:10 | REP ---
Clinical: Follow up abdominal aneurysm stenting. Technique: Axial contrast enhanced images from the lung bases to the pubic symphysis using angiographic technique with 100 ml Isovue 370 intravenous contrast material. Multiplanar and volume rendered MIP re-formations obtained. Comparison: 12/09/2018 Findings: Satisfactory arterial enhancement is achieved. The aortobi-iliac intraluminal stent graft is in satisfactory stable position. The excluded infrarenal aneurysm is stable in size/volume and there is no evidence for endoleak. Satisfactory enhancement of the major aortic branch vessels including celiac axis, superior mesenteric artery, bilateral solitary renal arteries, and inferior mesenteric artery is appreciated along with satisfactory enhancement through the bifurcation to iliac arteries. Hepatomegaly and fatty infiltration to the liver is again noted without focal hepatic lesion. Spleen, pancreas, gallbladder, bilateral kidneys and left adrenal gland are normal. 1 cm left adrenal adenoma remains stable. The enteric system is without obstruction. Colonic diverticulosis is appreciated and there is subtle stranding adjacent to a proximal sigmoid diverticulum (images 117 - 124) which may reflect sequelae from prior diverticulitis based on comparison examination but should be correlated clinically. Pelvis demonstrates normal bladder and age appropriate prostate/seminal vesicles. No ascites. No free air. No adenopathy. Musculoskeletal structures stable. Impression: 1. Aortobi-iliac stent graft and arterial vasculature appear relatively stable/normal as described above. 2. Hepatomegaly and hepatic steatosis. 3. Colonic diverticulosis with subtle changes to the proximal sigmoid colon likely reflecting chronic change related to prior diverticulitis. Electronically Signed by Diomedes Perez MD 04/03/2019 09:02 A
== END ==
LOC: M RAD 07:12
PROVIDERS: ATTEND Physician Assistant
DX: I71.3 Abdominal aortic aneurysm, ruptured (principal)
CPT/HCPCS: 74174; Q9967

== ENCOUNTER → 2020-03-26 | Outpatient (CLI) | payer OTHER ==
[~2020-03-26] MED LIST changes: +ASPI-546 PO; -ASPI1TAB15 PO; -ISOVUE-370 76% 100ML VIAL (Q9967) As Ordered ONE
--- NOTE | 2020-03-26 08:47 | REP ---
INDICATION: PAIN. COMPARISON: Comparison left knee radiographs are from March 02, 2015.. TECHNIQUE: AP and lateral views. FINDINGS: AP and lateral views of the left knee demonstrate 3 compartment osteoarthritis similar to the 2015 prior study.. No fracture or subluxation is seen. No opaque foreign body noted. There are innumerable osteocartilaginous loose bodies at the anterior and posterior joint space line. These are felt to be indicative of synovial chondromatosis. Some of these are a little larger and better mineralized but the findings are not new. There is patellofemoral narrowing and patellofemoral and medial compartment spurring is most pronounced. There is some lateral compartment spurring. 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 Innumerable osteocartilaginous loose bodies. Findings quite similar to the 2015 prior study. Some of the presumed loose bodies have become a little larger and more mineralized.. <Electronically signed by Gilles Lucero > 03/26/20 [id number]
[2020-03-26 12:09] LABS: BLOOD UREA NITROGEN 19 MG/DL (7-18); CALCIUM LEVEL 8.7 MG/DL (8.5-10.1); CARBON DIOXIDE LEVEL 24 MEQ/L (21-32); CHLORIDE LEVEL 104 MEQ/L (98-107); CREATININE FOR GFR 1.14 MG/DL (0.70-1.30); GLOMERULAR FILTRATION RATE > 60.0 (>56); GLUCOSE, FASTING 307 MG/DL (70-100); POTASSIUM SERUM 4.1 MEQ/L (3.5-5.1); SODIUM LEVEL 136 MEQ/L (136-145)
[2020-03-26 12:44] LABS: HEMOGLOBIN A1c 9.5 %
== END ==
LOC: M WUC 08:04
PROVIDERS: ATTEND Physician Assistant Medical
DX: R73.01 Impaired fasting glucose (principal); M25.562 Pain in left knee

== ENCOUNTER → 2020-05-06 | Outpatient (CLI) | payer OTHER ==
--- NOTE | 2020-05-06 10:09 | REP ---
INDICATION: ABDOMINAL AORTIC ANEURYSM, RUPTURED COMPARISON: None TECHNIQUE: Axial noncontrast images from the lung bases to the pubic symphysis with coronal and sagittal reformations. This CT examination was performed using the following dose reduction techniques: Automated exposure control, adjustment of mA and/or kv according to the patient's size, and use of iterative reconstruction technique. FINDINGS: Patient is noted to be status post aorto-bi iliac stent graft placement. The aorta measures 3.9 cm maximal diameter and appears decreased from prior examination. No periaortic inflammatory stranding or fluid is identified to suggest rupture. Hepatosteatosis. Spleen, pancreas, gallbladder, bilateral kidneys and left adrenal glands are normal. 1.1 cm right adrenal adenoma again noted. Evaluation of the enteric system demonstrates mucosal thickening and pericolonic stranding involving the sigmoid colon in the setting of diverticula and is concerning for acute diverticulitis. Clinical and physical correlation is recommended. No associated bowel obstruction or perforation. No ascites or drainable collection. Remainder of the small and large bowel is unremarkable including normal terminal ileum, cecum and appendix. Pelvis demonstrates normal bladder and age-appropriate prostate/seminal vesicles. Small fat containing left inguinal hernia noted. No ascites. No free air. No adenopathy. Musculoskeletal structures without acute osseous abnormality. Lung bases are clear. IMPRESSION: 1. Aortoiliac stent graft without increased aortic aneurysm or evidence for aortic rupture/perforation. 2. Findings suspicious for sigmoid diverticulitis and correlation is required. <Electronically signed by Diomedes Perez > 05/06/20 [id number]
== END ==
LOC: M RAD 08:31
PROVIDERS: ATTEND Physician Assistant
DX: I71.4 Abdominal aortic aneurysm, without rupture (principal); Z95.1 Presence of aortocoronary bypass graft

== ENCOUNTER → 2020-05-19 | Outpatient (CLI) | payer OTHER ==
[2020-05-19 16:32] LABS: BLOOD UREA NITROGEN 19 MG/DL (7-18); CREATININE FOR GFR 1.07 MG/DL (0.70-1.30); GLOMERULAR FILTRATION RATE > 60.0 (>56)
== END ==
LOC: M WUC 14:37
PROVIDERS: ATTEND Orthopaedic Surgery
DX: M25.562 Pain in left knee (principal); M17.12 Unilateral primary osteoarthritis, left knee

== ENCOUNTER → 2020-06-29 | Outpatient (CLI) | payer OTHER ==
--- NOTE | 2020-06-29 09:41 | REP ---
INDICATION: ATHEROSCLEROSIS. COMPARISON: None. 09/24/2017. TECHNIQUE: Doppler ultrasound of the lower extremity arteries bilaterally. FINDINGS: Right lower extremity: Brachial peak systole: 120 mmHg Dorsalis pedis peak systole: 110 mmHg [employer] peak systole: 120 mmHg LIBBY: 0.91 ATMOSPHERIC PHYSICS PROFESSOR: 101 velocity, triphasic phasicity Profunda: 91 velocity, triphasic phasicity SFA prox: 87 velocity, triphasic phasicity SFA mid: 78 velocity, triphasic phasicity SFA dist: 82 velocity, triphasic phasicity Pop: 47 velocity, triphasic phasicity DOM prox: 54 velocity, biphasic phasicity Tib/P tr: 67 velocity, monophasic phasicity [employer] pr: 48 velocity, biphasic phasicity [employer] dst: 100 velocity, monophasic phasicity DOM dst: 37 velocity, monophasic phasicity Left lower extremity: Brachial peak systole: 120 mmHg Dorsalis pedis peak systole: 120 mmHg [employer] peak systole: 130 mmHg LIBBY: 1 ATMOSPHERIC PHYSICS PROFESSOR: 80 velocity, triphasic phasicity Profunda: 63 velocity, triphasic phasicity SFA prox: 56 velocity, biphasic phasicity SFA mid: 78 velocity, triphasic phasicity SFA dist: 84 velocity, triphasic phasicity Pop: 45 velocity, biphasic phasicity DOM prox: 32 velocity, monophasic phasicity Tib/P tr: 41 velocity, monophasic phasicity [employer] pr: 41 velocity, monophasic phasicity [employer] dst: 74 velocity, biphasic phasicity DOM dst: 26 velocity, monophasic phasicity IMPRESSION: Right lower extremity: There is moderate atheromatous plaque from the ATMOSPH[employer]IC PHYSICS PROFESSOR to the ankle. There are triphasic waveforms from the ATMOS[employer] PHYS[employer] PROFESSOR to the popliteal artery. There are monophasic waveforms distal to this except for biphasic waveforms in the proximal DOM and in the proximal [employer]. There is focal dilatation of the distal SFA measuring 1.4 x 1.3 cm for a craniocaudad length of 3.4 cm, compatible with focal ectasias versus aneurysm. There is no significant stenosis. Left lower extremity: There is moderate plaque from the ATMOS[employer] PHYSICS PROFESSOR to the ankle. There are triphasic/biphasic waveforms from the ATMOS[employer] PHYS[employer] PROFESSOR to the popliteal artery. There are monophasic waveforms distal to this except for the distal [employer] with there is a biphasic waveform. There is a focal dilatation of the proximal popliteal artery above the knee measuring 1.9 x 1.5 cm for a craniocaudad length of 3.1 cm. This could represent ectasia or aneurysm. There is no significant stenosis. <Electronically signed by Stanislaw Méndez > 06/29/20 [id number]
== END ==
LOC: M RAD 07:06
PROVIDERS: ATTEND Surgery Vascular Surgery
DX: I70.213 Atherosclerosis of native arteries of extremities with intermittent claudication, bilateral legs (principal)

== ENCOUNTER → 2020-07-21 | Outpatient (CLI) | payer OTHER ==
[2020-07-21 12:32] LABS: BLOOD UREA NITROGEN 17 MG/DL (7-18); CARBON DIOXIDE LEVEL 26 MEQ/L (21-32); CHLORIDE LEVEL 105 MEQ/L (98-107); CREATININE FOR GFR 1.04 MG/DL (0.70-1.30); GLOMERULAR FILTRATION RATE > 60.0 (>56); GLUCOSE, FASTING 167 MG/DL (70-100); POTASSIUM SERUM 4.1 MEQ/L (3.5-5.1); SODIUM LEVEL 138 MEQ/L (136-145)
[2020-07-21 12:33] LABS: CALCIUM LEVEL 9.5 MG/DL (8.5-10.1)
[2020-07-21 13:01] LABS: MALB URINE SIEMENS 18.8 MG/L
[2020-07-22 14:45] LABS: HEMOGLOBIN A1c 6.6 %
== END ==
LOC: M WUC 09:15
PROVIDERS: ATTEND Physician Assistant Medical
DX: E11.9 Type 2 diabetes mellitus without complications (principal)

== ENCOUNTER → 2020-11-17 | Outpatient (CLI) | payer OTHER | LOC: M WUC 11:01 | PROVIDERS: ATTEND Family Medicine | DX: E11.9 Type 2 diabetes mellitus without complications (principal) ==

== ENCOUNTER → 2020-11-23 | Outpatient (CLI) | payer OTHER ==
[2020-11-23 16:28] LABS: BASO # 0.1 10^3/uL (0.0-0.2); EOS # 0.3 10^3/uL (0.0-0.5); EOS % 3.7 % (0.0-3.0); HEMATOCRIT 45.8 % (42.0-52.0); HEMOGLOBIN 15.1 g/dl (13.5-17.5); LYMPH % 35.1 % (24.0-44.0); MEAN CORPUSCULAR HEMOGLOBIN 32.6 pg (27.0-33.0); MEAN CORPUSCULAR VOLUME 98.9 fl (80.0-96.0); MONO # 0.5 10^3/uL (0.0-0.8); MONO % 6.1 % (2.0-8.0); NEUTROPHILS # 4.6 10^3/uL (1.5-8.5); NEUTROPHILS % 53.6 % (36.0-66.0); PLATELET COUNT, AUTOMATED 151 10^3/uL (150-450); RED BLOOD COUNT 4.63 10^6/uL (4.30-6.10); WHITE BLOOD COUNT 8.7 10^3/uL (4.0-10.0)
[2020-11-23 16:58] LABS: ALBUMIN 3.8 GM/DL (3.2-5.2); ALT/SGPT 61 U/L (12-78); BILIRUBIN,TOTAL 0.5 MG/DL (0.2-1.0); BLOOD UREA NITROGEN 17 MG/DL (7-18); CALCIUM LEVEL 8.9 MG/DL (8.5-10.1); CARBON DIOXIDE LEVEL 25 MEQ/L (21-32); CHLORIDE LEVEL 106 MEQ/L (98-107); GLOMERULAR FILTRATION RATE > 60.0 (>56); GLUCOSE, FASTING 190 MG/DL (70-100); POTASSIUM SERUM 4.1 MEQ/L (3.5-5.1); SODIUM LEVEL 138 MEQ/L (136-145); TOTAL PROTEIN 7.6 GM/DL (6.4-8.2)
== END ==
LOC: M WUC 11:21
PROVIDERS: ATTEND Family Medicine
DX: E11.9 Type 2 diabetes mellitus without complications (principal)

== ENCOUNTER → 2021-03-09 | Outpatient (CLI) | payer OTHER ==
[~2021-03-09] MED LIST changes: -LISI10TA15; +LISI10TA24
== END ==
LOC: M SOG 07:56
PROVIDERS: ATTEND Orthopaedic Surgery Adult Reconstructive Orthopaedic Surgery
DX: M25.562 Pain in left knee (principal); M17.12 Unilateral primary osteoarthritis, left knee

== ENCOUNTER → 2021-04-14 | Outpatient (REF) | payer OTHER ==
[~2021-04-14] MED LIST changes: +LISI10TA15; -LISI10TA24
[2021-04-14 12:17] LABS: BLOOD UREA NITROGEN 15 MG/DL (7-18); CREATININE FOR GFR 1.08 MG/DL (0.70-1.30); GLOMERULAR FILTRATION RATE > 60.0 (>56)
== END ==
LOC: M WUC 11:07
PROVIDERS: ATTEND Orthopaedic Surgery Adult Reconstructive Orthopaedic Surgery
DX: M79.9 Soft tissue disorder, unspecified (principal)

== ENCOUNTER → 2021-06-14 | Outpatient (REF) | payer OTHER ==
[~2021-06-14] MED LIST changes: -LISI10TA15; +LISI10TA24
== END ==
LOC: M LAB REF 18:22
PROVIDERS: ATTEND Orthopaedic Surgery
DX: L72.0 Epidermal cyst (principal)

== ENCOUNTER → 2021-08-15 | Outpatient (CLI) | payer OTHER ==
[2021-08-15 10:53] LABS: BASO # 0.1 10^3/uL (0.0-0.2); BASO % 0.8 % (0.0-1.0); EOS # 0.1 10^3/uL (0.0-0.5); EOS % 1.1 % (0.0-3.0); HEMATOCRIT 47.6 % (42.0-52.0); LYMPH # 2.5 10^3/uL (1.5-5.0); LYMPH % 37.8 % (24.0-44.0); MEAN CORPUSCULAR HEMOGLOBIN 32.9 pg (27.0-33.0); MEAN CORPUSCULAR HGB CONC 33.6 g/dl (32.0-36.5); MEAN CORPUSCULAR VOLUME 97.9 fl (80.0-96.0); MONO % 15.7 % (2.0-8.0); NEUTROPHILS # 2.9 10^3/uL (1.5-8.5); PLATELET COUNT, AUTOMATED 149 10^3/uL (150-450); RED BLOOD COUNT 4.86 10^6/uL (4.30-6.10); WHITE BLOOD COUNT 6.6 10^3/uL (4.0-10.0)
[2021-08-15 11:50] LABS: MALB URINE SIEMENS 62.2 MG/L; MAU/CREAT RATIO 16.2 MCG/MG (0.0-30.0)
[2021-08-15 11:54] LABS: ALT/SGPT 64 U/L (12-78); BILIRUBIN,TOTAL 0.8 MG/DL (0.2-1.0); BLOOD UREA NITROGEN 20 MG/DL (7-18); CALCIUM LEVEL 8.8 MG/DL (8.5-10.1); CARBON DIOXIDE LEVEL 29 MEQ/L (21-32); CHLORIDE LEVEL 105 MEQ/L (98-107); CHOLESTEROL LEVEL 102 MG/DL (<200); CHOLESTEROL RISK RATIO 3.642 (<5); CREATININE FOR GFR 1.13 MG/DL (0.70-1.30); GLOMERULAR FILTRATION RATE > 60.0 (>56); GLUCOSE, FASTING 121 MG/DL (70-100); HDL CHOLESTEROL 28 MG/DL (>40); LDL CHOLESTEROL 42 MG/DL (<100); NON-HDL-C 74 MG/DL; POTASSIUM SERUM 3.8 MEQ/L (3.5-5.1); SODIUM LEVEL 138 MEQ/L (136-145); TOTAL PROTEIN 8.4 GM/DL (6.4-8.2); TRIGLYCERIDES LEVEL 161 MG/DL (<150)
[2021-08-15 12:55] LABS: HEMOGLOBIN A1c 5.9 %
== END ==
LOC: M WUC 09:16
PROVIDERS: ATTEND Family Medicine
DX: E11.9 Type 2 diabetes mellitus without complications (principal)

== ENCOUNTER → 2021-12-19 | Outpatient (CLI) | payer OTHER ==
[~2021-12-19] MED LIST changes: -GLUCTAB6 PO; +GLUCTAB7 PO
[2021-12-19 16:33] LABS: BASO # 0.1 10^3/uL (0.0-0.2); BASO % 0.9 % (0.0-1.0); EOS # 0.2 10^3/uL (0.0-0.5); EOS % 2.2 % (0.0-3.0); HEMATOCRIT 45.6 % (42.0-52.0); LYMPH # 3.2 10^3/uL (1.5-5.0); LYMPH % 30.9 % (24.0-44.0); MEAN CORPUSCULAR HEMOGLOBIN 32.4 pg (27.0-33.0); MEAN CORPUSCULAR HGB CONC 32.9 g/dl (32.0-36.5); MEAN CORPUSCULAR VOLUME 98.5 fl (80.0-96.0); MONO # 0.7 10^3/uL (0.0-0.8); MONO % 7.1 % (2.0-8.0); NEUTROPHILS # 6.1 10^3/uL (1.5-8.5); NEUTROPHILS % 58.2 % (36.0-66.0); PLATELET COUNT, AUTOMATED 146 10^3/uL (150-450); RED BLOOD COUNT 4.63 10^6/uL (4.30-6.10); WHITE BLOOD COUNT 10.4 10^3/uL (4.0-10.0)
[2021-12-19 16:52] LABS: INR 1.05; PROTHROMBIN TIME 14.1 SECONDS (12.7-14.5)
[2021-12-19 16:53] LABS: PARTIAL THROMBOPLASTIN TIME 30.5 SECONDS (25.9-37.0)
[2021-12-19 17:45] LABS: ALBUMIN 3.8 GM/DL (3.2-5.2); ALT/SGPT 82 U/L (12-78); BILIRUBIN,TOTAL 0.4 MG/DL (0.2-1.0); BLOOD UREA NITROGEN 18 MG/DL (7-18); CALCIUM LEVEL 9.4 MG/DL (8.5-10.1); CARBON DIOXIDE LEVEL 26 MEQ/L (21-32); CHLORIDE LEVEL 109 MEQ/L (98-107); CREATININE FOR GFR 1.12 MG/DL (0.70-1.30); GLOMERULAR FILTRATION RATE > 60.0 (>56); GLUCOSE, FASTING 97 MG/DL (70-100); SODIUM LEVEL 139 MEQ/L (136-145); TOTAL PROTEIN 7.8 GM/DL (6.4-8.2)
== END ==
LOC: M WUC 14:26
PROVIDERS: ATTEND Nurse Practitioner Family
DX: I10 Essential (primary) hypertension (principal); E11.9 Type 2 diabetes mellitus without complications; I82.509 Chronic embolism and thrombosis of unspecified deep veins of unspecified lower extremity; Z01.818 Encounter for other preprocedural examination

== ENCOUNTER → 2022-06-16 | Outpatient (CLI) | payer MEDICAID, MEDICARE | LOC: M PLAIMG 10:41 | PROVIDERS: ATTEND Surgery | DX: Z95.828 Presence of other vascular implants and grafts (principal) ==

== ENCOUNTER → 2022-07-26 | Outpatient (CLI) | payer MEDICARE ==
[2022-07-26 10:25] LABS: BASO # 0.1 10^3/uL (0.0-0.2); BASO % 0.8 % (0.0-1.0); EOS # 0.3 10^3/uL (0.0-0.5); EOS % 2.9 % (0.0-3.0); HEMATOCRIT 45.9 % (42.0-52.0); HEMOGLOBIN 15.1 g/dl (13.5-17.5); LYMPH % 33.2 % (24.0-44.0); MEAN CORPUSCULAR HEMOGLOBIN 32.5 pg (27.0-33.0); MEAN CORPUSCULAR HGB CONC 32.9 g/dl (32.0-36.5); MEAN CORPUSCULAR VOLUME 98.9 fl (80.0-96.0); MONO # 0.7 10^3/uL (0.0-0.8); MONO % 7.5 % (2.0-8.0); NEUTROPHILS # 5.1 10^3/uL (1.5-8.5); NEUTROPHILS % 55.2 % (36.0-66.0); PLATELET COUNT, AUTOMATED 159 10^3/uL (150-450); RED BLOOD COUNT 4.64 10^6/uL (4.30-6.10); WHITE BLOOD COUNT 9.2 10^3/uL (4.0-10.0)
[2022-07-26 10:52] LABS: ALBUMIN 3.8 G/DL (3.2-5.2); ALKALINE PHOSPHATASE 90 U/L (46-116); ALT/SGPT 48 U/L (7.0-40); AST/SGOT 32 U/L (<34); BILIRUBIN,TOTAL 0.3 MG/DL (0.3-1.2); BLOOD UREA NITROGEN 16 MG/DL (9-23); CALCIUM LEVEL 8.8 MG/DL (8.5-10.1); CARBON DIOXIDE LEVEL 27 MMOL/L (20-31); CHLORIDE LEVEL 104 MMOL/L (98-107); CHOLESTEROL LEVEL 148 MG/DL (<200); CHOLESTEROL RISK RATIO 6.51 (<5); CREATININE FOR GFR 1.02 MG/DL (0.70-1.30); GLOMERULAR FILTRATION RATE > 60.0 (>56); GLUCOSE, FASTING 143 MG/DL (60-100); HDL CHOLESTEROL 22.7 MG/DL (>40); NON-HDL-C 125.3 MG/DL; POTASSIUM SERUM 4.3 MMOL/L (3.5-5.1); SODIUM LEVEL 137 MMOL/L (136-145); TOTAL PROTEIN 7.5 G/DL (5.7-8.2); TRIGLYCERIDES LEVEL 572 MG/DL (<150)
[2022-07-26 11:00] LABS: CREATININE, URINE 239.8 MG/DL; MAU/CREAT RATIO 1.6 MCG/MG (0.0-30.0)
[2022-07-26 11:10] LABS: HEMOGLOBIN A1c 6.1 % (4.0-6.0)
== END ==
LOC: M WUC 08:01
PROVIDERS: ATTEND Nurse Practitioner Family
DX: E11.9 Type 2 diabetes mellitus without complications (principal); E78.2 Mixed hyperlipidemia

== ENCOUNTER → 2022-11-17 | Outpatient (CLI) | payer MEDICARE | LOC: M RAD 11:24 | PROVIDERS: ATTEND Chiropractor | DX: M54.41 Lumbago with sciatica, right side (principal); M99.03 Segmental and somatic dysfunction of lumbar region; M50.31 Other cervical disc degeneration, high cervical region; M99.01 Segmental and somatic dysfunction of cervical region; M51.34 Other intervertebral disc degeneration, thoracic region; M99.02 Segmental and somatic dysfunction of thoracic region ==

== ENCOUNTER → 2022-12-28 | Outpatient (CLI) | payer MEDICARE ==
[2022-12-28 12:07] LABS: ALBUMIN 3.8 G/DL (3.2-5.2); BILIRUBIN,DIRECT 0.2 MG/DL (<0.4); BILIRUBIN,TOTAL 0.4 MG/DL (0.3-1.2); CHOLESTEROL RISK RATIO 4.95 (<5); HDL CHOLESTEROL 24.4 MG/DL (>40); NON-HDL-C 96.6 MG/DL
== END ==
LOC: M WUC 08:13
PROVIDERS: ATTEND Registered Nurse
DX: E78.2 Mixed hyperlipidemia (principal)

== ENCOUNTER → 2023-03-13 | Outpatient (REF) | payer MEDICARE ==
[2023-03-13 18:06] LABS: HEMOGLOBIN A1c 5.9 % (4.0-6.0)
== END ==
LOC: M LABWUC 16:33
PROVIDERS: ATTEND Nurse Practitioner Family
DX: E11.9 Type 2 diabetes mellitus without complications (principal)

== ENCOUNTER → 2023-05-15 | Outpatient (REF) | payer MEDICARE ==
[2023-05-15 19:59] LABS: BASO # 0.1 10^3/uL (0.0-0.2); BASO % 0.8 % (0.0-1.0); EOS # 0.2 10^3/uL (0.0-0.5); EOS % 2.2 % (0.0-3.0); HEMATOCRIT 42.2 % (42.0-52.0); LYMPH # 3.1 10^3/uL (1.5-5.0); MEAN CORPUSCULAR HEMOGLOBIN 33.3 pg (27.0-33.0); MEAN CORPUSCULAR HGB CONC 33.2 g/dl (32.0-36.5); MEAN CORPUSCULAR VOLUME 100.5 fl (80.0-96.0); MONO # 0.6 10^3/uL (0.0-0.8); MONO % 6.3 % (2.0-8.0); NEUTROPHILS # 5.6 10^3/uL (1.5-8.5); NEUTROPHILS % 57.7 % (36.0-66.0); PLATELET COUNT, AUTOMATED 175 10^3/uL (150-450); WHITE BLOOD COUNT 9.8 10^3/uL (4.0-10.0)
[2023-05-15 20:26] LABS: ALBUMIN 3.8 G/DL (3.2-5.2); ALKALINE PHOSPHATASE 55 U/L (46-116); ALT/SGPT 63 U/L (7.0-40); AST/SGOT 35 U/L (<34); BILIRUBIN,TOTAL 0.4 MG/DL (0.3-1.2); BLOOD UREA NITROGEN 21 MG/DL (9-23); CARBON DIOXIDE LEVEL 27 MMOL/L (20-31); CHLORIDE LEVEL 108 MMOL/L (98-107); CREATININE FOR GFR 1.09 MG/DL (0.70-1.30); GLOMERULAR FILTRATION RATE > 60.0 (>56); GLUCOSE, FASTING 156 MG/DL (60-100); IRON (FE) 121 UG/DL (65-175); MAGNESIUM LEVEL 1.6 MG/DL (1.8-2.4); POTASSIUM SERUM 4.1 MMOL/L (3.5-5.1); SODIUM LEVEL 141 MMOL/L (136-145); TOTAL IRON BINDING CAPACITY 295 UG/DL (250-425); TOTAL PROTEIN 7.2 G/DL (5.7-8.2)
[2023-05-15 20:30] LABS: FERRITIN 266.7 NG/ML (10.5-307.3); TOTAL 25(OH) VITAMIN D 13.9 NG/ML (20.0-100.0)
[2023-05-15 20:34] LABS: FOLATE 11.2 NG/ML (>5.4)
[2023-05-15 20:36] LABS: VITAMIN B12 LEVEL 507 PG/ML (211-911)
== END ==
LOC: M LABWUC 17:43
PROVIDERS: ATTEND Registered Nurse
DX: M62.838 Other muscle spasm (principal)

== ENCOUNTER → 2023-05-25 | Outpatient (CLI) | payer MEDICARE, OTHER | LOC: M RAD 10:51 | PROVIDERS: ATTEND Registered Nurse | DX: R93.7 Abnormal findings on diagnostic imaging of other parts of musculoskeletal system (principal) ==

== ENCOUNTER → 2023-07-18 | Outpatient (CLI) | payer MEDICARE, OTHER | LOC: M RAD 16:51 | PROVIDERS: ATTEND Surgery | DX: Z95.828 Presence of other vascular implants and grafts (principal) ==

== ENCOUNTER → 2023-10-25 | Outpatient (REF) | payer MEDICARE, OTHER ==
[2023-10-25 11:10] LABS: HEMOGLOBIN A1c 6.1 % (4.0-6.0)
[2023-10-25 11:19] LABS: ALBUMIN 3.7 G/DL (3.2-5.2); ALKALINE PHOSPHATASE 65 U/L (46-116); ALT/SGPT 50 U/L (7.0-40); AST/SGOT 39 U/L (<34); BILIRUBIN,TOTAL 0.3 MG/DL (0.3-1.2); BLOOD UREA NITROGEN 21 MG/DL (9-23); CALCIUM LEVEL 9.4 MG/DL (8.5-10.1); CARBON DIOXIDE LEVEL 26 MMOL/L (20-31); CHLORIDE LEVEL 107 MMOL/L (98-107); CHOLESTEROL LEVEL 127 MG/DL (<200); CHOLESTEROL RISK RATIO 5.72 (<5); CREATININE FOR GFR 1.21 MG/DL (0.70-1.30); GLOMERULAR FILTRATION RATE > 60.0 (>56); GLUCOSE, FASTING 162 MG/DL (60-100); HDL CHOLESTEROL 22.2 MG/DL (>40); LDL CHOLESTEROL 45.8 MG/DL (<100); NON-HDL-C 104.8 MG/DL; POTASSIUM SERUM 4.3 MMOL/L (3.5-5.1); SODIUM LEVEL 138 MMOL/L (136-145); TRIGLYCERIDES LEVEL 295 MG/DL (<150)
[2023-10-25 11:23] LABS: TOTAL 25(OH) VITAMIN D 31.7 NG/ML (20.0-100.0)
== END ==
LOC: M LABWUC 09:54
PROVIDERS: ATTEND Registered Nurse
DX: E11.9 Type 2 diabetes mellitus without complications (principal); E55.9 Vitamin D deficiency, unspecified; E78.2 Mixed hyperlipidemia

== ENCOUNTER 2024-02-03 12:20 | Emergency (ER) | payer MEDICARE, OTHER ==
[~2024-02-03] VITALS: Ht 188 cm; Wt 120.0 kg
[2024-02-03 12:22] VITALS: BP 159/89; TEMP 97.4; O2SAT 96
[2024-02-03] MEDS ORDERED: FENO134C20 (12:30)
[2024-02-03] MEDS ORDERED: JARD1TAB (12:30)
[2024-02-03] MEDS ORDERED: ELIQ5TAB (12:30)
[2024-02-03] MEDS: ACETAMINOPHEN 500 MG TAB PO ONE (15:10)
== END 2024-02-03 15:39 | disposition home or self-care (01) ==
LOC: M ED 12:20
DX: S83.92XA Sprain of unspecified site of left knee, initial encounter (principal); M67.862 Other specified disorders of synovium, left knee; M17.12 Unilateral primary osteoarthritis, left knee; Y92.019 Unspecified place in single-family (private) house as the place of occurrence of the external cause; Y93.9 Activity, unspecified; Y99.9 Unspecified external cause status; W10.8XXA Fall (on) (from) other stairs and steps, initial encounter; I10 Essential (primary) hypertension; E11.9 Type 2 diabetes mellitus without complications; F12.10 Cannabis abuse, uncomplicated; Z88.5 Allergy status to narcotic agent; Z79.01 Long term (current) use of anticoagulants; Z79.1 Long term (current) use of non-steroidal anti-inflammatories (NSAID); Z79.4 Long term (current) use of insulin; Z79.899 Other long term (current) drug therapy

== ENCOUNTER → 2024-02-08 | Outpatient (CLI) | payer MEDICARE, OTHER ==
[~2024-02-08] MED LIST changes: +ELIQ5TAB; +FENO134C20; +JARD1TAB
[2024-02-08 16:49] LABS: BLOOD UREA NITROGEN 25 MG/DL (9-23); CALCIUM LEVEL 9.9 MG/DL (8.5-10.1); CARBON DIOXIDE LEVEL 28 MMOL/L (20-31); CHLORIDE LEVEL 104 MMOL/L (98-107); CPK CREATINE PHOSPHOKINASE 179 U/L (46-171); CREATININE FOR GFR 1.28 MG/DL (0.70-1.30); GLOMERULAR FILTRATION RATE > 60.0 (>56); GLUCOSE, FASTING 207 MG/DL (60-100); MAGNESIUM LEVEL 2.1 MG/DL (1.8-2.4); POTASSIUM SERUM 4.4 MMOL/L (3.5-5.1); SODIUM LEVEL 139 MMOL/L (136-145)
[2024-02-08 16:52] LABS: FREE T4 1.07 NG/DL (0.89-1.76)
[2024-02-08 16:57] LABS: BASO # 0.1 10^3/uL (0.0-0.2); BASO % 0.9 % (0.0-1.0); EOS # 0.3 10^3/uL (0.0-0.5); EOS % 3.2 % (0.0-3.0); HEMATOCRIT 45.7 % (42.0-52.0); LYMPH # 2.4 10^3/uL (1.5-5.0); LYMPH % 28.2 % (24.0-44.0); MEAN CORPUSCULAR HEMOGLOBIN 32.8 pg (27.0-33.0); MEAN CORPUSCULAR HGB CONC 32.8 g/dl (32.0-36.5); MONO # 0.5 10^3/uL (0.0-0.8); MONO % 5.8 % (2.0-8.0); NEUTROPHILS # 5.3 10^3/uL (1.5-8.5); PLATELET COUNT, AUTOMATED 192 10^3/uL (150-450); RED BLOOD COUNT 4.57 10^6/uL (4.30-6.10); WHITE BLOOD COUNT 8.7 10^3/uL (4.0-10.0)
[2024-02-08 17:00] LABS: THYROID STIMULATING HORMONE 2.712 uIU/ML (0.55-4.78)
[2024-02-08 17:26] LABS: HEMOGLOBIN A1c 6.5 % (4.0-6.0)
== END ==
LOC: M WUC 11:29
PROVIDERS: ATTEND Nurse Practitioner Family
DX: R25.2 Cramp and spasm (principal)

== ENCOUNTER → 2024-02-19 | Outpatient (CLI) | payer MEDICARE, OTHER ==
[2024-02-19 14:00] LABS: HEMOGLOBIN A1c 6.5 % (4.0-6.0)
[2024-02-19 14:11] LABS: THYROID STIMULATING HORMONE 2.271 uIU/ML (0.55-4.78)
[2024-02-19 14:12] LABS: FOLATE 21.2 NG/ML (>5.4)
[2024-02-21 08:32] LABS: ALBUMIN SPEP 4.6 g/dL (3.8-4.8); ALPHA-1-GLOBULINS SO 0.3 g/dL (0.2-0.3); ALPHA-2-GLOBULINS SO 0.9 g/dL (0.5-0.9); BETA 2 GLOBULIN 0.6 g/dL (0.2-0.5); BETA-GLOBULIN SO 0.4 g/dL (0.4-0.6); GAMMA GLOBULINS SO 1.2 g/dL (0.8-1.7)
== END ==
LOC: M WUC 10:54
PROVIDERS: ATTEND Psychiatry & Neurology Neurology
DX: E11.40 Type 2 diabetes mellitus with diabetic neuropathy, unspecified (principal); E53.8 Deficiency of other specified B group vitamins

== ENCOUNTER → 2024-03-24 | Outpatient (CLI) | payer MEDICARE, OTHER | LOC: M RAD 09:53 | PROVIDERS: ATTEND Physician Assistant | DX: M17.12 Unilateral primary osteoarthritis, left knee (principal); M16.11 Unilateral primary osteoarthritis, right hip ==

== ENCOUNTER → 2024-03-25 | Outpatient (CLI) | payer MEDICARE, OTHER | LOC: M SOG 07:55 | PROVIDERS: ATTEND Physician Assistant | DX: M16.11 Unilateral primary osteoarthritis, right hip (principal) ==

== ENCOUNTER → 2024-04-17 | Outpatient (CLI) | payer MEDICARE, OTHER ==
[2024-04-17 16:36] LABS: INR 1.1; PROTHROMBIN TIME 14.5 SECONDS (12.5-14.5)
[2024-04-17 16:42] LABS: ALBUMIN 4.1 G/DL (3.2-5.2); ALKALINE PHOSPHATASE 72 U/L (40-129); ALT/SGPT 60 U/L (7.0-40); AST/SGOT 44 U/L (<34); BILIRUBIN,TOTAL 0.4 MG/DL (0.3-1.2); BLOOD UREA NITROGEN 22 MG/DL (9-23); C REACTIVE PROTEIN QUANTITATIV < 0.50 MG/DL (<1.0); CALCIUM LEVEL 10.2 MG/DL (8.5-10.1); CARBON DIOXIDE LEVEL 29 MMOL/L (20-31); CHLORIDE LEVEL 103 MMOL/L (98-107); CREATININE FOR GFR 1.21 MG/DL (0.70-1.30); GLOMERULAR FILTRATION RATE > 60.0 (>56); GLUCOSE, FASTING 134 MG/DL (60-100); POTASSIUM SERUM 4.6 MMOL/L (3.5-5.1); SODIUM LEVEL 141 MMOL/L (136-145); TOTAL PROTEIN 8.2 G/DL (5.7-8.2)
[2024-04-17 16:44] LABS: BASO # 0.1 10^3/uL (0.0-0.2); BASO % 0.9 % (0.0-1.0); EOS # 0.3 10^3/uL (0.0-0.5); EOS % 2.6 % (0.0-3.0); HEMATOCRIT 48.6 % (42.0-52.0); HEMOGLOBIN 16.2 g/dl (13.5-17.5); LYMPH # 3.1 10^3/uL (1.5-5.0); LYMPH % 32.1 % (24.0-44.0); MEAN CORPUSCULAR HEMOGLOBIN 33.2 pg (27.0-33.0); MEAN CORPUSCULAR HGB CONC 33.3 g/dl (32.0-36.5); MEAN CORPUSCULAR VOLUME 99.6 fl (80.0-96.0); MONO # 0.7 10^3/uL (0.0-0.8); MONO % 7.3 % (2.0-8.0); NEUTROPHILS # 5.4 10^3/uL (1.5-8.5); NEUTROPHILS % 55.8 % (36.0-66.0); PLATELET COUNT, AUTOMATED 152 10^3/uL (150-450); RED BLOOD COUNT 4.88 10^6/uL (4.30-6.10); WHITE BLOOD COUNT 9.7 10^3/uL (4.0-10.0)
[2024-04-17 16:45] LABS: TOTAL 25(OH) VITAMIN D 20.8 NG/ML (20.0-100.0)
[2024-04-17 17:08] LABS: HEMOGLOBIN A1c 6.5 % (4.0-6.0)
== END ==
LOC: M WUC 10:54
PROVIDERS: ATTEND Orthopaedic Surgery
DX: M17.12 Unilateral primary osteoarthritis, left knee (principal); Z79.01 Long term (current) use of anticoagulants

== ENCOUNTER 2024-05-27 13:43 | Outpatient (RCR) | payer MEDICARE, OTHER ==
[~2024-05-27 13:43] MED LIST changes: -ATOR1TAB21; +ATOR1TAB21 PO; +D3 H2000 PO; -ELIQ5TAB; +ELIQ5TAB PO; -FENO134C20; +FENO134C20 PO; +GABA-1172 PO; -JARD1TAB; +JARD1TAB PO; -LISI10TA24; +LISI10TA24 PO; +MAGN250T7 PO; +MAGN400C PO; +METO25TA4 PO
== END 2024-06-06 ==
LOC: M PT 13:43
PROVIDERS: ATTEND Orthopaedic Surgery
DX: M17.12 Unilateral primary osteoarthritis, left knee (principal)

== ENCOUNTER → 2024-05-29 | Outpatient (CLI) | payer MEDICARE, OTHER | LOC: M RAD 12:44 | PROVIDERS: ATTEND Orthopaedic Surgery | DX: M17.12 Unilateral primary osteoarthritis, left knee (principal) ==

== ENCOUNTER → 2024-06-02 | Outpatient (CLI) | payer MEDICARE, OTHER | LOC: M WUC 08:11 | PROVIDERS: ATTEND Registered Nurse | DX: Z01.818 Encounter for other preprocedural examination (principal) ==

== ENCOUNTER → 2024-06-02 | Outpatient (CLI) | payer MEDICARE, OTHER ==
[2024-06-02 10:16] LABS: BASO # 0.1 10^3/uL (0.0-0.2); EOS # 0.3 10^3/uL (0.0-0.5); EOS % 3.3 % (0.0-3.0); HEMATOCRIT 48.5 % (42.0-52.0); HEMOGLOBIN 16.1 g/dl (13.5-17.5); LYMPH # 2.8 10^3/uL (1.5-5.0); LYMPH % 31.3 % (24.0-44.0); MEAN CORPUSCULAR HEMOGLOBIN 33.2 pg (27.0-33.0); MEAN CORPUSCULAR HGB CONC 33.2 g/dl (32.0-36.5); MONO # 0.7 10^3/uL (0.0-0.8); MONO % 7.7 % (2.0-8.0); NEUTROPHILS # 4.9 10^3/uL (1.5-8.5); NEUTROPHILS % 55.7 % (36.0-66.0); PLATELET COUNT, AUTOMATED 144 10^3/uL (150-450); RED BLOOD COUNT 4.85 10^6/uL (4.30-6.10); WHITE BLOOD COUNT 8.9 10^3/uL (4.0-10.0)
[2024-06-02 10:36] LABS: CREATININE, URINE 87.4 MG/DL
[2024-06-02 10:37] LABS: ALKALINE PHOSPHATASE 68 U/L (40-129); ALT/SGPT 58 U/L (7.0-40); AST/SGOT 38 U/L (<34); BILIRUBIN,TOTAL 0.4 MG/DL (0.3-1.2); BLOOD UREA NITROGEN 19 MG/DL (9-23); CALCIUM LEVEL 9.3 MG/DL (8.5-10.1); CARBON DIOXIDE LEVEL 27 MMOL/L (20-31); CHLORIDE LEVEL 104 MMOL/L (98-107); CHOLESTEROL LEVEL 169 MG/DL (<200); CHOLESTEROL RISK RATIO 6.65 (<5); CREATININE FOR GFR 1.33 MG/DL (0.70-1.30); GLOMERULAR FILTRATION RATE 59.4 (>56); GLUCOSE, FASTING 195 MG/DL (60-100); HDL CHOLESTEROL 25.4 MG/DL (>40); MALB URINE SIEMENS < 3.0 MG/L; NON-HDL-C 143.6 MG/DL; POTASSIUM SERUM 4.1 MMOL/L (3.5-5.1); SODIUM LEVEL 141 MMOL/L (136-145); TOTAL PROTEIN 7.7 G/DL (5.7-8.2); TRIGLYCERIDES LEVEL 483 MG/DL (<150)
[2024-06-02 10:38] LABS: TOTAL 25(OH) VITAMIN D 28.1 NG/ML (20.0-100.0)
== END ==
LOC: M WUC 08:09
PROVIDERS: ATTEND Nurse Practitioner Family
DX: Z01.818 Encounter for other preprocedural examination (principal); E11.9 Type 2 diabetes mellitus without complications; E78.2 Mixed hyperlipidemia; I10 Essential (primary) hypertension; E55.9 Vitamin D deficiency, unspecified; I48.0 Paroxysmal atrial fibrillation

== ENCOUNTER 2024-06-09 06:05 | Observation (INO) | payer MEDICARE, OTHER ==
[2024-06-09] VITALS (7 sets, daily range): BP systolic 113–172; BP diastolic 49–87; TEMP 97.5–97.9; O2SAT 95–96
[~2024-06-09] VITALS: Ht 188 cm; Wt 126.0 kg
[~2024-06-09 06:05] MED LIST changes: +ceFAZolin SOD 2 GM in IV 1 EA IV ONE
[2024-06-09] MEDS ORDERED: LR 1,000 ML IV SCH (06:15)
[2024-06-09] MEDS ORDERED: LIDOCAINE 2% 100MG/5ML SDV (FOR ANES.) As Ordered ONE (07:14)
[2024-06-09] MEDS ORDERED: MIDAZOLAM INJ 2MG/2ML VIAL As Ordered ONE (07:14)
[2024-06-09] MEDS ORDERED: propofoL 200 MG/20 ML VIAL As Ordered ONE (07:14)
[2024-06-09] MEDS ORDERED: fentaNYL 100 MCG/2 ML INJECTION As Ordered ONE (07:15)
[2024-06-09] MEDS: INSULIN LISPRO (NovoLOG) PER UNIT SC PRN (07:20)
[2024-06-09] MEDS ORDERED: GABA-1172 PO (07:27)
[2024-06-09] MEDS ORDERED: JARD1TAB3 PO (07:27)
[2024-06-09] MEDS: ceFAZolin SOD 3 GM in DEXTROSE 5% (D5W) MINI-BAG PLU 1... IV ONE (07:30)
[2024-06-09] MEDS ORDERED: HOME MED LIST COMPLETE! XX SCH (07:30)
[2024-06-09] MEDS ORDERED: ROCURONIUM BROMIDE 50MG/5ML VIAL As Ordered ONE (07:31)
[2024-06-09] MEDS ORDERED: fentaNYL 250 MCG/5 ML INJECTION As Ordered ONE (08:00)
[2024-06-09] MEDS ORDERED: KETOROLAC 60MG 2ML VIAL As Ordered ONE (08:27)
[2024-06-09] MEDS ORDERED: METOCLOPRAMIDE INJ 10MG/2ML VIAL As Ordered ONE (08:27)
[2024-06-09] MEDS ORDERED: ONDANSETRON 4MG 2ML VIAL As Ordered ONE (08:27)
[2024-06-09] MEDS ORDERED: ACETAMINOPHEN 1000MG/100ML IV BAG As Ordered ONE (08:34)
[2024-06-09] MEDS ORDERED: HYDROmorphone HCL 2MG/ML 1ML VIAL As Ordered ONE (09:01)
[2024-06-09] MEDS ORDERED: DESFLURANE 240 ML INHALANT As Ordered ONE (09:21)
[2024-06-09] MEDS: TRANEXAMIC ACID 100 MG/ML 10ML VIAL As Ordered ONE (10:05)
[2024-06-09] MEDS ORDERED: SUGAMMADEX SODIUM 500 MG/5 ML VIAL (BRIDION) As Ordered ONE (10:08)
[2024-06-09] MEDS: REK 50ML SYRINGE IA ONE (10:10)
[2024-06-09] MEDS ORDERED: SENNA 8.6 MG TAB (SENOKOT) PO PRN (10:35)
[2024-06-09] MEDS ORDERED: GLUCAGON INJ 1MG VIAL SC PRN (10:45)
[2024-06-09] MEDS ORDERED: DEXTROSE 50% 50ML SYRINGE IV PRN (10:45)
[2024-06-09] MEDS ORDERED: GLUCOSE 4 GM CHEW PO PRN (10:45)
[2024-06-09] MEDS ORDERED: HYDROMORPHONE HCL 0.5 MG/ 0.5 ML SYRINGE IV PRN (11:00)
[2024-06-09] MEDS ORDERED: fentaNYL 100 MCG/2 ML INJECTION IV PRN (11:00)
[2024-06-09] MEDS ORDERED: oxyCODONE 5MG TAB PO PRN (11:00)
[2024-06-09] MEDS ORDERED: ONDANSETRON 4MG 2ML VIAL IV PRN (11:00)
[2024-06-09] MEDS: INSULIN LISPRO (NovoLOG) PER UNIT SC SCH ×2 (11:56→21:00)
[2024-06-09] MEDS: LR 1,000 ML IV SCH (12:49)
[2024-06-09] MEDS: ASCORBIC ACID 500 MG TAB PO SCH (12:58)
[2024-06-09] MEDS: DOCUSATE SODIUM 100MG CAPSULE PO SCH (12:58)
[2024-06-09] MEDS: FERROUS SULFATE 325MG TAB PO SCH (12:58)
[2024-06-09] MEDS: ONDANSETRON 4MG 2ML VIAL IV PRN (13:07)
[2024-06-09] MEDS: oxyCODONE 5MG TAB PO PRN (13:08)
[2024-06-09] MEDS: ceFAZolin SODIUM 2 GM in DEXTROSE 5% (D5W) ADV/MINI-BAG 50 ML IV SCH (16:26)
[2024-06-09] MEDS: ACETAMINOPHEN 325 MG TAB PO SCH (17:59)
[2024-06-09] MEDS: METOPROLOL TART 12.5 MG PER 1/2 TAB PO SCH (21:21)
[2024-06-10 03:46] VITALS: BP 148/62; TEMP 97.9; O2SAT 95
[2024-06-10] MEDS: oxyCODONE 5MG TAB PO PRN (05:08)
[2024-06-10 06:33] VITALS: BP 143/64; TEMP 97.3; O2SAT 96
[2024-06-10 07:10] LABS: HEMATOCRIT 38.4 % (42.0-52.0); HEMOGLOBIN 12.8 g/dl (13.5-17.5); MEAN CORPUSCULAR HEMOGLOBIN 32.6 pg (27.0-33.0); MEAN CORPUSCULAR HGB CONC 33.3 g/dl (32.0-36.5); MEAN CORPUSCULAR VOLUME 97.7 fl (80.0-96.0); PLATELET COUNT, AUTOMATED 117 10^3/uL (150-450); RED BLOOD COUNT 3.93 10^6/uL (4.30-6.10)
[2024-06-10 08:10] LABS: ALKALINE PHOSPHATASE 52 U/L (40-129); ALT/SGPT 39 U/L (7.0-40); AST/SGOT 30 U/L (<34); BILIRUBIN,TOTAL 0.6 MG/DL (0.3-1.2); BLOOD UREA NITROGEN 22 MG/DL (9-23); CALCIUM LEVEL 8.3 MG/DL (8.5-10.1); CARBON DIOXIDE LEVEL 25 MMOL/L (20-31); CHLORIDE LEVEL 107 MMOL/L (98-107); GLOMERULAR FILTRATION RATE > 60.0 (>56); GLUCOSE, FASTING 190 MG/DL (60-100); POTASSIUM SERUM 4.5 MMOL/L (3.5-5.1); SODIUM LEVEL 139 MMOL/L (136-145); TOTAL PROTEIN 6.1 G/DL (5.7-8.2)
[2024-06-10] MEDS: APIXABAN 5 MG TAB (ELIQUIS) PO SCH (08:43)
[2024-06-10 08:44] VITALS: BP 134/62
[2024-06-10] MEDS: lisinopriL 5 MG TAB PO SCH (08:44)
[2024-06-10] MEDS: GABAPENTIN 300 MG CAP PO SCH (08:44)
[2024-06-10] MEDS: ATORVASTATIN 20 MG TAB PO SCH (08:44)
[2024-06-10] MEDS: ASPIRIN 81MG ENTERIC TABLET PO SCH (08:44)
[2024-06-10] MEDS ORDERED: CEFA500C2 PO (09:55)
[2024-06-10] MEDS ORDERED: OXYC1TAB23 PO (09:55)
[2024-06-10] MEDS ORDERED: CEFDINIR 300 MG CAP (OMNICEF) PO SCH (18:00)
== END 2024-06-10 10:30 | disposition home or self-care (01) ==
LOC: M SDC 06:05 → M RR INP 06:06 → M MS5PR 12:50
PROVIDERS: ADMIT Orthopaedic Surgery; ATTEND Orthopaedic Surgery
DX: M17.12 Unilateral primary osteoarthritis, left knee (principal); M93.862 Other specified osteochondropathies, left lower leg; D16.22 Benign neoplasm of long bones of left lower limb; I48.91 Unspecified atrial fibrillation; R07.9 Chest pain, unspecified; I25.2 Old myocardial infarction; I10 Essential (primary) hypertension; E11.9 Type 2 diabetes mellitus without complications; G47.30 Sleep apnea, unspecified; Z88.5 Allergy status to narcotic agent; Z79.899 Other long term (current) drug therapy; F17.220 Nicotine dependence, chewing tobacco, uncomplicated
CPT/HCPCS: 27447; 36415; 73560; 80053; 85027; 88300; 88304; 96374; 96375; 96376; 97110; 97161; 97530; C1776; G0378; G0379; J0131; J0171; J0690; J1171; J1815; J1885; J2250; J2405; J2765; J2795; J3010; S2900

== ENCOUNTER → 2024-06-20 | Outpatient (CLI) | payer MEDICARE, OTHER ==
[~2024-06-20] MED LIST changes: +CEFA500C2 PO; +JARD1TAB3 PO; +OXYC1TAB23 PO; -ceFAZolin SOD 2 GM in IV 1 EA IV ONE
== END ==
LOC: M SOG 07:55
PROVIDERS: ATTEND Orthopaedic Surgery
DX: Z47.1 Aftercare following joint replacement surgery (principal)

== ENCOUNTER 2024-07-04 07:23 | Outpatient (RCR) | payer MEDICARE, OTHER | END 2024-07-07 | LOC: M PT 07:23 | PROVIDERS: ATTEND Orthopaedic Surgery | DX: M17.12 Unilateral primary osteoarthritis, left knee (principal) ==

== ENCOUNTER → 2024-07-22 | Outpatient (CLI) | payer MEDICARE, OTHER | LOC: M RAD 07:50 | PROVIDERS: ATTEND Surgery | DX: I71.40 Abdominal aortic aneurysm, without rupture, unspecified (principal) ==

== ENCOUNTER → 2024-08-01 | Outpatient (CLI) | payer MEDICARE | LOC: M SOG 07:52 | PROVIDERS: ATTEND Orthopaedic Surgery | DX: Z47.1 Aftercare following joint replacement surgery (principal); Z96.652 Presence of left artificial knee joint ==

== ENCOUNTER 2024-08-05 14:14 | Outpatient (RCR) | payer MEDICARE | END 2024-08-06 | LOC: M PT 14:14 | PROVIDERS: ATTEND Orthopaedic Surgery | DX: M17.12 Unilateral primary osteoarthritis, left knee (principal) ==

== ENCOUNTER → 2024-11-06 | Outpatient (CLI) | payer MEDICARE, OTHER | LOC: M SOG 06:52 | PROVIDERS: ATTEND Orthopaedic Surgery | DX: Z96.652 Presence of left artificial knee joint (principal); Z47.1 Aftercare following joint replacement surgery; Z53.9 Procedure and treatment not carried out, unspecified reason ==

== ENCOUNTER → 2024-11-12 | Outpatient (CLI) | payer MEDICARE, OTHER | LOC: M SOG 06:57 | PROVIDERS: ATTEND Orthopaedic Surgery | DX: Z47.1 Aftercare following joint replacement surgery (principal); Z96.652 Presence of left artificial knee joint ==

== ENCOUNTER → 2025-03-18 | Outpatient (CLI) | payer MEDICARE, OTHER ==
[2025-03-18 12:54] LABS: BASO # 0.1 10^3/uL (0.0-0.2); BASO % 0.8 % (0.0-1.0); EOS # 0.2 10^3/uL (0.0-0.5); EOS % 2.1 % (0.0-3.0); LYMPH # 2.9 10^3/uL (1.5-5.0); LYMPH % 34.2 % (24.0-44.0); MONO # 0.5 10^3/uL (0.0-0.8); MONO % 6.2 % (2.0-8.0); NEUTROPHILS # 4.8 10^3/uL (1.5-8.5); NEUTROPHILS % 56.2 % (36.0-66.0); PLATELET COUNT, AUTOMATED 170 10^3/uL (150-450)
[2025-03-18 13:07] LABS: ALT/SGPT 82 U/L (7.0-40); AST/SGOT 57 U/L (<34); CALCIUM LEVEL 9.7 MG/DL (8.5-10.1); CARBON DIOXIDE LEVEL 26 MMOL/L (20-31); CHLORIDE LEVEL 94 MMOL/L (98-107); CHOLESTEROL LEVEL 349 MG/DL (<200); CHOLESTEROL RISK RATIO 16.15 (<5); CREATININE FOR GFR 0.95 MG/DL (0.70-1.30); GLOMERULAR FILTRATION RATE > 90.0 (>56); NON-HDL-C 327.4 MG/DL; POTASSIUM SERUM 4.1 MMOL/L (3.5-5.1); SODIUM LEVEL 132 MMOL/L (136-145); TRIGLYCERIDES LEVEL 1851 MG/DL (<150)
== END ==
LOC: M WUC 08:01
PROVIDERS: ATTEND Registered Nurse
DX: E11.9 Type 2 diabetes mellitus without complications (principal); E78.2 Mixed hyperlipidemia